=== PATIENT | female | born 1935 | race Caucasian/White ===

== ENCOUNTER 2018-02-07 02:00 | Inpatient (IN) | payer MEDICARE, OTHER ==
[2018-02-07 02:58] LABS: BASO % 0.6 % (0-2.0); EOS % 2.5 % (0-4.5); HEMATOCRIT 24.7 % (32.4-45.2); HEMOGLOBIN 8.1 GM/dL (10.7-15.3); LYMPH % 2.6 % (8-40); MCH 29.1 pg (25.7-33.7); MCHC 32.8 g/dl (32.0-36.0); MEAN CELL VOLUME 88.5 fl (80-96); MEAN PLT VOLUME 9.8 fl (7.5-11.1); MONO % 4.7 % (3.8-10.2); NEUT % 89.6 % (42.8-82.8); PLATELET COUNT 288 K/MM3 (134-434); RBC 2.79 M/mm3 (3.60-5.2); RDW 18.8 % (11.6-15.6); WHITE BLOOD COUNT 19.8 K/mm3 (4.0-10.0)
--- NOTE | 2018-02-07 03:07 | PDOC ---
Attending Attestation - Resident Resident Name: Lianna Tinajero - ED Attending Attestation I have performed the following: I have examined & evaluated the patient, The case was reviewed & discussed with the resident, I agree w/resident's findings & plan - HPI HPI: 02/07/18 03:06 Pt comes with SOB and decreased O2sat despite her trach collar/trach tube. Pt was suctioned with bloody mucus and sats came up. However she is not febrile, but continues to have mucus production thru tube and desaturation. - Physicial Exam PE: 02/07/18 23:57 AGree with resident exam - Critical Care Time Total Critical Care Time: 60 Critical Care Statement: The care of this patient involved high complexity decision making to prevent further life threatening deterioration of the patient 's condition and/or to evaluate & treat vital organ system(s) failure or risk of failure. - Medical Decision Making 02/07/18 04:56 Pt comes with fever,SOB, pneumonia, UTI, no sepsis, but SOB. Pt has a trach collar in place. She also has anasarca; BNP is in the thousands. BP is low, and BUN/Cr are elevated, so I will not treat with lasix 02/07/18 04:59 Vocomycin, Zosyn and Zithromax given. <Nelida Calvert - Last Filed: 02/07/18 23:57> Heart Score/ECG Review - ECG Intrepretation Comment:: 02/07/18 04:53 Completed 4:27:50 sinus rhythm with marked sinus arrhythia Low voltage QRS Cannot rule out Anteroseptal infarct, age undetermined Abnormal ECG Vent. rate [address] interval 172 ms QRS duration 68 ms <Donald Hernandez - Last Filed: 02/07/18 04:53>
[2018-02-07] MEDS ORDERED: ACETAMINOPHEN INJECTION 100 ML IVPB ONE (03:17)
[2018-02-07 03:18] LABS: URINE APPEARANCE TURBID; URINE BILIRUBIN NEGATIVE (<2.0 mg/dL); URINE COLOR AMBER; URINE GLUCOSE (UA) NEGATIVE (NEGATIVE); URINE KETONE TRACE (NEGATIVE); URINE NITRITE NEGATIVE (NEGATIVE); URINE UROBILINOGEN NEGATIVE mg/dL (0.2-1.0)
[2018-02-07 03:19] LABS: URINE LEUK ESTERASE 3+ (NEGATIVE); URINE PROTEIN 2+ (NEGATIVE)
[2018-02-07] MEDS ORDERED: ACETAMINOPHEN 1000 MG/100 ML VIAL (NON FORMULARY) IVPB ONE (03:21)
[2018-02-07] MEDS ORDERED: SODIUM CHLORIDE 0.9% 500 ML INFUS.BAG IV ONE (03:21)
[2018-02-07 03:25] LABS: URINE BACTERIA RARE /hpf (NONE SEEN); URINE MUCUS RARE; YEAST MANY
[2018-02-07 03:26] LABS: INR 1.19 (0.82-1.09); PROTHROMBIN TIME (PATIENT) 13.5 SEC (9.7-13.0)
[2018-02-07 03:28] LABS: ALBUMIN 1.8 g/dl (3.4-5.0); ANION GAP 5 (8-16); BILIRUBIN,TOTAL 0.2 mg/dL (0.2-1.0); BLOOD UREA NITROGEN 39 mg/dL (7-18); CALCIUM 9.6 mg/dL (8.5-10.1); CHLORIDE 94 mmol/L (98-107); CO2 39 mmol/L (21-32); CREATININE 1.1 mg/dL (0.55-1.02); GLUCOSE,RANDOM 148 mg/dL (74-106); SGOT/AST 15 U/L (15-37); SGPT/ALT < 6 U/L (12-78); SODIUM 138 mmol/L (136-145); TOT PROT 6.2 g/dl (6.4-8.2)
[2018-02-07 03:30] LABS: ALK PHOS 65 U/L (45-117); N-TERMINAL BNP 13485.56 pg/ml (5-450)
[2018-02-07] MEDS ORDERED: PIPERACILLIN/TAZOB 3.375 GM 3.375 GM/50 ML BAG IVPB ONE (03:43)
--- NOTE | 2018-02-07 03:56 | PDOC ---
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 EMS notes that when they arrived on scene at the SNF she was ashen and hypoxic. They removed her from the vent, suctioned her, and Ambu-Bagged her with improvement in her O2 and mental status. They do note that she coughed up what looked like Ensure chocolate shake and believe that she aspirated this. The patient has been seen here at [facility] for similar respiratory distress in the past and was most recently admitted for this in 10/2017. Here in the ED she is unable to provide any of her medical history as she is nonverbal. <Lianna Tinajero - Last Filed: 02/07/18 05:38> - General Chief Complaint: Respiratory Stated Complaint: DIFFICULTY BREATHING Time Seen by Provider: 02/07/18 02:55 Past History <EnrikeNelida - Last Filed: 02/07/18 05:00> - Past Medical History Anemia: No Cardiac Disorders: (Afib) COPD: No Diabetes: Yes GI Disorders: Yes (GERD,) HTN: Yes Hypercholesterolemia: Yes Psychiatric Problems: Yes (depression,) - Suicide/Smoking/Psychosocial Hx Smoking History: Unknown if ever smoked Have you smoked in the past 12 months: No Hx Alcohol Use: No Drug/Substance Use Hx: No Substance Use Type: None <Lianna Tinajero - Last Filed: 02/07/18 05:38> - Past Medical History Allergies/Adverse Reactions: Allergies Allergy/AdvReac Type Severity Reaction Status Date / Time No Known Allergies Allergy Verified 11/09/17 15:43 Home Medications: Ambulatory Orders Acetaminophen Oral Solution [Tylenol 160mg/5mL Oral Solution -] 160 mg GT Q6H PRN 11/09/17 Albuterol 0.083% Nebulizer Hue [Ventolin 0.083% Nebulizer Soln -] 1 neb NEB Q4H PRN 11/09/17 Aspirin [ASA -] 81 mg GT DAILY 11/09/17 Atorvastatin Ca [Lipitor] 80 mg GT HS 11/09/17 Budesonide [Pulmicort 0.5 mg Nebulizer -] 1 neb GT BID 11/09/17 Collagenase Clostridium Hist. [Santyl -] 1 applic TP DAILY 11/09/17 Insulin Glargine,Hum.rec.anlog [Lantus] 18 unit SQ HS 11/09/17 Ipratropium [place] [Atrovent Hfa] 4 puff IH Q4H 11/09/17 Ranitidine HCl 150 mg GT DAILY 11/09/17 Sennosides [Senna] 8.8 mg GT HS 11/09/17 Venlafaxine HCl ER [Effexor Xr -] 75 mg GT DAILY 11/09/17 Albuterol 2.5/Ipratropium 0.5 [Duoneb -] 1 amp NEB Q6H PRN #60 amp 11/26/17 Amino Acids/Protein Hydrolys [Prosource No Carb Liquid Pkt] 30 ml GT DAILY packet 11/26/17 Ascorbic Acid [Vitamin C -] 500 mg GT BID tablet 11/26/17 Bacitracin - [Bacitracin Topical Ointment -] 1 applic TP BID tube 11/26/17 Gabapentin Liquid [Neurontin Oral Liquid -] 100 mg GT TID ml 11/26/17 Insulin Sliding Scale [Novolog Vial Sliding Scale -] 1 vial SQ TIDAC units 10/15 Multivitamins [Multivit ([facility] Formulary)] 1 tab NR DAILY #30 tab 11/26/17 Nystatin/Triamcinolone Top Oin [Mycolog II -] 1 applic TP BID applic 11/26/17 traMADol HCL [Ultram -] 50 mg PO Q6H PRN tablet MDD 4 11/26/17 Insulin (Levemir) [Levemir Vial] 15 units SQ HS ml 11/27/17 Piperacillin/Tazob 3.375 gm [Zosyn 3.375GM Ivpb (Premix)] 3.375 gm IV TID #21 ivpb 11/27/17 Review of Systems - Review of Systems Able to Perform ROS?: No (Nonverbal) <Lianna Tinajero - Last Filed: 02/07/18 05:38> *Physical Exam - Vital Signs Last Vital Signs Temp Pulse Resp BP Pulse Ox 100.9 F H 100 H 14 129/71 98 02/07/18 03:15 02/07/18 02:16 02/07/18 04:30 02/07/18 02:00 02/07/18 02:16 <Nelida Calvert - Last Filed: 02/07/18 05:00> - Vital Signs Last Vital Signs Temp Pulse Resp BP Pulse Ox 100.9 F H 100 H 14 129/71 98 02/07/18 03:15 02/07/18 02:16 02/07/18 02:16 02/07/18 02:00 02/07/18 02:16 - Physical Exam General Appearance: Yes: Other (elderly female patient with tracheostomy tube in place, being Ambu-Bagged, eyes are open but she does not track with her eyes or interact with examiners, nightgown with emesis, wearing diaper, Cotter indwelling) HEENT: positive: SUZANNE, Hearing Grossly Normal, Other (dry mucous membranes). negative: Scleral Icterus (R), Scleral Icterus (L), Nasal Congestion Neck: positive: Trachea midline, Supple, Other (trach in place). negative: Tender, Rigid Respiratory/Chest: positive: Respiratory Distress (mild), Crackles (left>right) . negative: Rhonchi, Stridor, Wheezing Cardiovascular: positive: Regular Rhythm, Edema (1+ to 2+ anasarca), Tachycardia. negative: JVD Gastrointestinal/Abdominal: positive: Soft, Protuberent, Other (PEG tube in place). negative: Tender, Organomegaly, Pulsatile Mass, Guarding Musculoskeletal: positive: Normal Inspection Extremity: positive: Normal Capillary Refill, Pedal Edema. negative: Tender, Cyanosis Integumentary: positive: Dry, Warm, Pale. negative: Erythema, Diaphoresis, Rash , Bruising Neurologic: positive: Alert, Normal Mood/Affect, Normal Response, Motor Strength 5/5, Other (nonverbal, does not follow commands). negative: Fully Oriented, EOM Palsy, Facial Droop <Lianna Tinajero - Last Filed: 02/07/18 05:38> Heart Score/ECG Review #1 NSR, rate of 89, normal axis and intervals, Q-waves in V1-3, t wave flattening in I and aVL. <Lianna Tinajero - Last Filed: 02/07/18 05:38> ED Treatment Course - LABORATORY CBC & Chemistry Diagram: 02/07/18 02:30 02/07/18 02:30 - ADDITIONAL ORDERS Additional order review: Laboratory Results 02/07/18 02/07/18 02/07/18 03:00 02:30 02:30 WBC RBC Hgb Hct MCV MCH MCHC RDW Plt Count MPV Neutrophils % Lymphocytes % Monocytes % Eosinophils % Basophils % PT with INR 13.50 H INR 1.19 H Sodium 138 Potassium 4.0 Chloride 94 L Carbon Dioxide 39 H Anion Gap 5 L BUN 39 H Creatinine 1.1 H Creat Clearance w eGFR 47.67 Random Glucose 148 H Lactic Acid Calcium 9.6 Total Bilirubin 0.2 D AST 15 ALT < 6 L Alkaline Phosphatase 65 Creatine Kinase 30 Troponin I < 0.02 B-Natriuretic Peptide 10003.56 H Total Protein 6.2 L Albumin 1.8 L Urine Color [place] Urine Appearance Turbid Urine pH 5.0 Ur Specific [place] 1.017 Urine Protein 2+ H Urine Glucose (UA) Negative Urine Ketones Trace H Urine Blood Negative Urine Nitrite Negative Urine Bilirubin Negative Urine Urobilinogen Negative Ur Leukocyte Esterase 3+ H Urine WBC (Auto) 1996 Urine RBC (Auto) 70 Urine Bacteria Rare Urine Mucus Rare Urine Yeast Many 02/07/18 02/07/18 02:30 00:23 WBC 19.8 H D RBC 2.79 L Hgb 8.1 L D Hct 24.7 L MCV 88.5 MCH 29.1 MCHC 32.8 RDW 18.8 H Plt Count 288 D MPV 9.8 Neutrophils % 89.6 H Lymphocytes % 2.6 L D Monocytes % 4.7 Eosinophils % 2.5 Basophils % 0.6 PT with INR INR Sodium Potassium Chloride Carbon Dioxide Anion Gap BUN Creatinine Creat Clearance w eGFR Random Glucose Lactic Acid 0.9 Calcium Total Bilirubin AST ALT Alkaline Phosphatase Creatine Kinase Troponin I B-Natriuretic Peptide Total Protein Albumin Urine Color Urine Appearance Urine pH Ur Specific [place] Urine Protein Urine Glucose (UA) Urine Ketones Urine Blood Urine Nitrite Urine Bilirubin Urine Urobilinogen Ur Leukocyte Esterase Urine WBC (Auto) Urine RBC (Auto) Urine Bacteria Urine Mucus Urine Yeast 02/07/18 02:30 RBC 2.79 L MCV 88.5 MCHC 32.8 RDW 18.8 H MPV 9.8 Neutrophils % 89.6 H Lymphocytes % 2.6 L D Monocytes % 4.7 Eosinophils % 2.5 Basophils % 0.6 - RADIOLOGY Radiology Studies Ordered: Category Date Time Status CHEST X-RAY PORTABLE* [RAD] Stat Radiology 02/07/18 02:47 Taken - Medications Given in the ED: ED Medications Discontinued Medications Generic Name Dose Route Start Last Admin Trade Name Myrna PRN Reason Stop Dose Admin Acetaminophen 1,000 mg 02/07/18 03:21 02/07/18 03:22 Ofirmev Injection - IVPB 02/07/18 03:22 1,000 mg NOW ONE Administration Sodium Chloride 500 ml 02/07/18 03:21 02/07/18 03:21 Normal Saline - IV 02/07/18 03:22 500 ml NOW ONE Administration <Nelida Calvert - Last Filed: 02/07/18 05:00> - LABORATORY CBC & Chemistry Diagram: 02/07/18 02:30 02/07/18 02:30 - ADDITIONAL ORDERS Additional order review: Laboratory Results 02/07/18 02/07/18 02/07/18 03:00 02:30 02:30 PT with INR 13.50 H INR 1.19 H Sodium 138 Potassium 4.0 Chloride 94 L Carbon Dioxide 39 H Anion Gap 5 L BUN 39 H Creatinine 1.1 H Creat Clearance w eGFR 47.67 Random Glucose 148 H Lactic Acid Calcium 9.6 Total Bilirubin 0.2 D AST 15 ALT < 6 L Alkaline Phosphatase 65 Creatine Kinase 30 Troponin I < 0.02 B-Natriuretic Peptide 54698.56 H Total Protein 6.2 L Albumin 1.8 L Urine Color [place] Urine Appearance Turbid Urine pH 5.0 Ur Specific [place] 1.017 Urine Protein 2+ H Urine Glucose (UA) Negative Urine Ketones Trace H Urine Blood Negative Urine Nitrite Negative Urine Bilirubin Negative Urine Urobilinogen Negative Ur Leukocyte Esterase 3+ H Urine WBC (Auto) 1995 Urine RBC (Auto) 70 Urine Bacteria Rare Urine Mucus Rare Urine Yeast Many 02/07/18 00:23 PT with INR INR Sodium Potassium Chloride Carbon Dioxide Anion Gap BUN Creatinine Creat Clearance w eGFR Random Glucose Lactic Acid 0.9 Calcium Total Bilirubin AST ALT Alkaline Phosphatase Creatine Kinase Troponin I B-Natriuretic Peptide Total Protein Albumin Urine Color Urine Appearance Urine pH Ur Specific [place] Urine Protein Urine Glucose (UA) Urine Ketones Urine Blood Urine Nitrite Urine Bilirubin Urine Urobilinogen Ur Leukocyte Esterase Urine WBC (Auto) Urine RBC (Auto) Urine Bacteria Urine Mucus Urine Yeast 02/07/18 02:30 RBC 2.79 L MCV 88.5 MCHC 32.8 RDW 18.8 H MPV 9.8 Neutrophils % 89.6 H Lymphocytes % 2.6 L D Monocytes % 4.7 Eosinophils % 2.5 Basophils % 0.6 - Medications Given in the ED: ED Medications Discontinued Medications Generic Name Dose Route Start Last Admin Trade Name Myrna PRN Reason Stop Dose Admin Acetaminophen 1,000 mg 02/07/18 03:21 02/07/18 03:22 Ofirmev Injection - IVPB 02/07/18 03:22 1,000 mg NOW ONE Administration Sodium Chloride 500 ml 02/07/18 03:21 02/07/18 03:21 Normal Saline - IV 02/07/18 03:22 500 ml NOW ONE Administration <Lianna Tinajero - Last Filed: 02/07/18 05:38> Medical Decision Making - Medical Decision Making Elderly female patient BIBA for respiratory distress and hypoxia, apparent aspiration of Ensure shake. Initial Vital Signs Pulse Resp BP Pulse Ox 93 H 24 129/71 100 02/07/18 02:00 02/07/18 02:00 02/07/18 02:00 02/07/18 02:00 Exam: Nonverbal, mild respiratory distress, left-sided crackles > right, anasarca, trach and PEG in place, nightgown soaked in emesis. DDX IBNLT: VS abnormalities (e.g. fever), toxic-metabolic (e.g. medications, drugs, electrolytes, thyroid), structural (e.g. epilepsy, CVA/TIA, ACS, PE), infectious (e.g. UTI, PNA, bronchitis, cellulitis, meningitis), psychiatric ( e.g. delirium, dementia, psychosis), etc. W/U ordered: Sepsis w/u, CVC placement. TX ordered: Zosyn, Vancomycin, Azithromycin (coverage for HCAP). EKG: NSR, rate of 89, normal axis and intervals, Q-waves in V1-3, t wave flattening in I and aVL. CXR: patchy bilateral consolidations most concentrated in left lingula Laboratory Tests 02/07/18 02/07/18 02/07/18 00:23 02:30 02:30 WBC 19.8 H D RBC 2.79 L Hgb 8.1 L D Hct 24.7 L MCV 88.5 MCH 29.1 MCHC 32.8 RDW 18.8 H Plt Count 288 D MPV 9.8 Neutrophils % 89.6 H Lymphocytes % 2.6 L D Monocytes % 4.7 Eosinophils % 2.5 Basophils % 0.6 PT with INR INR Sodium 138 Potassium 4.0 Chloride 94 L Carbon Dioxide 39 H Anion Gap 5 L BUN 39 H Creatinine 1.1 H Creat Clearance w eGFR 47.67 Random Glucose 148 H Lactic Acid 0.9 Calcium 9.6 Total Bilirubin 0.2 D AST 15 ALT < 6 L Alkaline Phosphatase 65 Creatine Kinase 30 Troponin I < 0.02 B-Natriuretic Peptide 57593.56 H Total Protein 6.2 L Albumin 1.8 L Urine Color Urine Appearance Urine pH Ur Specific [place] Urine Protein Urine Glucose (UA) Urine Ketones Urine Blood Urine Nitrite Urine Bilirubin Urine Urobilinogen Ur Leukocyte Esterase Urine WBC (Auto) Urine RBC (Auto) Urine Bacteria Urine Mucus Urine Yeast 02/07/18 02/07/18 02:30 03:00 WBC RBC Hgb Hct MCV MCH MCHC RDW Plt Count MPV Neutrophils % Lymphocytes % Monocytes % Eosinophils % Basophils % PT with INR 13.50 H INR 1.19 H Sodium Potassium Chloride Carbon Dioxide Anion Gap BUN Creatinine Creat Clearance w eGFR Random Glucose Lactic Acid Calcium Total Bilirubin AST ALT Alkaline Phosphatase Creatine Kinase Troponin I B-Natriuretic Peptide Total Protein Albumin Urine Color [place] Urine Appearance Turbid Urine pH 5.0 Ur Specific [place] 1.017 Urine Protein 2+ H Urine Glucose (UA) Negative Urine Ketones Trace H Urine Blood Negative Urine Nitrite Negative Urine Bilirubin Negative Urine Urobilinogen Negative Ur Leukocyte Esterase 3+ H Urine WBC (Auto) 1996 Urine RBC (Auto) 70 Urine Bacteria Rare Urine Mucus Rare Urine Yeast Many Vital Signs Temperature 100.9 F H 02/07/18 03:15 Pulse Rate 91 H 02/07/18 05:10 Respiratory Rate 14 02/07/18 05:10 Blood Pressure 97/58 02/07/18 05:10 O2 Sat by Pulse Oximetry (%) 100 02/07/18 05:10 The patient is septic, has a UTI, also e/o aspiration PNA on CXR. They require further hospital observation, workup, and treatment. Microblog sent to [facility] for admission. Spoke with Soniachristine, in agreement patient to be admitted to ICU. Spoke with ICU HARDWARE TEST ENGINEER who will be leaving at 6 am. Decision to Admit order placed to [facility] covering attending Dr. Carlton. <Lianna Tinajero - Last Filed: 02/07/18 05:38> *DC/Admit/Observation/Transfer - Discharge Dispostion Decision to Admit order: Yes <CalvertVirginieNelida - Last Filed: 02/07/18 05:00> - Discharge Dispostion Decision to Admit order: Yes <Lianna Tinajero - Last Filed: 02/07/18 05:38> Diagnosis at time of Disposition: Decubitus ulcer of sacral region, stage 4 Sepsis Qualifiers: Sepsis type: sepsis due to unspecified organism Qualified Code(s): A41.9 - Sepsis, unspecified organism Pneumonia Qualifiers: Pneumonia type: due to unspecified organism Laterality: unspecified laterality Lung location: unspecified part of lung Qualified Code(s): J18.9 - Pneumonia, unspecified organism UTI (urinary tract infection) Qualifiers: Urinary tract infection type: site unspecified Hematuria presence: without hematuria Qualified Code(s): N39.0 - Urinary tract infection, site not specified CHF (congestive heart failure) Qualifiers: Heart failure type: unspecified Heart failure chronicity: unspecified Qualified Code(s): I50.9 - Heart failure, unspecified Fever Qualifiers: Fever type: unspecified Qualified Code(s): R50.9 - Fever, unspecified Dementia Qualifiers: Dementia type: unspecified type Dementia behavioral disturbance: without behavioral disturbance Qualified Code(s): F03.90 - Unspecified dementia without behavioral disturbance Atrial fibrillation Qualifiers: Atrial fibrillation type: paroxysmal Qualified Code(s): I48.0 - Paroxysmal atrial fibrillation - Discharge Dispostion Condition at time of disposition: Guarded
[2018-02-07] MEDS ORDERED: AZITHROMYCIN IVPB 500 MG in DEXTROSE 5%-WATER - 250 ML IVPB ONE (04:32)
[2018-02-07] MEDS ORDERED: VANCOMYCIN 1,000 MG in DEXTROSE 5%-WATER - 250 ML IVPB ONE (04:32)
[2018-02-07] MEDS ORDERED: AZITHROMYCIN IVPB 250 ML IVPB ONE (04:42)
[2018-02-07] MEDS ORDERED: VANCOMYCIN 1 GRAM (PRE-DOCKED) 1,000 MG/250 ML BAG IVPB ONE (04:43)
--- NOTE | 2018-02-07 05:12 | HP ---
CHIEF COMPLAINT: aspirated PCP: [facility] HISTORY OF PRESENT ILLNESS: Pt is an 82 y/o F [facility] resident with PMH COPD s/p trach, DM, DVT, AF, Lung CA, Stage IV decub, Dementia, nonverbal who was reportedly given ensure, which she aspirated. Pt became distressed and EMS was called. Suctioning yielded copious amounts of her ensure and her status improved. In ED, IV access was unsuccessful, so a L femoral line was placed. ER course was notable for: (1) Fever 100.9 (2) 19 (higher than usual leukocytosis), Hb 8.1, Migration Specialist 1.1, BNP 72998, Trop neg, UA 3+LE/WBCs, Yeast (3) CXR: b/l patchy opacification, blunting of R Costo-phrenic angle Recent Travel: no PAST MEDICAL HISTORY: [facility] resident with PMH COPD s/p trach, DM, DVT, AF, Lung CA, Stage IV decub, Dementia, nonverbal PAST SURGICAL HISTORY: Social History: Smoking: no Alcohol:no Drugs: no Family History: Allergies No Known Allergies Allergy (Verified 11/09/17 15:43) HOME MEDICATIONS: Home Medications Medication Instructions Recorded Acetaminophen Oral Solution 160 mg GT Q6H PRN 11/09/17 [Tylenol 160mg/5mL Oral Solution -] Albuterol 0.083% Nebulizer Hue 1 neb NEB Q4H PRN 11/09/17 [Ventolin 0.083% Nebulizer Soln -] Aspirin [ASA -] 81 mg GT DAILY 11/09/17 Atorvastatin Ca [Lipitor] 80 mg GT HS 11/09/17 Budesonide [Pulmicort 0.5 mg 1 neb GT BID 11/09/17 Nebulizer -] Collagenase Clostridium Hist. 1 applic TP DAILY 11/09/17 [Santyl -] Insulin Glargine,Hum.rec.anlog 18 unit SQ HS 11/09/17 [Lantus] Ipratropium [place] [Atrovent Hfa] 4 puff IH Q4H 11/09/17 Ranitidine HCl 150 mg GT DAILY 11/09/17 Sennosides [Senna] 8.8 mg GT HS 11/09/17 Venlafaxine HCl ER [Effexor Xr -] 75 mg GT DAILY 11/09/17 Albuterol 2.5/Ipratropium 0.5 1 amp NEB Q6H PRN #60 amp 11/26/17 [Duoneb -] Amino Acids/Protein Hydrolys 30 ml GT DAILY packet 11/26/17 [Prosource No Carb Liquid Pkt] Ascorbic Acid [Vitamin C -] 500 mg GT BID tablet 11/26/17 Bacitracin - [Bacitracin Topical 1 applic TP BID tube 11/26/17 Ointment -] Gabapentin Liquid [Neurontin Oral 100 mg GT TID ml 11/26/17 Liquid -] Insulin Sliding Scale [Novolog 1 vial SQ TIDAC units 11/26/17 Vial Sliding Scale -] Multivitamins [Multivit ([facility] 1 tab NR DAILY #30 tab 11/26/17 Formulary)] Nystatin/Triamcinolone Top Oin 1 applic TP BID applic 11/26/17 [Mycolog II -] traMADol HCL [Ultram -] 50 mg PO Q6H PRN tablet MDD 4 11/26/17 Insulin (Levemir) [Levemir Vial] 15 units SQ HS ml 11/27/17 Piperacillin/Tazob 3.375 gm [Zosyn 3.375 gm IV TID #21 ivpb 11/27/17 3.375GM Ivpb (Premix)] REVIEW OF SYSTEMS Unable to obtain. Pt nonverbal. PHYSICAL EXAMINATION Vital Signs - 24 hr 02/07/18 02/07/18 02/07/18 02:00 02:16 03:15 Temperature 100.9 F H Pulse Rate 93 H 100 H Respiratory 24 14 Rate Blood Pressure 129/71 O2 Sat by Pulse 100 98 Oximetry (%) 02/07/18 04:30 Temperature Pulse Rate Respiratory 14 Rate Blood Pressure O2 Sat by Pulse Oximetry (%) GENERAL: Awake, Unresponsive, not following commands. Reportedly this is baseline. HEAD: Normal with no signs of trauma. EYES: sclera anicteric, conjunctiva clear. No lid lag. EARS, NOSE, THROAT: oropharynx clear with food particulates around but no lesions. Pt does not cooperate with exam. Moist mucous membranes. NECK: Trach tube supple without lymphadenopathy, JVD, or masses. LUNGS: Breath sounds equal, Coarse breath sounds. No accessory muscle use. HEART: Regular rate and rhythm, normal S1 and S2 without murmur, rub or gallop. ABDOMEN: PEG cdi. L fem line cdi. Stage IV sacral decub. Soft, not distended, normoactive bowel sounds, no guarding, no rebound, no masses. No hepatomegaly or splenomegaly. MUSCULOSKELETAL: Normal range of motion at all joints. No bony deformities or tenderness. No CVA tenderness. UPPER EXTREMITIES: 2+ pulses, warm, well-perfused. No cyanosis. No clubbing. No peripheral edema. LOWER EXTREMITIES: 2+ pulses, warm, well-perfused. No calf tenderness. No peripheral edema. somewhat atrophic NEUROLOGICAL: nonverbal PSYCHIATRIC: nonverbal SKIN: Stage IV decub. Small superficial L buttock lesion appears self- inflicted. Laboratory Results - last 24 hr 02/07/18 02/07/18 02/07/18 00:23 02:30 02:30 WBC 19.8 H D RBC 2.79 L Hgb 8.1 L D Hct 24.7 L MCV 88.5 MCH 29.1 MCHC 32.8 RDW 18.8 H Plt Count 288 D MPV 9.8 Neutrophils % 89.6 H Lymphocytes % 2.6 L D Monocytes % 4.7 Eosinophils % 2.5 Basophils % 0.6 PT with INR INR Sodium 138 Potassium 4.0 Chloride 94 L Carbon Dioxide 39 H Anion Gap 5 L BUN 39 H Creatinine 1.1 H Creat Clearance w eGFR 47.67 Random Glucose 148 H Lactic Acid 0.9 Calcium 9.6 Total Bilirubin 0.2 D AST 15 ALT < 6 L Alkaline Phosphatase 65 Creatine Kinase 30 Troponin I < 0.02 B-Natriuretic Peptide 26784.56 H Total Protein 6.2 L Albumin 1.8 L Urine Color Urine Appearance Urine pH Ur Specific [place] Urine Protein Urine Glucose (UA) Urine Ketones Urine Blood Urine Nitrite Urine Bilirubin Urine Urobilinogen Ur Leukocyte Esterase Urine WBC (Auto) Urine RBC (Auto) Urine Bacteria Urine Mucus Urine Yeast 02/07/18 02/07/18 02:30 03:00 WBC RBC Hgb Hct MCV MCH MCHC RDW Plt Count MPV Neutrophils % Lymphocytes % Monocytes % Eosinophils % Basophils % PT with INR 13.50 H INR 1.19 H Sodium Potassium Chloride Carbon Dioxide Anion Gap BUN Creatinine Creat Clearance w eGFR Random Glucose Lactic Acid Calcium Total Bilirubin AST ALT Alkaline Phosphatase Creatine Kinase Troponin I B-Natriuretic Peptide Total Protein Albumin Urine Color [place] Urine Appearance Turbid Urine pH 5.0 Ur Specific [place] 1.017 Urine Protein 2+ H Urine Glucose (UA) Negative Urine Ketones Trace H Urine Blood Negative Urine Nitrite Negative Urine Bilirubin Negative Urine Urobilinogen Negative Ur Leukocyte Esterase 3+ H Urine WBC (Auto) 1995 Urine RBC (Auto) 70 Urine Bacteria Rare Urine Mucus Rare Urine Yeast Many ASSESSMENT/PLAN: Pt is an 82 y/o F [facility] resident with PMH COPD s/p trach, DM, DVT, AF, Lung CA, Stage IV decub, Dementia, nonverbal who was reportedly given ensure, which she aspirated. Pt is being admitted for evaluation and treatment of Aspiration PNA. #Sepsis 2/2 UTI vs Aspiration PNA -Suctioning yielde dlots of ensure -Ox improved after suction -febrile -WBC increased from baseline -CXR with opacities -Vanc, Zosyn -Hassan Cx -ID consult #UTI -LE, WBC on UA -on Zosyn #CHF exacerbation -BNP - #COPD s/p trach -vent AC mode. rate 14, tidal vol 500, FiO2 50 #DM -BGM ACHS -ISS #AF -Not on AC per record #Stage IV decub -local wound care #FEN -NS at 50. Sepsis, CHF -lytes wnl -NPO #PPx -HSQ #Dispo -Admit for Sepsis Visit type - Emergency Visit Emergency Visit: Yes ED Registration Date: 02/07/18 Care time: The patient presented to the Emergency Department on the above date and was hospitalized for further evaluation of their emergent condition. - New Patient This patient is new to me today: Yes Date on this admission: 02/09/18 - Critical Care Critical Care patient: Yes Total Critical Care Time (in minutes): 25 Hospitalist Screening - Colonoscopy Questionnaire Colonoscopy Questionnaire: Colonoscopy Questionnaire - Patient: 50 - 75 years old and never had a screening colonoscopy: Unknown History of colon or rectal polyps, or CA: Unknown History of IBD, Crohn's disease or UC: Unknown History of abdominal radiation therapy as a child: Unknown - Relative: 1 with colon or rectal CA, or polyps at age 60 or younger: Unknown Colon or rectal CA diagnosed at age 45 or younger: Unknown Multiple relatives with colon or rectal CA: Unknown - Outcome: Screening Result: Negative Screen
[2018-02-07] MEDS ORDERED: SODIUM CHLORIDE 1,000 ML IV SCH ×2 (05:15→05:27)
--- NOTE | 2018-02-07 05:30 | PN ---
Teaching Attending Note Name of Resident: Jesus Manuel Burns ATTENDING PHYSICIAN STATEMENT I saw and evaluated the patient. I reviewed the resident's note and discussed the case with the resident. I agree with the resident's findings and plan as documented. SUBJECTIVE: OBJECTIVE: ASSESSMENT AND PLAN: Pt is an 82 y/o F [facility] resident with PMH COPD s/p trach, DM, DVT, AF, Lung CA, Stage IV decub, Dementia, nonverbal who was reportedly given ensure, which she aspirated. Pt is being admitted for evaluation and treatment of Aspiration PNA. #Sepsis 2/2 UTI vs Aspiration PNA -febrile - neutrophilic -CXR with opacities -Vanc, Zosyn -Hassan Cx -ID consult - fluid hydration - admit to ICU #UTI -LE, WBC on UA -on Zosyn #CHF manage the patient for sepsis now will hold antihypertensive medication #COPD s/p trach -vent AC mode. rate 14, tidal vol 500, FiO2 50
[2018-02-07] MEDS ORDERED: HEPARIN NA (PORCINE) 5,000 UNITS/ML 1ML VIAL ONE (07:01)
[2018-02-07] MEDS: HEPARIN NA (PORCINE) 5,000 UNITS/ML 1ML VIAL SQ SCH ×3 (07:01→21:01)
[2018-02-07 07:19] LABS: HEMOGLOBIN 7.9 GM/dL (10.7-15.3); MCH 28.9 pg (25.7-33.7); MCHC 32.8 g/dl (32.0-36.0); MEAN CELL VOLUME 88.3 fl (80-96); MEAN PLT VOLUME 9.4 fl (7.5-11.1); PLATELET COUNT 264 K/MM3 (134-434); RBC 2.72 M/mm3 (3.60-5.2); RDW 18.8 % (11.6-15.6); WHITE BLOOD COUNT 22.7 K/mm3 (4.0-10.0)
[2018-02-07 07:42] LABS: ALBUMIN 1.8 g/dl (3.4-5.0); ALK PHOS 67 U/L (45-117); ANION GAP 6 (8-16); BILIRUBIN,TOTAL 0.3 mg/dL (0.2-1.0); BLOOD UREA NITROGEN 41 mg/dL (7-18); CALCIUM 9.5 mg/dL (8.5-10.1); CHLORIDE 94 mmol/L (98-107); CO2 36 mmol/L (21-32); CREATININE 1.1 mg/dL (0.55-1.02); GLUCOSE,RANDOM 137 mg/dL (74-106); INR 1.2 (0.82-1.09); POTASSIUM 4.1 mmol/L (3.5-5.1); PROTHROMBIN TIME (PATIENT) 13.6 SEC (9.7-13.0); SGOT/AST 15 U/L (15-37); SGPT/ALT < 6 U/L (12-78); SODIUM 136 mmol/L (136-145); TOT PROT 6.1 g/dl (6.4-8.2)
[2018-02-07 07:43] LABS: ARTERIAL BLD GAS O2 SATURATION 96.4 % (90-98.9); ARTERIAL BLOOD GAS PCO2 58.9 mmHg (35-45); ARTERIAL BLOOD GAS PO2 82.4 mmHg (68-100); ARTERIAL BLOOD GAS pH 7.38 (7.35-7.45)
[2018-02-07 07:44] LABS: ALLENS TEST POSITIVE
[2018-02-07 07:45] LABS: ACTIVATED PTT 26.5 SECONDS (26.9-34.4)
--- NOTE | 2018-02-07 08:20 | EKG ---
Test Reason : Blood Pressure : / mmHG Vent. Rate : 089 BPM Atrial Rate : 089 BPM P-R Int : 172 ms QRS Dur : 068 ms QT Int : 346 ms P-R-T Axes : 086 087 077 degrees QTc Int : 420 ms SINUS RHYTHM WITH MARKED SINUS ARRHYTHMIA LOW VOLTAGE QRS CANNOT RULE OUT ANTEROSEPTAL INFARCT (CITED ON OR BEFORE 27-JUN-2000) ABNORMAL ECG WHEN COMPARED WITH ECG OF 09-NOV-2017 15:00, NO SIGNIFICANT CHANGE WAS FOUND Confirmed by RAKAN BRYAN, JUAN JOSÉ ([id number]) on 02/07/2018 8:19:59 AM Referred By: Confirmed By:JUAN JOSÉ BLEDSOE MD
[2018-02-07 09:36] LABS: ANISOCYTOSIS 2+; PLATELET ESTIMATE NORMAL
--- NOTE | 2018-02-07 09:46 | CONSULT ---
Consult Consult Specialty:: CCM/PULM Referred by:: KRISTIE Reason for Consultation:: Sepsis - History of Present Illness History of Present Illness: 82 F, known to me from previous admissions. Chronic respiratory failure via tracheostomy, COPD, DVT, A-fib, PEG tube, known lung CA (dominant mass in the JANY with bilateral nodules likely mets), DM, sacral decubitus ulcer, and dementia. Admitted via the ER due to respiratory distress and O2 desaturation. Apparently EMS removed her from the vent, suctioned her, and Ambu-Bagged her with improvement in her O2 and mental status. Apparently she coughed out material that appeared like chocolate Ensure. IO and femoral TLC placed in the ER. - History Source History Provided By: Medical Record Limitations to Obtaining History: Clinical Condition - Past Medical History STORAGE MANAGER: Yes: Dementia Cardio/Vascular: Yes: AFIB, Other (DVT) Pulmonary: Yes: Cancer (Lung), COPD, Other (Tracheostomy) Gastrointestinal: Yes: Other (PEG) Endocrine: Yes: Diabetes Mellitus - Alcohol/Substance Use Hx Alcohol Use: No - Smoking History Smoking history: Unknown if ever smoked Have you smoked in the past 12 months: No Home Medications - Allergies Allergies/Adverse Reactions: Allergies Allergy/AdvReac Type Severity Reaction Status Date / Time No Known Allergies Allergy Verified 02/07/18 06:49 - Home Medications Home Medications: Ambulatory Orders Acetaminophen Oral Solution [Tylenol 160mg/5mL Oral Solution -] 160 mg GT Q6H PRN 11/09/17 Albuterol 0.083% Nebulizer Hue [Ventolin 0.083% Nebulizer Soln -] 1 neb NEB Q4H PRN 11/09/17 Aspirin [ASA -] 81 mg GT DAILY 11/09/17 Ipratropium Rusk [Atrovent Hfa] 4 puff IH Q4H 11/09/17 Sennosides [Senna] 9.7 ml GT HS 11/09/17 Albuterol 2.5/Ipratropium 0.5 [Duoneb -] 1 amp NEB Q6H PRN #60 amp 11/26/17 Amino Acids/Protein Hydrolys [Prosource No Carb Liquid Pkt] 30 ml GT DAILY packet 11/26/17 Bacitracin - [Bacitracin Topical Ointment -] 1 applic TP BID tube 11/26/17 Nystatin/Triamcinolone Top Oin [Mycolog II -] 1 applic TP BID applic 11/26/17 Ascorbic Acid [Vitamin C -] 500 mg GT BID 02/07/18 Budesonide/Formeterol Fumarate [SYMBICORT 160/4.5mcg -] 2 inh PO BID 02/07/18 Carbidopa/Levodopa [Carbidopa-Levodopa 25-100 Tab] 1 each GT Q8H 02/07/18 Docusate Liquid [Colace Liquid -] 100 mg GT TID 02/07/18 Ergocalciferol (Vitamin D2) [Ergocalciferol] 6.25 ml GT WEEKLY 02/07/18 Famotidine [Pepcid -] 20 mg GT DAILY 02/07/18 Ferrous Sulfate *Liquid* [Feosol] 6.8 ml PO DAILY 02/07/18 Insulin Glargine,Hum.rec.anlog [Lantus Solostar] 5 unit SQ HS 02/07/18 Zinc Oxide 20% Topical Oint 454 gm NR ASDIR 02/07/18 Review of Systems Unable to obtain ROS, reason: not able to provide Physical Exam Vital Signs: Vital Signs Temperature 100.7 F H 02/07/18 08:00 Pulse Rate 92 H 02/07/18 08:00 Respiratory Rate 14 02/07/18 09:24 Blood Pressure 90/56 02/07/18 08:00 O2 Sat by Pulse Oximetry (%) 93 L 02/07/18 07:45 Constitutional: Yes: Other (vented) Eyes: Yes: Conjunctiva Clear HENT: Yes: Atraumatic, Normocephalic Neck: Yes: Trachea Midline, Other (Trach intact) Cardiovascular: Yes: Pulse Irregular Respiratory: Yes: Mechanically Ventilated, Poor Air Entry, Rhonchi, Tachypnea. No: Stridor, Wheezes Gastrointestinal: Yes: Normal Bowel Sounds, Soft Musculoskeletal: Yes: WNL Extremities: Yes: WNL Edema: No Peripheral Pulses WNL: Yes Integumentary: Yes: WNL Neurological: Yes: Unresponsive Labs: CBC, BMP 02/07/18 07:00 02/07/18 07:00 Imaging - Results Chest X-ray: Report Reviewed, Image Reviewed Problem List - Problems (1) Atrial fibrillation Code(s): I48.91 - UNSPECIFIED ATRIAL FIBRILLATION Qualifiers: Atrial fibrillation type: paroxysmal Qualified Code(s): I48.0 - Paroxysmal atrial fibrillation (2) CHF (congestive heart failure) Code(s): I50.9 - HEART FAILURE, UNSPECIFIED Qualifiers: Heart failure type: unspecified Heart failure chronicity: unspecified Qualified Code(s): I50.9 - Heart failure, unspecified (3) Decubitus ulcer of sacral region, stage 4 Code(s): L89.154 - PRESSURE ULCER OF SACRAL REGION, STAGE 4 (4) Dementia Code(s): F03.90 - UNSPECIFIED DEMENTIA WITHOUT BEHAVIORAL DISTURBANCE Qualifiers: Dementia type: unspecified type Dementia behavioral disturbance: without behavioral disturbance Qualified Code(s): F03.90 - Unspecified dementia without behavioral disturbance (5) Fever Code(s): R50.9 - FEVER, UNSPECIFIED Qualifiers: Fever type: unspecified Qualified Code(s): R50.9 - Fever, unspecified (6) Pneumonia Code(s): J18.9 - PNEUMONIA, UNSPECIFIED ORGANISM Qualifiers: Pneumonia type: due to unspecified organism Laterality: unspecified laterality Lung location: unspecified part of lung Qualified Code(s): J18.9 - Pneumonia, unspecified organism (7) Acute on chronic respiratory failure with hypercapnia Code(s): J96.22 - ACUTE AND CHRONIC RESPIRATORY FAILURE WITH HYPERCAPNIA (8) Diabetes Code(s): E11.9 - TYPE 2 DIABETES MELLITUS WITHOUT COMPLICATIONS (9) Lung cancer Code(s): C34.90 - MALIGNANT NEOPLASM OF UNSP PART OF UNSP BRONCHUS OR LUNG Assessment/Plan ABX per ID AC Mode of vent BD TX Hassan-cultures IVF Titrate FiO2 Add PEEP 5 Follow CXR (possible JANY Post-obstructive PNA) VTE prophylaxis Suction as needed ICU monitoring Dr Smith Critical care time spent in reviewing chart, evaluating patient and formulating plan - 36 minutes.
[2018-02-07] MEDS ORDERED: DEXTROSE 5%-WATER - 50 ML IVPB ONE (09:55)
[2018-02-07] MEDS ORDERED: PIPERACILLIN/TAZOBACTAM 3.375 GM VIAL IVPB ONE (09:55)
[2018-02-07] MEDS: ACETAMINOPHEN 325 MG TABLET (FP) PO PRN ×2 (10:00→16:00)
[2018-02-07] MEDS ORDERED: PIPERACILLIN/TAZOB 3.375 GM 3.375 GM in DEXTROSE 5%-WATER - 50 ML IVPB SCH ×2 (10:00→18:00)
--- NOTE | 2018-02-07 10:13 | PN ---
Progress Note (short form) - Note Progress Note: ID consult dictated imp/reccd 82 year old female admitted from [place]- she has chronic resp failure with trach/ vent, lung cancer she was sent with SOB and hypoxia ambubagged and suctioned with improvement +copious secretions, ?ensure elevated WBC cxray with increased left perihilar infiltrate -?postobstructive possible pneumonia pyuria would continue zosyn/vancomycin -one dose tobramycin pending cultures- history of MDR pseudomonas and esbl Kleb in cultures in the past f/u cultures contact isolation wound care for sacral ulcer Problem List - Problems (1) Pneumonia Code(s): J18.9 - PNEUMONIA, UNSPECIFIED ORGANISM Qualifiers: Pneumonia type: due to unspecified organism Laterality: unspecified laterality Lung location: unspecified part of lung Qualified Code(s): J18.9 - Pneumonia, unspecified organism (2) UTI (urinary tract infection) Code(s): N39.0 - URINARY TRACT INFECTION, SITE NOT SPECIFIED Qualifiers: Urinary tract infection type: site unspecified Hematuria presence: without hematuria Qualified Code(s): N39.0 - Urinary tract infection, site not specified (3) Chronic respiratory failure Code(s): J96.10 - CHRONIC RESPIRATORY FAILURE, UNSP W HYPOXIA OR HYPERCAPNIA (4) Lung cancer Code(s): C34.90 - MALIGNANT NEOPLASM OF UNSP PART OF UNSP BRONCHUS OR LUNG (5) Multiple drug resistant organism (MDRO) culture positive Code(s): Z16.24 - RESISTANCE TO MULTIPLE ANTIBIOTICS
[2018-02-07] MEDS ORDERED: TOBRAMYCIN SULFATE IVPB ONE (10:31)
[2018-02-07] MEDS ORDERED: SODIUM CHLORIDE IVPB ONE (10:31)
[2018-02-07] MEDS ORDERED: SODIUM CHLORIDE 1,000 ML IV STA (10:31)
--- NOTE | 2018-02-07 11:40 | CONS ---
DATE OF CONSULTATION: 02/07/2018 REQUESTED BY: Alonzo Fontana MD HISTORY OF PRESENT ILLNESS: This is an 82-year-old woman with chronic respiratory failure. She has a tracheal tube. She is on a ventilator at the senior living as she developed hypoxia and shortness of breath. EMS was called; they Ambu bagged her and suctioned her. She had a large amount of secretions. She was brought to the emergency room where she was noted to have a temperature of 100.9 and some hypotension. IV access was placed. She was given some fluids and vancomycin and Zosyn for possible pneumonia. She had an elevated white count and was noted to have a chest x- ray with left-sided perihilar infiltrates. I am asked to evaluate her. PAST MEDICAL HISTORY: Is notable for a history of COPD, status post tracheostomy, diabetes, DVT, atrial fibrillation, lung cancer, chronic decubitus ulcer and dementia. Parkinson disease and diabetes based on her medication list. PAST SURGICAL HISTORY: Notable for the tracheotomy and she has a G-tube as well. ALLERGIES: She has no known drug allergies. MEDICATIONS: Her medications at the senior living include: 1. Atrovent. 2. ProSource Vitamin D. 3. Insulin. 4. DuoNeb. 5. Carbidopa and Levodopa. 6. Ferrous sulfate. 7. Pepcid. 8. Triamcinolone cream. 9. Senna. 10. Aspirin. FAMILY HISTORY: Not available. SOCIAL HISTORY: She resides at the senior living. REVIEW OF SYSTEMS: Is as per the ER note. She apparently was suctioned what they thought appeared to be Ensure from her tracheostomy and this was the aspiration. PHYSICAL EXAMINATION: Vital Signs: Current temperature is 100.7, pulse of 92, blood pressure 90/56, respiratory rate 14, and she is on FIO2 of 40%. HEENT: She is normocephalic. Eyes are nonicteric. She has a tracheostomy. Neck: Supple. Lungs: Have diminished breath sounds at the bases. Heart: Regular rate and rhythm. Abdomen: Soft. She has a G-tube site that is without any erythema. Extremities: Without edema. She has a stage IV sacral ulcer with some serous drainage. White count is 22.7, hemoglobin 7.9, and platelets of 264. Chemistries: BUN and creatinine of 41 and 1.1. Urinalysis has 3+ leukocytes with 1,996 white cells. ASSESSMENT AND RECOMMENDATIONS: In summary this is a senior living resident with : 1. Sepsis-?lung, ?urine, history MDR organisms 2. Chronic respiratory failure admitted with shortness of breath, hypoxia, copious secretions, and possible pneumonia and would consider aspiration or postobstructive given the diagnosis of lung cancer and the increasing perihilar infiltrate at the site of her malignancy as well. 3. Pyuria. 4. Would continue vancomycin and Zosyn. Prior admission was reviewed. She had a prior admission for which she was treated for pneumonia but had multiple multi- drug resistant organisms that were cultured from her sacral ulcer including Methicillin-resistant Staphylococcus aureus, pseudomonas, and extended-spectrum beta-lactamase. These were not treated on that admission and she did well. I would cover her at this time with 1 dose of tobramycin based on the prior cultures to cover for possible drug resistance and urinary tract infection as well as pneumonia. Would follow up tobramycin level and make adjustment as needed. 5. Lastly, she should remain in strict contact isolation with wound care for her ulcer. over 40 minutes spent in the care of this critically ill ICU patient-reviewing chart, prior cultures, exam, d/w ICU MD DAVID LEE M.D. SCOTT/[id number] MTDHeather
[2018-02-07] MEDS: NOREPINEPHRINE BITARTRATE 4,000 MCG in DEXTROSE 5%-WATER - 496 ML IV SCH ×2 (12:10→23:30)
[2018-02-07] MEDS ORDERED: NOREPINEPHRINE BITARTRATE 4 MG/4 ML ML IV ONE ×2 (12:23→22:52)
[2018-02-07] MEDS ORDERED: SODIUM CHLORIDE 500 ML IV ONE (12:30)
[2018-02-07] MEDS: SODIUM CHLORIDE 1,000 ML IV SCH ×2 (12:49→23:30)
[2018-02-07] MEDS ORDERED: PIPERACILLIN/TAZOBACTAM 4.5 GM VIAL IVPB ONE (17:35)
[2018-02-07] MEDS: PIPERACILLIN/TAZOB 4.5 GM 4.5 GM in DEXTROSE 5%-WATER 100 ML IVPB SCH (17:36)
[2018-02-07] MEDS ORDERED: DEXTROSE 5%-WATER 100 ML IVPB ONE (17:36)
[2018-02-07] MEDS: ARFORMOTEROL TARTRATE 15 MCG/2 ML VIAL NEB SCH (20:55)
[2018-02-08] MEDS ORDERED: PIPERACILLIN/TAZOBACTAM 4.5 GM VIAL IVPB ONE (01:16)
[2018-02-08] MEDS ORDERED: DEXTROSE 5%-WATER 100 ML IVPB ONE (01:17)
[2018-02-08] MEDS: PIPERACILLIN/TAZOB 4.5 GM 4.5 GM in DEXTROSE 5%-WATER 100 ML IVPB SCH (01:21)
[2018-02-08] MEDS: HEPARIN NA (PORCINE) 5,000 UNITS/ML 1ML VIAL SQ SCH ×3 (05:12→21:01)
[2018-02-08] MEDS: SODIUM CHLORIDE 1,000 ML IV SCH (05:13)
[2018-02-08] MEDS: ACETAMINOPHEN 325 MG TABLET (FP) PO PRN (05:48)
[2018-02-08 06:10] LABS: HEMATOCRIT 22.7 % (32.4-45.2); HEMOGLOBIN 7.5 GM/dL (10.7-15.3); MEAN CELL VOLUME 87.8 fl (80-96); MEAN PLT VOLUME 10.5 fl (7.5-11.1); PLATELET COUNT 323 K/MM3 (134-434); RBC 2.59 M/mm3 (3.60-5.2); RDW 18.6 % (11.6-15.6); WHITE BLOOD COUNT 28.8 K/mm3 (4.0-10.0)
[2018-02-08 06:45] LABS: MAGNESIUM 1.6 mg/dL (1.8-2.4)
[2018-02-08 06:47] LABS: CHLORIDE 97 mmol/L (98-107); POTASSIUM 3.9 mmol/L (3.5-5.1); SODIUM 136 mmol/L (136-145)
[2018-02-08 06:48] LABS: PHOSPHOROUS 3.6 mg/dL (2.5-4.9)
[2018-02-08 06:57] LABS: ALBUMIN 1.5 g/dl (3.4-5.0); ALK PHOS 76 U/L (45-117); ANION GAP 9 (8-16); BILIRUBIN,TOTAL 0.5 mg/dL (0.2-1.0); BLOOD UREA NITROGEN 37 mg/dL (7-18); CALCIUM 8.3 mg/dL (8.5-10.1); CO2 30 mmol/L (21-32); CREATININE 1.2 mg/dL (0.55-1.02); GLUCOSE,RANDOM 141 mg/dL (74-106); SGOT/AST 18 U/L (15-37); SGPT/ALT 7 U/L (12-78); TOT PROT 5.6 g/dl (6.4-8.2)
--- NOTE | 2018-02-08 07:36 | PN ---
Progress Note, Physician Chief Complaint: ID ICU follow up for sepsis and now bacteremia with GNB Empiric therapy initially Zosyn dose of Tobramycin (plus Vancomycin) - Current Medication List Current Medications: Active Medications Acetaminophen (Tylenol -) 650 mg PO Q6H PRN PRN Reason: FEVER Last Admin: 02/08/18 05:48 Dose: 650 mg Arformoterol Tartrate (Brovana (Restricted To Pulmonology/Resp) -) 1 amp NEB RBID [facility] Last Admin: 02/07/18 20:55 Dose: 1 amp Heparin Sodium (Porcine) (Heparin -) 5,000 unit SQ TID [facility] Last Admin: 02/08/18 05:12 Dose: 5,000 unit Piperacillin Sod/Tazobactam (Sod 4.5 gm/ Dextrose) 100 mls @ 200 mls/hr IVPB Q8H-IV ALEKSANDAR PRN Reason: Protocol Last Admin: 02/08/18 01:21 Dose: 200 mls/hr Vancomycin HCl 1,000 mg/ (Dextrose) 250 mls @ 166.667 mls/hr IVPB DAILY@1000 ALEKSANDAR PRN Reason: Protocol Sodium Chloride (Normal Saline -) 1,000 mls @ 150 mls/hr IV ASDIR ALEKSANDAR Stop: 02/08/18 12:29 Last Admin: 02/08/18 05:13 Dose: 150 mls/hr Norepinephrine Bitartrate 4, (000 mcg/ Dextrose) 500 mls @ 37.5 mls/hr IV TITR ALEKSANDAR; 5 MCG/MIN PRN Reason: Protocol Last Admin: 02/07/18 23:30 Dose: 12 mcg/min, 90 mls/hr - Objective Vital Signs: Vital Signs Temperature 100.6 F H 02/08/18 05:00 Pulse Rate 75 02/08/18 06:00 Respiratory Rate 14 02/08/18 06:23 Blood Pressure 112/56 02/08/18 06:00 O2 Sat by Pulse Oximetry (%) 96 02/07/18 21:38 HENT: Yes: Other (Trach) Cardiovascular: Yes: S1, S2 Respiratory: Yes: WNL, Regular, CTA Bilaterally Gastrointestinal: Yes: Soft. No: Tenderness Edema: No Integumentary: Yes: Other (Decubitus) Labs: CBC, BMP 02/08/18 05:00 02/08/18 05:00 INR, PTT INR 1.20 (0.82-1.09) H 02/07/18 07:00 Problem List - Problems (1) Gram-negative bacteremia Code(s): R78.81 - BACTEREMIA (2) Decubitus ulcer of sacral region, stage 4 Code(s): L89.154 - PRESSURE ULCER OF SACRAL REGION, STAGE 4 (3) Sepsis Code(s): A41.9 - SEPSIS, UNSPECIFIED ORGANISM Qualifiers: Sepsis type: sepsis due to unspecified organism Qualified Code(s): A41.9 - Sepsis, unspecified organism (4) UTI (urinary tract infection) Code(s): N39.0 - URINARY TRACT INFECTION, SITE NOT SPECIFIED Qualifiers: Urinary tract infection type: site unspecified Hematuria presence: without hematuria Qualified Code(s): N39.0 - Urinary tract infection, site not specified Assessment/Plan Microbiology 02/07/18 02:50 Blood - Peripheral Venous Blood Culture - Preliminary Pending Organism 02/07/18 02:50 Blood - Peripheral Venous Blood Culture - Preliminary Pending Organism Laboratory Tests 02/07/18 02/07/18 02/07/18 03:00 07:00 07:35 WBC Hgb Plt Count INR 1.20 H ABG pH 7.38 ABG pCO2 at Pt Temp 58.9 H Creatinine Total Bilirubin AST ALT Alkaline Phosphatase Ur Leukocyte Esterase 3+ H Urine WBC (Auto) 1996 Urine RBC (Auto) 70 Tobramycin Trough 02/08/18 02/08/18 02/08/18 05:00 05:00 05:00 WBC 28.8 H Hgb 7.5 L Plt Count 323 D INR ABG pH ABG pCO2 at Pt Temp Creatinine 1.2 H Total Bilirubin 0.5 D AST 18 ALT 7 L Alkaline Phosphatase 76 Ur Leukocyte Esterase Urine WBC (Auto) Urine RBC (Auto) Tobramycin Trough 1.6 Assessment Sepsis syndrorme Gram negative bacteremia suspect urinary tract Decubitus ulcer Chronic respiratory failure MDRO by history Plan Add a carbepenem though this may not be sufficient either Daily Tobra dosing Contact isolation Await sensitivities Prognosis poor due to age an multiple comorbid conditions and sepsis Debbie BRYAN
[2018-02-08] MEDS ORDERED: TOBRAMYCIN SULFATE 80 MG in SODIUM CHLORIDE 100 ML IVPB ONE (08:15)
[2018-02-08] MEDS: ARFORMOTEROL TARTRATE 15 MCG/2 ML VIAL NEB SCH (09:05)
[2018-02-08] MEDS ORDERED: PT OWN MED DRAWER 7, Y5N ONE ×2 (09:14→21:00)
[2018-02-08] MEDS ORDERED: VANCOMYCIN 1,000 MG in DEXTROSE 5%-WATER - 250 ML IVPB SCH (10:00)
[2018-02-08] MEDS: MEROPENEM 1 GM in DEXTROSE 5%-WATER 100 ML IVPB SCH ×2 (10:07→21:01)
[2018-02-08] MEDS ORDERED: SODIUM CHLORIDE 1,000 ML IV SCH (11:11)
[2018-02-08] MEDS ORDERED: MAGNESIUM 2GM/50ML STERILE WATER IVPB IVPB ONE (11:12)
[2018-02-08] MEDS: PANTOPRAZOLE SODIUM 40 MG VIAL IVPUSH SCH (11:36)
--- NOTE | 2018-02-08 11:56 | PN ---
Teaching Attending Note Name of Resident: Adam Molina ATTENDING PHYSICIAN STATEMENT I saw and evaluated the patient. I reviewed the resident's note and discussed the case with the resident. I agree with the resident's findings and plan as documented. SUBJECTIVE: Pt seen and examined in the ICU. Vented on volume assist control. High peak pressures. Remains on levophed gtt. Blood cultures growing gram negative bacilli. OBJECTIVE: Last Vital Signs Temp Pulse Resp BP Pulse Ox 99.6 F 87 17 111/54 96 02/08/18 10:00 02/08/18 11:00 02/08/18 11:15 02/08/18 11:00 02/08/18 09:00 Intake & Output 02/05/18 02/06/18 02/07/18 02/08/18 23:59 23:59 23:59 23:59 Intake Total 3627.5 3530 Output Total 325 200 Balance 3302.5 3330 Weight 72.5 kg 76.912 kg Gen: vented, poorly responsive Heart: RRR Lung: scattered rhonchi Abd: soft, nontender Ext: + edema CBC, BMP 02/08/18 05:00 02/08/18 05:00 Active Medications Acetaminophen (Tylenol -) 650 mg PO Q6H PRN PRN Reason: FEVER Last Admin: 02/08/18 05:48 Dose: 650 mg Albuterol/Ipratropium (Duoneb -) 1 amp NEB RQID ALEKSANDAR Heparin Sodium (Porcine) (Heparin -) 5,000 unit SQ TID ALEKSANDAR Last Admin: 02/08/18 05:12 Dose: 5,000 unit Norepinephrine Bitartrate 4, (000 mcg/ Dextrose) 500 mls @ 37.5 mls/hr IV TITR ALEKSANDAR; 5 MCG/MIN PRN Reason: Protocol Last Titration: 02/08/18 09:00 Dose: 10 mcg/min, 75 mls/hr Meropenem 1 gm/ Dextrose 100 mls @ 200 mls/hr IVPB BID ALEKSANDAR Last Admin: 02/08/18 10:07 Dose: 200 mls/hr Sodium Chloride (Normal Saline -) 1,000 mls @ 100 mls/hr IV ASDIR ALEKSANDAR Stop: 02/08/18 12:29 Last Admin: 02/08/18 11:40 Dose: 100 mls/hr Pantoprazole Sodium (Protonix Iv) 40 mg IVPUSH DAILY [facility] Last Admin: 02/08/18 11:36 Dose: 40 mg ASSESSMENT AND PLAN: UTI Pneumonia Septic Shock Acute Kidney Injury COPD Atrial Fibrillation DM Lung Ca Sacral Decubitus Ulcer Dementia - continue antibiotics - f/u cultures - IVF - taper levophed gtt to maintain MAP >65 - monitor urine output, creatinine - inhaled bronchodilators - adjusted vent settings - if peak pressures remain high, will consider short course of steroids - enteral feeds in AM - DVT/GI prophylaxis - continue ICU monitoring critical care time spent in reviewing chart, evaluating patient and formulating plan 35 min
[2018-02-08] MEDS: ALBUTEROL SO4 2.5/IPRATROPIUM 0.5 INH SOL 3 ML VIAL.NEB. NEB SCH ×3 (12:03→21:00)
--- NOTE | 2018-02-08 12:05 | PN ---
Physical Exam: SUBJECTIVE: Patient seen and examined. On levophed 8mcg/min Blood cultures growing gram neg bacilli Volume assist control ventilation. OBJECTIVE: Vital Signs Period Temp Pulse Resp BP Sys/Espinal Pulse Ox Last 24 Hr 98.3 F-100.7 F 64-95 13-18 59-131/36-67 96-96 GENERAL: awake, nonverbal, lethargic EYES: sclera anicteric, conjunctiva clear. No ptosis. ENT: oropharynx clear without exudates, moist mucous membranes. LUNGS: scattered rhonchi, trach in place, central and secured. vent settings: Rate 14, TV 500, O2 50%, Peep 0 HEART: Regular rate and rhythm, no murmurs appreciated ABDOMEN:no grimacing on palpation, peg tube in place EXTREMITIES: anasarca, Left femoral line Stage 4 decubitus ulcer Laboratory Results - last 24 hr 02/07/18 02/07/18 02/08/18 12:20 16:54 05:00 WBC RBC Hgb Hct MCV MCH MCHC RDW Plt Count MPV Sodium Potassium Chloride Carbon Dioxide Anion Gap BUN Creatinine Creat Clearance w eGFR POC Glucometer 145.90403 142.94092 Random Glucose Calcium Phosphorus 3.6 Magnesium 1.6 L Total Bilirubin AST ALT Alkaline Phosphatase Total Protein Albumin Tobramycin Trough 02/08/18 02/08/18 02/08/18 05:00 05:00 05:00 WBC 28.8 H RBC 2.59 L Hgb 7.5 L Hct 22.7 L MCV 87.8 MCH 29.0 MCHC 33.0 RDW 18.6 H Plt Count 323 D MPV 10.5 D Sodium 136 Potassium 3.9 Chloride 97 L Carbon Dioxide 30 Anion Gap 9 BUN 37 H Creatinine 1.2 H Creat Clearance w eGFR 43.12 POC Glucometer Random Glucose 141 H Calcium 8.3 L Phosphorus Magnesium Total Bilirubin 0.5 D AST 18 ALT 7 L Alkaline Phosphatase 76 Total Protein 5.6 L Albumin 1.5 L Tobramycin Trough 1.6 02/08/18 05:10 WBC RBC Hgb Hct MCV MCH MCHC RDW Plt Count MPV Sodium Potassium Chloride Carbon Dioxide Anion Gap BUN Creatinine Creat Clearance w eGFR POC Glucometer [phone] Random Glucose Calcium Phosphorus Magnesium Total Bilirubin AST ALT Alkaline Phosphatase Total Protein Albumin Tobramycin Trough Active Medications Generic Name Dose Route Start Last Admin Trade Name Freq PRN Reason Stop Dose Admin Acetaminophen 650 mg 02/07/18 10:31 02/08/18 05:48 Tylenol - PO 650 mg Q6H PRN Administration FEVER Albuterol/Ipratropium 1 amp 02/08/18 12:00 02/08/18 12:03 Duoneb - NEB 1 amp RQID ALEKSANDAR Administration Heparin Sodium (Porcine) 5,000 unit 02/07/18 06:00 02/08/18 05:12 Heparin - SQ 5,000 unit TID ALEKSANDAR Administration Norepinephrine Bitartrate 4, 500 mls @ 37.5 mls/hr 02/07/18 12:30 02/08/18 09 :00 000 mcg/ Dextrose IV 10 mcg/min TITR ALEKSANDAR 75 mls/hr Protocol Titration 5 MCG/MIN Meropenem 1 gm/ Dextrose 100 mls @ 200 mls/hr 02/08/18 10:00 02/08/18 10:07 IVPB 200 mls/hr BID ALEKSANDAR Administration Sodium Chloride 1,000 mls @ 100 mls/hr 02/08/18 11:11 02/08/18 11:40 Normal Saline - IV 02/08/18 12:29 100 mls/hr ASDIR ALEKSANDAR Administration Pantoprazole Sodium 40 mg 02/08/18 11:15 02/08/18 11:36 Protonix Iv IVPUSH 40 mg DAILY ALEKSANDAR Administration ASSESSMENT/PLAN: 82 F pmhx o Chronic respiratory failure via tracheostomy, COPD, DVT, A-fib, PEG tube, known lung CA (dominant mass in the JANY with bilateral nodules likely mets), DM, sacral decubitus ulcer, and dementia was admitted due to respiratory distress and hypoxia. #Neuro -Demented -patient likely at baseline #CV -currently hypotensive: Levophed 8mcg/min -taper levophed gtt to maintain MAP >65 -Paroxysmal A-fib: no on AC per record -Monitor BP #Pulmonary -Pneumonia possibly post-obstructive, aspiration -Known L Lung mass -COPD -Duonebs QID, Arformoterol held -IV abx (Day 2): Meropenem, Topramycin. Initial emperic therapy vanc/zosyn -FU Id reccs -Adjusted vent settings, if peak pressures remain high, will consider short course of steroids #GI -Start tube feeding tomorrow -PPx Protonix 40mg IV daily # -Sepsis secondary to UTI -Cont. IV abx as stated above -Bcx growing Gram - bacteria -yeast like organism in Ucx. -hx of MDRO, ESBL -Contact precautions -FU urine cultures -IVF -ADA -monitor urine output, creatinine -avoid nephrotoxins -Follow BMPs #Endocrine -BGM -ISS #Intugementary -Sacral Decub Stage 4 -no signs of infection #FEN -NS @ 100ml/ hour -Mag Repleted -NPO, Begin tube feeds tomorrow #PPx -hep sq -protonix Visit type - Emergency Visit Emergency Visit: Yes ED Registration Date: 02/07/18 Care time: The patient presented to the Emergency Department on the above date and was hospitalized for further evaluation of their emergent condition. - New Patient This patient is new to me today: Yes Date on this admission: 02/08/18 - Critical Care Critical Care patient: Yes Total Critical Care Time (in minutes): 40 Critical Care Statement: The care of this patient involved high complexity decision making to prevent further life threatening deterioration of the patient 's condition and/or to evaluate & treat vital organ system(s) failure or risk of failure.
[2018-02-08] MEDS: NOREPINEPHRINE BITARTRATE 4,000 MCG in DEXTROSE 5%-WATER - 496 ML IV SCH ×2 (13:00→21:02)
[2018-02-08] MEDS: INSULIN SLIDING SCALE (NOVOLOG) 1 VIAL SQ SCH ×2 (16:29→21:04)
--- NOTE | 2018-02-08 18:24 | PN ---
Progress Note (short form) - Note Progress Note: Pt seen/ examined in icu Cart reviewed Remains on vent support On pressors. on broad spectrum abx +ve cultures Vital Signs Temp 97.6 F 02/08/18 18:00 Pulse 69 02/08/18 18:00 Resp 10 L 02/08/18 18:00 BP 92/50 02/08/18 18:00 Pulse Ox 97 02/08/18 11:45 Intake & Output 02/07/18 02/08/18 02/08/18 23:59 11:59 23:59 Intake Total 3517.5 3530 1560 Output Total 325 200 250 Balance 3192.5 3330 1310 Weight 169 lb 9 oz Intake: IV 3217.5 3330 1510 Levophed - 4,000 Mcg In 517.5 1080 810 D5w - 496 ml @ 5 MCG/MIN 37.5 mls/hr IV TITR ALEKSANDAR Rx#:[id number] Normal Saline - 1,000 ml 300 @ 100 mls/hr IV ASDIR ALEKSANDAR Rx#:[id number] Normal Saline - 1,000 ml 700 @ 100 mls/hr IV ASDIR ALEKSANDAR Rx#:[id number] Normal Saline - 1,000 ml 1000 @ 1000 mls/hr IV ASDIR STA Rx#:[id number] Normal Saline - 1,000 ml 900 2250 @ 150 mls/hr IV ASDIR ALEKSANDAR Rx#:[id number] Normal Saline - 500 ml @ 500 500 mls/hr IV ONCE ONE Rx #:[id number] IVPB 200 200 50 Tube Irrigant 100 Output: Urine 325 200 250 Cotter 325 200 250 Other: Voiding Method Indwelling Catheter Indwelling Catheter Weight Measurement Method Built in [facility] Active Medications Acetaminophen (Tylenol -) 650 mg PO Q6H PRN PRN Reason: FEVER Last Admin: 02/08/18 05:48 Dose: 650 mg Albuterol/Ipratropium (Duoneb -) 1 amp NEB RQID [facility]END[facility] TO [facility] Last Admin: 02/08/18 16:15 Dose: 1 amp Chlorhexidine Gluconate (Hibiclens For Decolonization -) 1 applic TP HS [facility]END[facility] TO [facility] Heparin Sodium (Porcine) (Heparin -) 5,000 unit SQ TID [facility] Last Admin: 02/08/18 13:22 Dose: 5,000 unit Norepinephrine Bitartrate 4, (000 mcg/ Dextrose) 500 mls @ 37.5 mls/hr IV TITR ALEKSANDAR; 5 MCG/MIN PRN Reason: Protocol Last Admin: 02/08/18 13:00 Dose: 8 mcg/min, 60 mls/hr Meropenem 1 gm/ Dextrose 100 mls @ 200 mls/hr IVPB BID [facility] Last Admin: 02/08/18 10:07 Dose: 200 mls/hr Insulin Aspart (Novolog Vial Sliding Scale -) 1 vial SQ ACHS ALEKSANDAR PRN Reason: Protocol Last Admin: 02/08/18 16:29 Dose: Not Given Pantoprazole Sodium (Protonix Iv) 40 mg IVPUSH DAILY [facility] Last Admin: 02/08/18 11:36 Dose: 40 mg CBC, BMP 02/08/18 05:00 02/08/18 05:00 Microbiology 02/07/18 02:50 Blood Culture - Preliminary Blood - Peripheral Venous Lactose Fermenting Neg Bacilli Gram Positive Cocci 02/07/18 13:20 Legionella Antigen - Final Urine - Urine Cotter Streptococcus pneumoniae Antigen (M - Final 02/07/18 03:00 Urine Culture - Final Urine - Urine - Catheterized Yeast Like Organism 02/07/18 02:50 Blood Culture - Preliminary Blood - Peripheral Venous Non Lactose Fermenting Gnb PHysical Gen: Poorly responsive on vent ==s/p trach Heart: RRR Lung: Bilateral Rhonchi Abd: soft, nontender. Ext: + edema ASSESSMENT AND PLAN: Respiratory Failure Pneumonia Septic Shock Acute Renal Failure COPD Atrial Fibrillation. DM Lung Ca Sacral Ulcer--Stage 4 Uti Meds reviewed Continue present care. Abx Monitor lytes Overall Condition Poor continue ICU monitoring Will follow cc time 35 min Will consult wound care also Discussed with nursing staff also Problem List - Problems (1) Atrial fibrillation Code(s): I48.91 - UNSPECIFIED ATRIAL FIBRILLATION Qualifiers: Atrial fibrillation type: paroxysmal Qualified Code(s): I48.0 - Paroxysmal atrial fibrillation (2) CHF (congestive heart failure) Code(s): I50.9 - HEART FAILURE, UNSPECIFIED Qualifiers: Heart failure type: unspecified Heart failure chronicity: unspecified Qualified Code(s): I50.9 - Heart failure, unspecified (3) Decubitus ulcer of sacral region, stage 4 Code(s): L89.154 - PRESSURE ULCER OF SACRAL REGION, STAGE 4
[2018-02-08] MEDS ORDERED: NOREPINEPHRINE BITARTRATE 4 MG/4 ML ML IV ONE (20:45)
[2018-02-08] MEDS: CHLORHEXIDINE GLUCONATE 4% CLEANSER FOR DECOLONIZATION TP SCH ×2 (20:58→23:43)
[2018-02-09] MEDS: NOREPINEPHRINE BITARTRATE 4,000 MCG in DEXTROSE 5%-WATER - 496 ML IV SCH ×5 (03:00→21:58)
[2018-02-09] MEDS: HEPARIN NA (PORCINE) 5,000 UNITS/ML 1ML VIAL SQ SCH ×3 (05:07→21:57)
[2018-02-09 06:18] LABS: HEMATOCRIT 23.2 % (32.4-45.2); HEMOGLOBIN 7.3 GM/dL (10.7-15.3); MCH 28.3 pg (25.7-33.7); MCHC 31.6 g/dl (32.0-36.0); MEAN CELL VOLUME 89.6 fl (80-96); MEAN PLT VOLUME 10.1 fl (7.5-11.1); PLATELET COUNT 286 K/MM3 (134-434); RBC 2.58 M/mm3 (3.60-5.2); RDW 18.4 % (11.6-15.6)
[2018-02-09] MEDS: INSULIN SLIDING SCALE (NOVOLOG) 1 VIAL SQ SCH ×4 (06:20→22:17)
[2018-02-09] MEDS ORDERED: PT OWN MED DRAWER 7, Y5N ONE ×5 (06:49→21:56)
[2018-02-09 06:57] LABS: ALBUMIN 1.5 g/dl (3.4-5.0); ANION GAP 8 (8-16); BLOOD UREA NITROGEN 33 mg/dL (7-18); CHLORIDE 99 mmol/L (98-107); CO2 29 mmol/L (21-32); GLUCOSE,RANDOM 126 mg/dL (74-106); POTASSIUM 3.9 mmol/L (3.5-5.1); SODIUM 136 mmol/L (136-145)
[2018-02-09 07:00] LABS: ALK PHOS 77 U/L (45-117); BILIRUBIN,TOTAL 0.3 mg/dL (0.2-1.0); CREATININE 1.1 mg/dL (0.55-1.02); PHOSPHOROUS 4.4 mg/dL (2.5-4.9); SGOT/AST 14 U/L (15-37); SGPT/ALT < 6 U/L (12-78); TOT PROT 5.5 g/dl (6.4-8.2)
[2018-02-09] MEDS: ALBUTEROL SO4 2.5/IPRATROPIUM 0.5 INH SOL 3 ML VIAL.NEB. NEB SCH ×4 (07:25→20:55)
[2018-02-09] MEDS: MEROPENEM 1 GM in DEXTROSE 5%-WATER 100 ML IVPB SCH ×2 (09:10→21:57)
--- NOTE | 2018-02-09 09:14 | PN ---
Progress Note (short form) - Note Progress Note: pt seen/ examined in icu overall condition same remains dependent on pressor support afebrile Vital Signs Temp 99.1 F 02/09/18 09:00 Pulse 78 02/09/18 09:00 Resp 10 L 02/09/18 09:00 BP 106/52 02/09/18 09:00 Pulse Ox 99 02/09/18 08:00 Intake & Output 02/08/18 02/08/18 02/09/18 11:59 23:59 11:59 Intake Total 3530 1560 904 Output Total 200 775 550 Balance 3330 785 354 Weight 169 lb 9 oz 170 lb 4 oz Intake: IV 3330 1510 804 Levophed - 4,000 Mcg In 1080 810 744 D5w - 496 ml @ 5 MCG/MIN 37.5 mls/hr IV TITR ALEKSANDAR Rx#:[id number] Normal Saline - 1,000 ml 700 60 @ 100 mls/hr IV ASDIR ALEKSANDAR Rx#:[id number] Normal Saline - 1,000 ml 2250 @ 150 mls/hr IV ASDIR ALEKSANDAR Rx#:[id number] IVPB 200 50 100 Output: Urine 200 775 550 Cotter 200 775 550 Other: Voiding Method Indwelling Catheter Indwelling Catheter Indwelling Catheter Weight Measurement Method Built in [facility] Built in [facility] Active Medications Acetaminophen (Tylenol -) 650 mg PO Q6H PRN PRN Reason: FEVER Last Admin: 02/08/18 05:48 Dose: 650 mg Albuterol/Ipratropium (Duoneb -) 1 amp NEB RQID [facility] Last Admin: 02/09/18 07:25 Dose: 1 amp Chlorhexidine Gluconate (Hibiclens For Decolonization -) 1 applic TP HS [facility] Last Admin: 02/08/18 23:43 Dose: Not Given Heparin Sodium (Porcine) (Heparin -) 5,000 unit SQ TID ALEKSANDAR Last Admin: 02/09/18 05:07 Dose: 5,000 unit Norepinephrine Bitartrate 4, (000 mcg/ Dextrose) 500 mls @ 37.5 mls/hr IV TITR ALEKSANDAR; 5 MCG/MIN PRN Reason: Protocol Last Titration: 02/09/18 08:19 Dose: 12 mcg/min, 90 mls/hr Meropenem 1 gm/ Dextrose 100 mls @ 200 mls/hr IVPB BID [facility] Last Admin: 02/09/18 09:10 Dose: 200 mls/hr Insulin Aspart (Novolog Vial Sliding Scale -) 1 vial SQ ACHS [facility] PRN Reason: Protocol Last Admin: 02/09/18 06:20 Dose: Not Given Pantoprazole Sodium (Protonix Iv) 40 mg IVPUSH DAILY [facility] Last Admin: 02/08/18 11:36 Dose: 40 mg CBC, BMP 02/09/18 05:15 02/09/18 05:15 Microbiology 02/07/18 02:50 Blood Culture - Preliminary Blood - Peripheral Venous Lactose Fermenting Neg Bacilli Gram Positive Cocci 02/07/18 13:20 Legionella Antigen - Final Urine - Urine Cotter Streptococcus pneumoniae Antigen (M - Final 02/07/18 03:00 Urine Culture - Final Urine - Urine - Catheterized Yeast Like Organism 02/07/18 02:50 Blood Culture - Preliminary Blood - Peripheral Venous Non Lactose Fermenting Gnb Physical Gen: Poorly responsive on vent ==s/p trach Heart: RRR Lung: Bilateral Rhonchi Abd: soft, non tender. peg + Ext: + edema ASSESSMENT AND PLAN: Respiratory Failure Lung ca Pneumonia Septic Shock Acute Renal Failure COPD Paroxsysmal Atrial Fibrillation. DM Lung Ca Sacral Ulcer--Stage 4 Uti Meds reviewed Continue present care. Abx Monitor lytes Overall Condition Poor continue ICU monitoring Sacral decubitus care start on feeding Will follow cc time 30 min Discussed with nursing staff Problem List - Problems (1) Atrial fibrillation Code(s): I48.91 - UNSPECIFIED ATRIAL FIBRILLATION Qualifiers: Atrial fibrillation type: paroxysmal Qualified Code(s): I48.0 - Paroxysmal atrial fibrillation (2) CHF (congestive heart failure) Code(s): I50.9 - HEART FAILURE, UNSPECIFIED Qualifiers: Heart failure type: unspecified Heart failure chronicity: unspecified Qualified Code(s): I50.9 - Heart failure, unspecified (3) Decubitus ulcer of sacral region, stage 4 Code(s): L89.154 - PRESSURE ULCER OF SACRAL REGION, STAGE 4
--- NOTE | 2018-02-09 09:31 | CONSULT ---
- Consultation REQUESTING PROVIDER: CONSULT REQUEST: We have been asked to surgically evaluate this patient for decubitus ulcer. PCP:Alonzo Fontana HISTORY OF PRESENT ILLNESS: Pt is an 82 y/o F [facility] resident with PMH COPD s/p trach, DM, DVT, AF, Lung CA, Stage IV decub, Dementia, nonverbal who reportedly aspirated and is now admitted for aspiration pneumonia and sepsis. PMHx: COPD s/p trach, DM, DVT, AF, Lung CA, Stage IV decub, Dementia, nonverbal PSHx: Home Medications Medication Instructions Recorded Acetaminophen Oral Solution 160 mg GT Q6H PRN 11/09/17 [Tylenol 160mg/5mL Oral Solution -] Albuterol 0.083% Nebulizer Hue 1 neb NEB Q4H PRN 11/09/17 [Ventolin 0.083% Nebulizer Soln -] Aspirin [ASA -] 81 mg GT DAILY 11/09/17 Ipratropium [place] [Atrovent Hfa] 4 puff IH Q4H 11/09/17 Sennosides [Senna] 9.7 ml GT HS 11/09/17 Albuterol 2.5/Ipratropium 0.5 1 amp NEB Q6H PRN #60 amp 11/26/17 [Duoneb -] Amino Acids/Protein Hydrolys 30 ml GT DAILY packet 11/26/17 [Prosource No Carb Liquid Pkt] Bacitracin - [Bacitracin Topical 1 applic TP BID tube 11/26/17 Ointment -] Nystatin/Triamcinolone Top Oin 1 applic TP BID applic 11/26/17 [Mycolog II -] Ascorbic Acid [Vitamin C -] 500 mg GT BID 02/07/18 Budesonide/Formeterol Fumarate 2 inh PO BID 02/07/18 [SYMBICORT 160/4.5mcg -] Carbidopa/Levodopa 1 each GT Q8H 02/07/18 [Carbidopa-Levodopa 25-100 Tab] Docusate Liquid [Colace Liquid -] 100 mg GT TID 02/07/18 Ergocalciferol (Vitamin D2) 6.25 ml GT WEEKLY 02/07/18 [Ergocalciferol] Famotidine [Pepcid -] 20 mg GT DAILY 02/07/18 Ferrous Sulfate *Liquid* [Feosol] 6.8 ml PO DAILY 02/07/18 Insulin Glargine,Hum.rec.anlog 5 unit SQ HS 02/07/18 [Lantus Solostar] Zinc Oxide 20% Topical Oint 454 gm NR ASDIR 02/07/18 Allergies Allergy/AdvReac Type Severity Reaction Status Date / Time No Known Allergies Allergy Verified 02/07/18 06:49 REVIEW OF SYSTEMS: unable to obtain secondary to patient status PHYSICAL EXAM: GENERAL: resting comfortably HEAD: NC/AT LUNGS No accessory muscle use on vent with trach UPPER EXTREMITIES: warm, well-perfused LOWER EXTREMITIES: warm, well-perfused. with diffuse edema throughout Sacrum: 7x7cm decubitus stage 4 ulcer (no exposed bone) with beefy red base with no evidence of sinus/tracking and clean, well circumscribed boarders. Vital Signs Period Temp Pulse Resp BP Sys/Espinal Pulse Ox Last 24 Hr 98.1 F-99.2 F 69-101 10-30 89-127/43-87 93-99 CBC, BMP 02/10/18 05:55 02/10/18 05:55 Problem List - Problems (1) Decubitus ulcer of sacral region, stage 4 Assessment/Plan: Stage 4 decubitus ulcer currently stable with no indication for surgical debridement. Will treat with conservative management. 1) Santyl and Allevyn to sarcum daily 2) Off load area, q2 positioning 3) keep area clean and dry 4) reconsult PRN Thank you for the opportunity to participate in this patients care. Evaluation and plan discussed with Dr Pa Code(s): L89.154 - PRESSURE ULCER OF SACRAL REGION, STAGE 4
[2018-02-09] MEDS: PANTOPRAZOLE SODIUM 40 MG VIAL IVPUSH SCH (10:00)
--- NOTE | 2018-02-09 10:19 | PN ---
Progress Note (short form) - Note Progress Note: on pressors GNR bacteremia meropenem, tobramycin by levels history of MDRO Vital Signs Period Temp Pulse Resp BP Sys/Espinal Pulse Ox Last 24 Hr 97.6 F-99.5 F 69-97 10-24 84-113/41-56 90-99 cor-rrr lungs bilateral rhonchi abd sot,nt +GT sacral ulcer (clean) ext trace edema right femoral catheter CBC, BMP 02/09/18 05:15 02/09/18 05:15 Microbiology 02/07/18 02:50 Blood - Peripheral Venous Blood Culture - Preliminary Klebsiella Pneumoniae - Esbl Staphylococcus Coagulase Neg 02/07/18 02:50 Blood - Peripheral Venous Blood Culture - Final Proteus Mirabilis 02/07/18 13:20 Urine - Urine Garber Legionella Antigen - Final 02/07/18 13:20 Urine - Urine Garber Streptococcus pneumoniae Antigen (M - Final 02/07/18 03:00 Urine - Urine - Catheterized Urine Culture - Final Yeast Like Organism cxray bibasilar effusions/infiltrates, left hilar mass imp/reccd sepsis-polymicrobial - 82 year old female admitted from [place]- she has chronic resp failure with trach/ vent, lung cancer polymicrobial bacteremia- ?source- urine-apparently had garber at [facility], ?pneumonia - aspiration history of MDRO meropenem/tobramycin by levels- stat level ordered f/u cultures change femoral line if possible ct scan abd/pelvis when stable for imaging strict isolation -contact MDRO Problem List - Problems (1) Pneumonia Code(s): J18.9 - PNEUMONIA, UNSPECIFIED ORGANISM Qualifiers: Pneumonia type: due to unspecified organism Laterality: unspecified laterality Lung location: unspecified part of lung Qualified Code(s): J18.9 - Pneumonia, unspecified organism (2) UTI (urinary tract infection) Code(s): N39.0 - URINARY TRACT INFECTION, SITE NOT SPECIFIED Qualifiers: Urinary tract infection type: site unspecified Hematuria presence: without hematuria Qualified Code(s): N39.0 - Urinary tract infection, site not specified (3) Chronic respiratory failure Code(s): J96.10 - CHRONIC RESPIRATORY FAILURE, UNSP W HYPOXIA OR HYPERCAPNIA (4) Lung cancer Code(s): C34.90 - MALIGNANT NEOPLASM OF UNSP PART OF UNSP BRONCHUS OR LUNG (5) Multiple drug resistant organism (MDRO) culture positive Code(s): Z16.24 - RESISTANCE TO MULTIPLE ANTIBIOTICS
--- NOTE | 2018-02-09 12:18 | PN ---
Teaching Attending Note Name of Resident: Adam Molina ATTENDING PHYSICIAN STATEMENT I saw and evaluated the patient. I reviewed the resident's note and discussed the case with the resident. I agree with the resident's findings and plan as documented. SUBJECTIVE: Pt seen and examined in the ICU. Remains on levophed gtt. Vented on volume assist control with 50% FiO2. Blood cultures growing proteus and ESBL Klebsiella. OBJECTIVE: Last Vital Signs Temp Pulse Resp BP Pulse Ox 98.5 F 69 11 L 101/50 99 02/09/18 12:00 02/09/18 12:00 02/09/18 12:00 02/09/18 12:00 02/09/18 08:00 Intake & Output 02/06/18 02/07/18 02/08/18 02/09/18 23:59 23:59 23:59 23:59 Intake Total 3627.5 5090 904 Output Total 325 975 550 Balance 3302.5 4115 354 Weight 72.5 kg 76.912 kg 77.224 kg Gen: vented, poorly responsive Heart: RRR Lung: scattered rhonchi Abd: soft, nontender Ext: + edema CBC, BMP 02/09/18 05:15 02/09/18 05:15 Active Medications Acetaminophen (Tylenol -) 650 mg PO Q6H PRN PRN Reason: FEVER Last Admin: 02/08/18 05:48 Dose: 650 mg Albuterol/Ipratropium (Duoneb -) 1 amp NEB RQID [facility] Last Admin: 02/09/18 11:20 Dose: 1 amp Chlorhexidine Gluconate (Hibiclens For Decolonization -) 1 applic TP HS [facility] Last Admin: 02/08/18 23:43 Dose: Not Given Collagenase (Santyl -) 1 applic TP DAILY ALEKSANDAR Heparin Sodium (Porcine) (Heparin -) 5,000 unit SQ TID ALEKSANDAR Last Admin: 02/09/18 05:07 Dose: 5,000 unit Norepinephrine Bitartrate 4, (000 mcg/ Dextrose) 500 mls @ 37.5 mls/hr IV TITR ALEKSANDAR; 5 MCG/MIN PRN Reason: Protocol Last Admin: 02/09/18 10:00 Dose: 12 mcg/min, 90 mls/hr Meropenem 1 gm/ Dextrose 100 mls @ 200 mls/hr IVPB BID ALEKSANDAR Last Admin: 02/09/18 09:10 Dose: 200 mls/hr Insulin Aspart (Novolog Vial Sliding Scale -) 1 vial SQ ACHS ALEKSANDAR PRN Reason: Protocol Last Admin: 02/09/18 11:22 Dose: Not Given Pantoprazole Sodium (Protonix Iv) 40 mg IVPUSH DAILY [facility] Last Admin: 02/09/18 10:00 Dose: 40 mg ASSESSMENT AND PLAN: UTI Pneumonia Septic Shock Acute Kidney Injury COPD Atrial Fibrillation DM Lung Ca Sacral Decubitus Ulcer Dementia - continue antibiotics - f/u cultures - taper levophed gtt to maintain MAP >65 - transfuse PRBC - monitor H/H - will need to change femoral catheter - monitor urine output, creatinine - inhaled bronchodilators - if peak pressures remain high, will consider short course of steroids - enteral feeds - DVT/GI prophylaxis - continue ICU monitoring critical care time spent in reviewing chart, evaluating patient and formulating plan 35 min
[2018-02-09] MEDS ORDERED: MIDAZOLAM HCL 2 MG/2 ML SINGLE DOSE VIAL ONE (12:52)
[2018-02-09] MEDS ORDERED: MIDAZOLAM HCL 10 MG/10 ML VIAL IVPUSH ONE (13:00)
[2018-02-09 13:13] VITALS: BMI 33.2
[2018-02-09] MEDS ORDERED: HEMOQUE TEST 1 EACH EACH ONE (13:13)
--- NOTE | 2018-02-09 13:49 | PROC ---
<Nhung Dumont - Last Filed: 02/09/18 13:48> Central Line Insertion Indication: CVP Monitoring, Poor Venous Access, Sepsis, Vasopressor Central Line: Triple Lumen Catheter Anesthesia: 1% Lidocaine Sterile Technique: Yes Ultrasound Guided Assistance: Yes Position: Left Subclavian Post Insertion: Yes: Bilateral Breath Sounds, Chest X-Ray Ordered Sterile Dressing Applied: Yes <Alexi Broussard MD - Last Filed: 02/09/18 14:02> Procedure Note Procedure: I supervised and was present during the entire procedure. Alexi Broussard MD
[2018-02-09] MEDS ORDERED: TOBRAMYCIN SULFATE 80 MG in SODIUM CHLORIDE 100 ML IVPB ONE (13:51)
[2018-02-09] MEDS: COLLAGENASE CLOSTRIDIUM HIST. 30 GRAMS TUBE TP SCH (13:59)
--- NOTE | 2018-02-09 16:39 | PN ---
Physical Exam: SUBJECTIVE: Patient seen and examined. More lethargic today. Nonverbal. Tried to titrate levophed overnight but patient BP decreased 80's/40s. Levophed increased from 8 to 12. OBJECTIVE: Vital Signs Period Temp Pulse Resp BP Sys/Espinal Pulse Ox Last 24 Hr 97.6 F-99.1 F 69-94 10-21 84-113/41-79 94-99 GENERAL: lethargic, nonverbal, arousable to verbal stimuli EYES: sclera anicteric, conjunctiva clear. No ptosis. ENT: oropharynx clear without exudates, moist mucous membranes. LUNGS: scattered rhonchi, trach in place, central and secured. vent settings: Rate 10, TV 400, O2 50%, Peep 5 HEART: Regular rate and rhythm, no murmurs appreciated ABDOMEN:no grimacing on palpation, peg tube in place EXTREMITIES: anasarca, Left femoral line Stage 4 decubitus ulcer Laboratory Results - last 24 hr 02/08/18 02/08/18 02/09/18 16:22 20:57 05:14 WBC RBC Hgb Hct MCV MCH MCHC RDW Plt Count MPV Sodium Potassium Chloride Carbon Dioxide Anion Gap BUN Creatinine Creat Clearance w eGFR POC Glucometer 113.81457 118.52326 160.04624 Random Glucose Calcium Phosphorus Magnesium Total Bilirubin AST ALT Alkaline Phosphatase Total Protein Albumin Tobramycin Trough Blood Type Antibody Screen Crossmatch 02/09/18 02/09/18 02/09/18 05:15 05:15 11:15 WBC 16.0 H D RBC 2.58 L Hgb 7.3 L Hct 23.2 L MCV 89.6 MCH 28.3 MCHC 31.6 L RDW 18.4 H Plt Count 286 MPV 10.1 Sodium 136 Potassium 3.9 Chloride 99 Carbon Dioxide 29 Anion Gap 8 BUN 33 H Creatinine 1.1 H Creat Clearance w eGFR 47.67 POC Glucometer Random Glucose 126 H Calcium 8.0 L Phosphorus 4.4 Magnesium 2.0 Total Bilirubin 0.3 D AST 14 L ALT < 6 L Alkaline Phosphatase 77 Total Protein 5.5 L Albumin 1.5 L Tobramycin Trough 1.0 Blood Type Antibody Screen Crossmatch 02/09/18 02/09/18 11:17 12:35 WBC RBC Hgb Hct MCV MCH MCHC RDW Plt Count MPV Sodium Potassium Chloride Carbon Dioxide Anion Gap BUN Creatinine Creat Clearance w eGFR POC Glucometer 189.79942 Random Glucose Calcium Phosphorus Magnesium Total Bilirubin AST ALT Alkaline Phosphatase Total Protein Albumin Tobramycin Trough Blood Type A POSITIVE Antibody Screen Negative Crossmatch See Detail Active Medications Generic Name Dose Route Start Last Admin Trade Name Freq PRN Reason Stop Dose Admin Acetaminophen 650 mg 02/07/18 10:31 02/08/18 05:48 Tylenol - PO 650 mg Q6H PRN Administration FEVER Albuterol/Ipratropium 1 amp 02/08/18 12:00 02/09/18 11:20 Duoneb - NEB 1 amp RQID ALEKSANDAR Administration Chlorhexidine Gluconate 1 applic 02/08/18 22:00 02/08/18 23:43 Hibiclens For Decolonization - TP Not Given HS ALEKSANDAR Collagenase 1 applic 02/09/18 10:00 02/09/18 13:59 Santyl - TP 1 applic DAILY ALEKSANDAR Administration Heparin Sodium (Porcine) 5,000 unit 02/07/18 06:00 02/09/18 14:00 Heparin - SQ 5,000 unit TID ALEKSANDAR Administration Norepinephrine Bitartrate 4, 500 mls @ 37.5 mls/hr 02/07/18 12:30 02/09/18 15 :18 000 mcg/ Dextrose IV 12 mcg/min TITR ALEKSANDAR 90 mls/hr Protocol Administration 5 MCG/MIN Meropenem 1 gm/ Dextrose 100 mls @ 200 mls/hr 02/08/18 10:00 02/09/18 09:10 IVPB 200 mls/hr BID ALEKSANDAR Administration Insulin Aspart 1 vial 02/08/18 16:30 02/09/18 11:22 Novolog Vial Sliding Scale - SQ Not Given ACHS [facility] Protocol Pantoprazole Sodium 40 mg 02/08/18 11:15 02/09/18 10:00 Protonix Iv IVPUSH 40 mg DAILY ALEKSANDAR Administration ASSESSMENT/PLAN: 82 F pmhx o Chronic respiratory failure via tracheostomy, COPD, DVT, A-fib, PEG tube, known lung CA (dominant mass in the JANY with bilateral nodules likely mets), DM, sacral decubitus ulcer, and dementia was admitted due to respiratory distress and hypoxia. #Neuro -Demented - at baseline #CV -currently hypotensive: Levophed 12mcg/min -taper levophed gtt to maintain MAP >65 -L Subclavian line inserted. (2PC) -L femoral line removed. -CVP 9 -Paroxysmal A-fib: no on AC per record -Monitor BP #Pulmonary -Pneumonia possibly post-obstructive, aspiration -Known L Lung mass -COPD -Duonebs QID, Arformoterol held -IV abx (Day 3): Meropenem, Topramycin. Initial emperic therapy vanc/zosyn -FU Id reccs -ABG in am -if peak pressures remain high, will consider short course of steroids #GI -tube feeding started -PPx Protonix 40mg IV daily # -Sepsis secondary to UTI -Cont. IV abx as stated above -WBC down to 16 from 28 -Bcx growing proteus and ESBL Klebsiella -yeast like organism in Ucx. -hx of MDRO, ESBL -Contact precautions -FU urine cultures -IVF -ADA -monitor urine output, creatinine -avoid nephrotoxins -Follow BMPs #Endocrine -BGM -ISS #Intugementary -Sacral Decub Stage 4 -no signs of infection -wound care #Anemia -2 PRBC -monitor H&H #FEN -No IV fluids -Mag Repleted -NPO, Begin tube feeds tomorrow #PPx -hep sq -protonix Visit type - Emergency Visit Emergency Visit: Yes ED Registration Date: 02/07/18 Care time: The patient presented to the Emergency Department on the above date and was hospitalized for further evaluation of their emergent condition. - New Patient This patient is new to me today: No - Critical Care Critical Care patient: Yes Total Critical Care Time (in minutes): 45 Critical Care Statement: The care of this patient involved high complexity decision making to prevent further life threatening deterioration of the patient 's condition and/or to evaluate & treat vital organ system(s) failure or risk of failure.
[2018-02-09] MEDS ORDERED: NOREPINEPHRINE BITARTRATE 4 MG/4 ML ML IV ONE ×2 (21:38→21:56)
[2018-02-09] MEDS: CHLORHEXIDINE GLUCONATE 4% CLEANSER FOR DECOLONIZATION TP SCH (21:57)
[2018-02-09 23:27] LABS: HEMATOCRIT 33.5 % (32.4-45.2); HEMOGLOBIN 10.7 GM/dL (10.7-15.3); MCHC 31.9 g/dl (32.0-36.0); MEAN CELL VOLUME 87.7 fl (80-96); MEAN PLT VOLUME 8.5 fl (7.5-11.1); PLATELET COUNT 322 K/MM3 (134-434); RBC 3.82 M/mm3 (3.60-5.2); RDW 16.8 % (11.6-15.6); WHITE BLOOD COUNT 15.7 K/mm3 (4.0-10.0)
[2018-02-10] MEDS: HEPARIN NA (PORCINE) 5,000 UNITS/ML 1ML VIAL SQ SCH ×3 (05:13→22:04)
[2018-02-10] MEDS: NOREPINEPHRINE BITARTRATE 4,000 MCG in DEXTROSE 5%-WATER - 496 ML IV SCH (05:15)
[2018-02-10 06:03] LABS: ARTERIAL BLD GAS O2 SATURATION 97.5 % (90-98.9); ARTERIAL BLOOD GAS BASE EXCESS -0.8 meq/l (-2-2); ARTERIAL BLOOD GAS PO2 91.6 mmHg (68-100)
[2018-02-10 06:04] LABS: ALLENS TEST POSITIVE
[2018-02-10 06:13] LABS: BASO % 0.4 % (0-2.0); EOS % 2.1 % (0-4.5); HEMATOCRIT 31.5 % (32.4-45.2); HEMOGLOBIN 10.2 GM/dL (10.7-15.3); LYMPH % 3.7 % (8-40); MCH 28.6 pg (25.7-33.7); MCHC 32.5 g/dl (32.0-36.0); MEAN CELL VOLUME 88.1 fl (80-96); MEAN PLT VOLUME 9.5 fl (7.5-11.1); MONO % 5.4 % (3.8-10.2); NEUT % 88.4 % (42.8-82.8); PLATELET COUNT 278 K/MM3 (134-434); RBC 3.57 M/mm3 (3.60-5.2); WHITE BLOOD COUNT 14.3 K/mm3 (4.0-10.0)
[2018-02-10 06:26] LABS: ARTERIAL BLOOD GAS PCO2 70.2 mmHg (35-45); ARTERIAL BLOOD GAS pH 7.22 (7.35-7.45)
[2018-02-10] MEDS: INSULIN SLIDING SCALE (NOVOLOG) 1 VIAL SQ SCH ×4 (06:46→22:29)
[2018-02-10 06:50] LABS: CHLORIDE 98 mmol/L (98-107); SODIUM 134 mmol/L (136-145)
[2018-02-10 07:02] LABS: ALBUMIN 1.5 g/dl (3.4-5.0); ALK PHOS 73 U/L (45-117); ANION GAP 6 (8-16); BILIRUBIN,TOTAL 0.7 mg/dL (0.2-1.0); BLOOD UREA NITROGEN 31 mg/dL (7-18); CALCIUM 7.8 mg/dL (8.5-10.1); CO2 30 mmol/L (21-32); CREATININE 1.1 mg/dL (0.55-1.02); GLUCOSE,RANDOM 146 mg/dL (74-106); PHOSPHOROUS 3.8 mg/dL (2.5-4.9); SGOT/AST 14 U/L (15-37); SGPT/ALT 7 U/L (12-78); TOT PROT 5.4 g/dl (6.4-8.2)
--- NOTE | 2018-02-10 07:40 | PN ---
Progress Note (short form) - Note Progress Note: ID Meropenem & Tobramycin for polymicroibal bacteremia with sepsis Remains Levophed dependent Vent dependent via trach Selected Entries 02/10/18 02/10/18 06:00 06:58 Temperature 99 F Pulse Rate 88 Respiratory 20 Rate Blood Pressure 104/49 Microbiology 02/07/18 05:04 Sputum - Endotrachea Suction/Ventilator Gram Stain - Final 02/07/18 03:00 Urine - Urine - Catheterized Urine Culture - Final Yeast Like Organism 02/07/18 02:50 Blood - Peripheral Venous Blood Culture - Final Proteus Mirabilis 02/07/18 05:04 Sputum - Endotrachea Suction/Ventilator Sputum Culture - Preliminary Pseudomonas Species Lactose Fermenting Neg Bacilli 02/07/18 02:50 Blood - Peripheral Venous Blood Culture - Preliminary Klebsiella Pneumoniae - Esbl Staphylococcus Coagulase Neg Laboratory Tests 02/07/18 02/07/18 02/08/18 03:00 07:00 05:00 WBC 22.7 H 28.8 H Hgb Hct Plt Count ABG pH ABG pCO2 at Pt Temp ABG pO2 at Pt Temp BUN Creat Clearance w eGFR Ur Leukocyte Esterase 3+ H Urine WBC (Auto) 1996 Urine Yeast Many 02/10/18 02/10/18 02/10/18 05:55 05:55 06:00 WBC 14.3 H Hgb 10.2 L Hct 31.5 L Plt Count 278 ABG pH 7.22 L* D ABG pCO2 at Pt Temp 70.2 H* ABG pO2 at Pt Temp 91.6 BUN 31 H Creat Clearance w eGFR 47.67 Ur Leukocyte Esterase Urine WBC (Auto) Urine Yeast Assessment Sepsis syndrome urinary tract source MDRO noted in blood ESBL with polymicrobial blood culture Yeast in urine cultures as well Respiratory failure Respiratory acidosis Lung Cancer Plan Continue current threrapy though borderline sensitivity to carbepenem is noted Check tobra trough In this case repeat the blood cultures Add empiric antifungal therapy with diflucan given critical illness Her prognosis remains poor Debbie BRYAN Problem List - Problems (1) Gram-negative bacteremia Code(s): R78.81 - BACTEREMIA (2) Decubitus ulcer of sacral region, stage 4 Code(s): L89.154 - PRESSURE ULCER OF SACRAL REGION, STAGE 4 (3) Sepsis Code(s): A41.9 - SEPSIS, UNSPECIFIED ORGANISM Qualifiers: Sepsis type: sepsis due to unspecified organism Qualified Code(s): A41.9 - Sepsis, unspecified organism (4) UTI (urinary tract infection) Code(s): N39.0 - URINARY TRACT INFECTION, SITE NOT SPECIFIED Qualifiers: Urinary tract infection type: site unspecified Hematuria presence: without hematuria Qualified Code(s): N39.0 - Urinary tract infection, site not specified
[2018-02-10] MEDS ORDERED: VANCOMYCIN 1,250 MG in DEXTROSE 5%-WATER - 250 ML IVPB ONE (08:30)
[2018-02-10] MEDS ORDERED: FLUCONAZOLE 400 MG/NS 200 ML IVPB ONE (08:30)
[2018-02-10] MEDS: ALBUTEROL SO4 2.5/IPRATROPIUM 0.5 INH SOL 3 ML VIAL.NEB. NEB SCH ×4 (09:22→21:00)
--- NOTE | 2018-02-10 10:50 | PN ---
Progress Note (short form) - Note Progress Note: Events noted awakens when called drowsy not following commands Vital Signs - 24 hr 02/09/18 02/09/18 02/09/18 11:00 12:00 13:00 Temperature 98.6 F 98.5 F 98.5 F Pulse Rate 71 69 72 Respiratory 21 11 L 12 Rate Blood Pressure 104/54 101/50 96/50 O2 Sat by Pulse Oximetry (%) 02/09/18 02/09/18 02/09/18 14:00 14:06 15:00 Temperature 98.2 F 98.1 F Pulse Rate 69 74 Respiratory 13 10 L 10 L Rate Blood Pressure 104/55 98/79 O2 Sat by Pulse Oximetry (%) 02/09/18 02/09/18 02/09/18 16:00 16:15 Temperature 98.2 F Pulse Rate 74 76 Respiratory 12 14 Rate Blood Pressure 98/79 106/52 O2 Sat by Pulse Oximetry (%) 02/09/18 02/09/18 02/09/18 17:00 18:00 18:25 Temperature 98.3 F 98.2 F Pulse Rate 94 H 87 Respiratory 12 11 L 15 Rate Blood Pressure 105/63 105/63 O2 Sat by Pulse Oximetry (%) 02/09/18 02/09/18 02/09/18 19:00 19:53 20:00 Temperature Pulse Rate 83 83 Respiratory 10 L 10 L 16 Rate Blood Pressure 101/55 114/55 O2 Sat by Pulse 98 Oximetry (%) 02/09/18 02/09/18 02/09/18 21:00 21:11 21:58 Temperature Pulse Rate 94 H 91 H Respiratory 14 16 Rate Blood Pressure 127/87 126/61 O2 Sat by Pulse Oximetry (%) 02/09/18 02/09/18 02/09/18 22:00 22:13 22:33 Temperature 99 F Pulse Rate 95 H 96 H Respiratory 17 25 H Rate Blood Pressure 126/61 116/86 O2 Sat by Pulse 98 Oximetry (%) 02/10/18 02/10/18 02/10/18 00:00 00:10 01:00 Temperature 99.2 F Pulse Rate 93 H 101 H Respiratory 25 H 12 30 H Rate Blood Pressure 100/46 108/51 O2 Sat by Pulse Oximetry (%) 02/10/18 02/10/18 02/10/18 02:00 03:00 03:07 Temperature 98.4 F Pulse Rate 91 H 92 H Respiratory 12 14 15 Rate Blood Pressure 96/43 100/47 O2 Sat by Pulse Oximetry (%) 02/10/18 02/10/18 02/10/18 04:00 05:00 05:30 Temperature Pulse Rate 94 H 95 H Respiratory 14 14 14 Rate Blood Pressure 100/45 101/49 O2 Sat by Pulse Oximetry (%) 02/10/18 02/10/18 02/10/18 06:00 06:46 06:58 Temperature 99 F Pulse Rate 88 Respiratory 16 20 20 Rate Blood Pressure 104/49 O2 Sat by Pulse 96 Oximetry (%) 02/10/18 02/10/18 08:00 09:10 Temperature Pulse Rate 71 Respiratory 20 20 Rate Blood Pressure 95/67 O2 Sat by Pulse Oximetry (%) Current Medications Generic Name Dose Route Start Last Admin Trade Name Freq PRN Reason Stop Dose Admin Acetaminophen 650 mg 02/07/18 10:31 02/08/18 05:48 Tylenol - PO 650 mg Q6H PRN Administration FEVER Albuterol/Ipratropium 1 amp 02/08/18 12:00 02/10/18 09:22 Duoneb - NEB 1 amp RQID [facility] Administration Chlorhexidine Gluconate 1 applic 02/08/18 22:00 02/09/18 21:57 Hibiclens For Decolonization - TP 1 applic HS ALEKSANDAR Administration Collagenase 1 applic 02/09/18 10:00 02/09/18 13:59 Santyl - TP 1 applic DAILY [facility] Administration Heparin Sodium (Porcine) 5,000 unit 02/07/18 06:00 02/10/18 05:13 Heparin - SQ 5,000 unit TID [facility] Administration Norepinephrine Bitartrate 4, 500 mls @ 37.5 mls/hr 02/07/18 12:30 02/10/18 05 :15 000 mcg/ Dextrose IV 10 mcg/min TITR ALEKSANDAR 75 mls/hr Protocol Administration 5 MCG/MIN Meropenem 1 gm/ Dextrose 100 mls @ 200 mls/hr 02/08/18 10:00 02/09/18 21:57 IVPB 200 mls/hr BID [facility] Administration Fluconazole 100 mls @ 100 mls/hr 02/11/18 10:00 Diflucan 200 Mg/D5w Premixed Ivpb - IVPB DAILY [facility] Insulin Aspart 1 vial 02/08/18 16:30 02/10/18 06:46 Novolog Vial Sliding Scale - SQ Not Given ACHS [facility] Protocol Pantoprazole Sodium 40 mg 02/08/18 11:15 02/09/18 10:00 Protonix Iv IVPUSH 40 mg DAILY [facility] Administration Laboratory Results - last 24 hr 02/09/18 02/09/18 02/09/18 11:15 11:17 12:35 WBC RBC Hgb Hct MCV MCH MCHC RDW Plt Count MPV Neutrophils % Lymphocytes % Monocytes % Eosinophils % Basophils % Puncture Site ABG pH ABG pCO2 at Pt Temp ABG pO2 at Pt Temp ABG HCO3 ABG O2 Sat (Measured) ABG O2 Content ABG Base Excess Asaf Test O2 Delivery Device Oxygen Flow Rate Vent Rate PEEP Sodium Potassium Chloride Carbon Dioxide Anion Gap BUN Creatinine Creat Clearance w eGFR POC Glucometer 189.90667 Random Glucose Calcium Phosphorus Magnesium Total Bilirubin AST ALT Alkaline Phosphatase Total Protein Albumin Tobramycin Trough 1.0 Blood Type A POSITIVE Antibody Screen Negative Crossmatch See Detail 02/09/18 02/09/18 02/09/18 16:40 20:42 23:24 WBC 15.7 H RBC 3.82 D Hgb 10.7 D Hct 33.5 D MCV 87.7 MCH 28.0 MCHC 31.9 L RDW 16.8 H Plt Count 322 MPV 8.5 D Neutrophils % Lymphocytes % Monocytes % Eosinophils % Basophils % Puncture Site ABG pH ABG pCO2 at Pt Temp ABG pO2 at Pt Temp ABG HCO3 ABG O2 Sat (Measured) ABG O2 Content ABG Base Excess Asaf Test O2 Delivery Device Oxygen Flow Rate Vent Rate PEEP Sodium Potassium Chloride Carbon Dioxide Anion Gap BUN Creatinine Creat Clearance w eGFR POC Glucometer 190.66961 172.06560 Random Glucose Calcium Phosphorus Magnesium Total Bilirubin AST ALT Alkaline Phosphatase Total Protein Albumin Tobramycin Trough Blood Type Antibody Screen Crossmatch 02/10/18 02/10/18 02/10/18 05:25 05:55 05:55 WBC 14.3 H RBC 3.57 L Hgb 10.2 L Hct 31.5 L MCV 88.1 MCH 28.6 MCHC 32.5 RDW 17.0 H Plt Count 278 MPV 9.5 D Neutrophils % 88.4 H Lymphocytes % 3.7 L D Monocytes % 5.4 Eosinophils % 2.1 Basophils % 0.4 Puncture Site ABG pH ABG pCO2 at Pt Temp ABG pO2 at Pt Temp ABG HCO3 ABG O2 Sat (Measured) ABG O2 Content ABG Base Excess Asaf Test O2 Delivery Device Oxygen Flow Rate Vent Rate PEEP Sodium Potassium Chloride Carbon Dioxide Anion Gap BUN Creatinine Creat Clearance w eGFR POC Glucometer 169.86984 Random Glucose Calcium Phosphorus Magnesium Total Bilirubin AST ALT Alkaline Phosphatase Total Protein Albumin Tobramycin Trough 1.9 Blood Type Antibody Screen Crossmatch 02/10/18 02/10/18 05:55 06:00 WBC RBC Hgb Hct MCV MCH MCHC RDW Plt Count MPV Neutrophils % Lymphocytes % Monocytes % Eosinophils % Basophils % Puncture Site Right radial ABG pH 7.22 L* D ABG pCO2 at Pt Temp 70.2 H* ABG pO2 at Pt Temp 91.6 ABG HCO3 27.6 H ABG O2 Sat (Measured) 97.5 ABG O2 Content 13.8 L ABG Base Excess -0.8 Asaf Test Positive O2 Delivery Device Vent Oxygen Flow Rate Mech vent Vent Rate 10 PEEP 5.0 Sodium 134 L Potassium 4.0 Chloride 98 Carbon Dioxide 30 Anion Gap 6 L BUN 31 H Creatinine 1.1 H Creat Clearance w eGFR 47.67 POC Glucometer Random Glucose 146 H Calcium 7.8 L Phosphorus 3.8 Magnesium 2.0 Total Bilirubin 0.7 D AST 14 L ALT 7 L Alkaline Phosphatase 73 Total Protein 5.4 L Albumin 1.5 L Tobramycin Trough Blood Type Antibody Screen Crossmatch Physical Gen: on vent ==s/p trach Heart: RRR Lung: Bilateral Rhonchi Abd: soft, non tender. peg + Ext: + edema A/P Respiratory Failure Lung ca Pneumonia Septic Shock Acute Renal Failure COPD Paroxsysmal Atrial Fibrillation. DM Lung Ca Sacral Ulcer--Stage 4 Uti Abx Monitor lytes Overall Condition Poor continue ICU monitoring Sacral decubitus care start on feeding ABG noted ID follow up noted on pressor support
[2018-02-10] MEDS ORDERED: PT OWN MED DRAWER 7, Y5N ONE ×2 (11:36→21:52)
[2018-02-10] MEDS ORDERED: NOREPINEPHRINE BITARTRATE 4 MG/4 ML ML IV ONE (11:36)
[2018-02-10 11:38] LABS: ALLENS TEST POSITIVE; ARTERIAL BLD GAS O2 SATURATION 98.9 % (90-98.9); ARTERIAL BLOOD GAS BASE EXCESS 0.4 meq/l (-2-2); ARTERIAL BLOOD GAS pH 7.34 (7.35-7.45)
[2018-02-10] MEDS: MEROPENEM 1 GM in DEXTROSE 5%-WATER 100 ML IVPB SCH ×2 (11:43→22:04)
[2018-02-10] MEDS: PANTOPRAZOLE SODIUM 40 MG VIAL IVPUSH SCH (11:44)
--- NOTE | 2018-02-10 12:18 | PN ---
Physical Exam: SUBJECTIVE: Patient seen and examined This am, pt spiked fever of 100.9. She remains vented, on levo gtt, and is poorly responsive. OBJECTIVE: Vital Signs Period Temp Pulse Resp BP Sys/Espinal Pulse Ox Last 24 Hr 98.1 F-100.9 F 69-101 10-30 95-127/43-87 96-98 General: elderly female, lying in bed, vented and poorly responsive Heart: RRR, no murmurs appreciated Lungs: scattered rhonchi in anterior lung barnes Abdomen: soft, nontender, ND Extremities: 1+ edema in LEs Neuro: poorly responsive Laboratory Results - last 24 hr 02/09/18 02/09/18 02/09/18 11:15 11:17 12:35 WBC RBC Hgb Hct MCV MCH MCHC RDW Plt Count MPV Neutrophils % Lymphocytes % Monocytes % Eosinophils % Basophils % Anticoagulation Therapy Puncture Site ABG pH ABG pCO2 at Pt Temp ABG pO2 at Pt Temp ABG HCO3 ABG O2 Sat (Measured) ABG O2 Content ABG Base Excess Asaf Test O2 Delivery Device Oxygen Flow Rate Vent Mode Vent Rate Mechanical Rate PEEP Pressure Support Vent Sodium Potassium Chloride Carbon Dioxide Anion Gap BUN Creatinine Creat Clearance w eGFR POC Glucometer [phone] Random Glucose Calcium Phosphorus Magnesium Total Bilirubin AST ALT Alkaline Phosphatase Total Protein Albumin Tobramycin Trough 1.0 Blood Type A POSITIVE Antibody Screen Negative Crossmatch See Detail 02/09/18 02/09/18 02/09/18 16:40 20:42 23:24 WBC 15.7 H RBC 3.82 D Hgb 10.7 D Hct 33.5 D MCV 87.7 MCH 28.0 MCHC 31.9 L RDW 16.8 H Plt Count 322 MPV 8.5 D Neutrophils % Lymphocytes % Monocytes % Eosinophils % Basophils % Anticoagulation Therapy Puncture Site ABG pH ABG pCO2 at Pt Temp ABG pO2 at Pt Temp ABG HCO3 ABG O2 Sat (Measured) ABG O2 Content ABG Base Excess Asaf Test O2 Delivery Device Oxygen Flow Rate Vent Mode Vent Rate Mechanical Rate PEEP Pressure Support Vent Sodium Potassium Chloride Carbon Dioxide Anion Gap BUN Creatinine Creat Clearance w eGFR POC Glucometer 190.09301 172.03873 Random Glucose Calcium Phosphorus Magnesium Total Bilirubin AST ALT Alkaline Phosphatase Total Protein Albumin Tobramycin Trough Blood Type Antibody Screen Crossmatch 02/10/18 02/10/18 02/10/18 05:25 05:55 05:55 WBC 14.3 H RBC 3.57 L Hgb 10.2 L Hct 31.5 L MCV 88.1 MCH 28.6 MCHC 32.5 RDW 17.0 H Plt Count 278 MPV 9.5 D Neutrophils % 88.4 H Lymphocytes % 3.7 L D Monocytes % 5.4 Eosinophils % 2.1 Basophils % 0.4 Anticoagulation Therapy Puncture Site ABG pH ABG pCO2 at Pt Temp ABG pO2 at Pt Temp ABG HCO3 ABG O2 Sat (Measured) ABG O2 Content ABG Base Excess Asaf Test O2 Delivery Device Oxygen Flow Rate Vent Mode Vent Rate Mechanical Rate PEEP Pressure Support Vent Sodium Potassium Chloride Carbon Dioxide Anion Gap BUN Creatinine Creat Clearance w eGFR POC Glucometer 169.74564 Random Glucose Calcium Phosphorus Magnesium Total Bilirubin AST ALT Alkaline Phosphatase Total Protein Albumin Tobramycin Trough 1.9 Blood Type Antibody Screen Crossmatch 02/10/18 02/10/18 02/10/18 05:55 06:00 09:47 WBC RBC Hgb Hct MCV MCH MCHC RDW Plt Count MPV Neutrophils % Lymphocytes % Monocytes % Eosinophils % Basophils % Anticoagulation Therapy No Result Required. Puncture Site Right radial Right radial ABG pH 7.22 L* D 7.34 L ABG pCO2 at Pt Temp 70.2 H* 50.0 H D ABG pO2 at Pt Temp 91.6 109.0 H ABG HCO3 27.6 H 26.0 ABG O2 Sat (Measured) 97.5 98.9 ABG O2 Content 13.8 L 12.6 L ABG Base Excess -0.8 0.4 Asaf Test Positive Positive O2 Delivery Device Vent Mech vent Oxygen Flow Rate Mech vent 50% Vent Mode A/c Vent Rate 10 20 Mechanical Rate Yes PEEP 5.0 5.0 Pressure Support Vent 400 Sodium 134 L Potassium 4.0 Chloride 98 Carbon Dioxide 30 Anion Gap 6 L BUN 31 H Creatinine 1.1 H Creat Clearance w eGFR 47.67 POC Glucometer Random Glucose 146 H Calcium 7.8 L Phosphorus 3.8 Magnesium 2.0 Total Bilirubin 0.7 D AST 14 L ALT 7 L Alkaline Phosphatase 73 Total Protein 5.4 L Albumin 1.5 L Tobramycin Trough Blood Type Antibody Screen Crossmatch Active Medications Generic Name Dose Route Start Last Admin Trade Name Freq PRN Reason Stop Dose Admin Acetaminophen 650 mg 02/07/18 10:31 02/08/18 05:48 Tylenol - PO 650 mg Q6H PRN Administration FEVER Albuterol/Ipratropium 1 amp 02/08/18 12:00 02/10/18 11:58 Duoneb - NEB 1 amp RQID ALEKSANDAR Administration Chlorhexidine Gluconate 1 applic 02/08/18 22:00 02/09/18 21:57 Hibiclens For Decolonization - TP 1 applic HS ALEKSANDAR Administration Collagenase 1 applic 02/09/18 10:00 02/09/18 13:59 Santyl - TP 1 applic DAILY [facility] Administration Heparin Sodium (Porcine) 5,000 unit 02/07/18 06:00 02/10/18 05:13 Heparin - SQ 5,000 unit TID [facility] Administration Meropenem 1 gm/ Dextrose 100 mls @ 200 mls/hr 02/08/18 10:00 02/10/18 11:43 IVPB 200 mls/hr BID [facility] Administration Fluconazole 100 mls @ 100 mls/hr 02/11/18 10:00 Diflucan 200 Mg/D5w Premixed Ivpb - IVPB DAILY [facility] Norepinephrine Bitartrate 8, 500 mls @ 18.75 mls/hr 02/10/18 12:15 000 mcg/ Dextrose IV TITR [facility] Protocol 5 MCG/MIN Insulin Aspart 1 vial 02/08/18 16:30 02/10/18 06:46 Novolog Vial Sliding Scale - SQ Not Given ACHS [facility] Protocol Methylprednisolone Sodium Succinate 40 mg 02/10/18 12:15 Solu-Medrol - IVPUSH Q8H-IV [facility] Pantoprazole Sodium 40 mg 02/08/18 11:15 02/10/18 11:44 Protonix Iv IVPUSH 40 mg DAILY [facility] Administration ASSESSMENT/PLAN: 82F w/ pmhx of chronic respiratory failure via tracheostomy, COPD, DVT, A-fib, PEG tube, known lung CA (dominant mass in the JANY with bilateral nodules likely mets), DM, sacral decubitus ulcer, and dementia who was admitted due to respiratory distress and hypoxia. Neuro #dementia -poorly responsive CV -still hypotensive: on levophed. taper levophed gtt to maintain MAP >65 -L subclavian line -CVP measurements -Paroxysmal A-fib: no on AC per record Pulmonary #PNA #Known L Lung mass #COPD -Duonebs QID -IV abx (Day 4) per ID. Appreciate recs -due to high peak pressures, solumedrol 40mg q8h started GI -tube feeding -Protonix 40mg IV daily -Septic shock 2/2 UTI -IV abx per ID -leukokcytosis of 14, down from 15. Tmax of 99 overnight -Bcx: proteus and ESBL Klebsiella -hx of MDRO, ESBL -Contact precautions -F/U urine cultures -creatinine of 1.1, stable -avoid nephrotoxins Endocrine -BGM -ISS Derm #Sacral Decub ulcer Stage 4 -wound care Hematology -Hgb of 10.2 today, down from 10.7 -continue to monitor Hgb FEN/PPX -No IVF -electrolytes wnl -tube feeds -hep sq -protonix Case discussed with attending, Dr. Broussard. -Edd Rodriguez MD PGY1 ICU Team Visit type - Emergency Visit Emergency Visit: Yes ED Registration Date: 02/07/18 Care time: The patient presented to the Emergency Department on the above date and was hospitalized for further evaluation of their emergent condition. - New Patient This patient is new to me today: Yes Date on this admission: 02/11/18 - Critical Care Critical Care patient: Yes Total Critical Care Time (in minutes): 37 Critical Care Statement: The care of this patient involved high complexity decision making to prevent further life threatening deterioration of the patient 's condition and/or to evaluate & treat vital organ system(s) failure or risk of failure.
[2018-02-10] MEDS: NOREPINEPHRINE BITARTRATE 8,000 MCG in DEXTROSE 5%-WATER - 492 ML IV SCH (12:24)
[2018-02-10] MEDS: COLLAGENASE CLOSTRIDIUM HIST. 30 GRAMS TUBE TP SCH (12:26)
[2018-02-10] MEDS: methylPREDNISolone NA SUCC 40 MG/1 ML VIAL IVPUSH SCH ×2 (12:28→17:08)
--- NOTE | 2018-02-10 12:50 | PN ---
Teaching Attending Note Name of Resident: Edd Rodriguez ATTENDING PHYSICIAN STATEMENT I saw and evaluated the patient. I reviewed the resident's note and discussed the case with the resident. I agree with the resident's findings and plan as documented. SUBJECTIVE: Pt seen and examined in the ICU. Remains intubated, poorly responsive. Remains on levophed gtt. Fevers this AM. OBJECTIVE: Last Vital Signs Temp Pulse Resp BP Pulse Ox 100.9 F H 79 18 105/55 96 02/10/18 10:00 02/10/18 12:24 02/10/18 12:00 02/10/18 12:24 02/10/18 06:46 Intake & Output 02/07/18 02/08/18 02/09/18 02/10/18 23:59 23:59 23:59 23:59 Intake Total 3627.5 5090 3099 1720 Output Total 433 140 3831 550 Balance 3302.5 4115 1624 1170 Weight 72.5 kg 76.912 kg 77.111 kg 79.152 kg Gen: vented, poorly responsive Heart: RRR Lung: scattered rhonchi Abd: soft, nontender Ext: + edema CBC, BMP 02/10/18 05:55 02/10/18 05:55 Active Medications Acetaminophen (Tylenol -) 650 mg PO Q6H PRN PRN Reason: FEVER Last Admin: 02/08/18 05:48 Dose: 650 mg Albuterol/Ipratropium (Duoneb -) 1 amp NEB RQID [facility] Last Admin: 02/10/18 11:58 Dose: 1 amp Chlorhexidine Gluconate (Hibiclens For Decolonization -) 1 applic TP HS [facility] Last Admin: 02/09/18 21:57 Dose: 1 applic Collagenase (Santyl -) 1 applic TP DAILY [facility] Last Admin: 02/10/18 12:26 Dose: 1 applic Heparin Sodium (Porcine) (Heparin -) 5,000 unit SQ TID [facility] Last Admin: 02/10/18 05:13 Dose: 5,000 unit Meropenem 1 gm/ Dextrose 100 mls @ 200 mls/hr IVPB BID [facility] Last Admin: 02/10/18 11:43 Dose: 200 mls/hr Fluconazole (Diflucan 200 Mg/D5w Premixed Ivpb -) 100 mls @ 100 mls/hr IVPB DAILY [facility] Norepinephrine Bitartrate 8, (000 mcg/ Dextrose) 500 mls @ 18.75 mls/hr IV TITR ALEKSANDAR; 5 MCG/MIN PRN Reason: Protocol Last Admin: 02/10/18 12:24 Dose: 4.98 mcg/min, 18.7 mls/hr Insulin Aspart (Novolog Vial Sliding Scale -) 1 vial SQ ACHS A[facility]KSANDAR PRN Reason: Protocol Last Admin: 02/10/18 12:23 Dose: Not Given Methylprednisolone Sodium Succinate (Solu-Medrol -) 40 mg IVPUSH Q8H-IV [facility] Last Admin: 02/10/18 12:28 Dose: 40 mg Pantoprazole Sodium (Protonix Iv) 40 mg IVPUSH DAILY [facility] Last Admin: 02/10/18 11:44 Dose: 40 mg ASSESSMENT AND PLAN: Chronic Respiratory Failure UTI Pneumonia Septic Shock Acute Kidney Injury COPD Atrial Fibrillation DM Lung Ca Sacral Decubitus Ulcer Dementia - continue antibiotics - f/u cultures - check CVP, keep 8-12 - taper levophed gtt to maintain MAP >65 - monitor H/H - monitor urine output, creatinine - inhaled bronchodilators - start course of steroids for high peak pressures - enteral feeds - DVT/GI prophylaxis - continue ICU monitoring critical care time spent in reviewing chart, evaluating patient and formulating plan 35 min
[2018-02-10 14:27] LABS: ARTERIAL BLD GAS O2 SATURATION 93.1 % (90-98.9); ARTERIAL BLOOD GAS BASE EXCESS -1.9 meq/l (-2-2)
[2018-02-10 14:30] LABS: ALLENS TEST POSITIVE
[2018-02-10 14:34] LABS: ARTERIAL BLOOD GAS PCO2 71.6 mmHg (35-45); ARTERIAL BLOOD GAS PO2 70.6 mmHg (68-100)
[2018-02-10] MEDS ORDERED: TOBRAMYCIN SULFATE 80 MG in SODIUM CHLORIDE 100 ML IVPB ONE (14:35)
[2018-02-10 18:14] LABS: ARTERIAL BLD GAS O2 SATURATION 98.5 % (90-98.9); ARTERIAL BLOOD GAS PCO2 57.1 mmHg (35-45); ARTERIAL BLOOD GAS pH 7.29 (7.35-7.45)
[2018-02-10 18:17] LABS: ALLENS TEST POSITIVE
[2018-02-10] MEDS: CHLORHEXIDINE GLUCONATE 4% CLEANSER FOR DECOLONIZATION TP SCH (22:04)
[2018-02-11] MEDS: NOREPINEPHRINE BITARTRATE 8,000 MCG in DEXTROSE 5%-WATER - 492 ML IV SCH ×2 (01:46→23:40)
[2018-02-11] MEDS: methylPREDNISolone NA SUCC 40 MG/1 ML VIAL IVPUSH SCH ×3 (02:00→17:21)
[2018-02-11] MEDS: HEPARIN NA (PORCINE) 5,000 UNITS/ML 1ML VIAL SQ SCH ×3 (06:10→23:39)
[2018-02-11 06:49] LABS: BASO % 0.1 % (0-2.0); HEMATOCRIT 30.1 % (32.4-45.2); HEMOGLOBIN 10.2 GM/dL (10.7-15.3); LYMPH % 3.1 % (8-40); MCH 29.4 pg (25.7-33.7); MCHC 33.9 g/dl (32.0-36.0); MEAN CELL VOLUME 86.7 fl (80-96); MEAN PLT VOLUME 9.5 fl (7.5-11.1); MONO % 0.8 % (3.8-10.2); PLATELET COUNT 208 K/MM3 (134-434); RBC 3.47 M/mm3 (3.60-5.2); RDW 16.8 % (11.6-15.6); WHITE BLOOD COUNT 5.2 K/mm3 (4.0-10.0)
[2018-02-11] MEDS: INSULIN SLIDING SCALE (NOVOLOG) 1 VIAL SQ SCH ×4 (07:14→23:39)
[2018-02-11 07:17] LABS: ALBUMIN 1.5 g/dl (3.4-5.0); ANION GAP 7 (8-16); BLOOD UREA NITROGEN 34 mg/dL (7-18); CALCIUM 7.8 mg/dL (8.5-10.1); CHLORIDE 98 mmol/L (98-107); CO2 29 mmol/L (21-32); GLUCOSE,RANDOM 174 mg/dL (74-106); MAGNESIUM 1.9 mg/dL (1.8-2.4); POTASSIUM 4.7 mmol/L (3.5-5.1); SGOT/AST 13 U/L (15-37); SODIUM 134 mmol/L (136-145)
[2018-02-11 07:19] LABS: ALK PHOS 62 U/L (45-117); BILIRUBIN,TOTAL 0.4 mg/dL (0.2-1.0); CREATININE 1.1 mg/dL (0.55-1.02); PHOSPHOROUS 3.3 mg/dL (2.5-4.9); SGPT/ALT 9 U/L (12-78); TOT PROT 5.5 g/dl (6.4-8.2)
[2018-02-11] MEDS: ALBUTEROL SO4 2.5/IPRATROPIUM 0.5 INH SOL 3 ML VIAL.NEB. NEB SCH ×4 (07:50→20:44)
--- NOTE | 2018-02-11 08:50 | PN ---
Progress Note, Physician Chief Complaint: ID Vancomycin 1 dose Meropenem Tobra ( held) Diflucan - Current Medication List Current Medications: Active Medications Acetaminophen (Tylenol -) 650 mg PO Q6H PRN PRN Reason: FEVER Last Admin: 02/08/18 05:48 Dose: 650 mg Albuterol/Ipratropium (Duoneb -) 1 amp NEB RQID [facility] Last Admin: 02/10/18 21:00 Dose: 1 amp Chlorhexidine Gluconate (Hibiclens For Decolonization -) 1 applic TP HS [facility] Last Admin: 02/10/18 22:04 Dose: 1 applic Collagenase (Santyl -) 1 applic TP DAILY [facility] Last Admin: 02/10/18 12:26 Dose: 1 applic Heparin Sodium (Porcine) (Heparin -) 5,000 unit SQ TID [facility] Last Admin: 02/11/18 06:10 Dose: 5,000 unit Meropenem 1 gm/ Dextrose 100 mls @ 200 mls/hr IVPB BID [facility] Last Admin: 02/10/18 22:04 Dose: 200 mls/hr Fluconazole (Diflucan 200 Mg/D5w Premixed Ivpb -) 100 mls @ 100 mls/hr IVPB DAILY [facility] Norepinephrine Bitartrate 8, (000 mcg/ Dextrose) 500 mls @ 18.75 mls/hr IV TITR ALEKSANDAR; 5 MCG/MIN PRN Reason: Protocol Last Admin: 02/11/18 01:46 Dose: 5 mcg/min, 18.75 mls/hr Insulin Aspart (Novolog Vial Sliding Scale -) 1 vial SQ ACHS [facility] PRN Reason: Protocol Last Admin: 02/11/18 07:14 Dose: 2 units Methylprednisolone Sodium Succinate (Solu-Medrol -) 40 mg IVPUSH Q8H-IV [facility] Last Admin: 02/11/18 02:00 Dose: 40 mg Pantoprazole Sodium (Protonix Iv) 40 mg IVPUSH DAILY [facility] Last Admin: 02/10/18 11:44 Dose: 40 mg - Objective Vital Signs: Vital Signs Temperature 98.8 F 02/11/18 06:00 Pulse Rate 78 02/11/18 07:00 Respiratory Rate 18 02/11/18 07:00 Blood Pressure 107/54 02/11/18 07:00 O2 Sat by Pulse Oximetry (%) 96 02/10/18 18:33 Constitutional: Yes: No Distress Cardiovascular: Yes: S1, S2 Respiratory: Yes: WNL, Regular, CTA Bilaterally Gastrointestinal: Yes: Soft. No: Tenderness Labs: CBC, BMP 02/11/18 05:40 02/11/18 05:40 INR, PTT INR 1.20 (0.82-1.09) H 02/07/18 07:00 Problem List - Problems (1) Gram-negative bacteremia Code(s): R78.81 - BACTEREMIA (2) Decubitus ulcer of sacral region, stage 4 Code(s): L89.154 - PRESSURE ULCER OF SACRAL REGION, STAGE 4 (3) Sepsis Code(s): A41.9 - SEPSIS, UNSPECIFIED ORGANISM Qualifiers: Qualified Code(s): A41.9 - Sepsis, unspecified organism (4) UTI (urinary tract infection) Code(s): N39.0 - URINARY TRACT INFECTION, SITE NOT SPECIFIED Qualifiers: Qualified Code(s): N39.0 - Urinary tract infection, site not specified Assessment/Plan Microbiology 02/07/18 05:04 Sputum - Endotrachea Suction/Ventilator Gram Stain - Final 02/07/18 03:00 Urine - Urine - Catheterized Urine Culture - Final Yeast Like Organism 02/07/18 02:50 Blood - Peripheral Venous Blood Culture - Final Proteus Mirabilis 02/07/18 05:04 Sputum - Endotrachea Suction/Ventilator Sputum Culture - Preliminary Pseudomonas Aeruginosa Lactose Fermenting Neg Bacilli 02/07/18 02:50 Blood - Peripheral Venous Blood Culture - Preliminary Klebsiella Pneumoniae - Esbl Staphylococcus Coagulase Neg Laboratory Tests 02/07/18 02/10/18 02/11/18 07:00 05:55 05:40 WBC 22.7 H 5.2 D Hgb 10.2 L Hct 30.1 L Plt Count 208 D BUN Creatinine Creat Clearance w eGFR Tobramycin Trough Pending 02/11/18 05:40 WBC Hgb Hct Plt Count BUN 34 H Creatinine 1.1 H Creat Clearance w eGFR 47.67 Tobramycin Trough Assessment Sepsis polymicroial UTI CRE noted in 1 blood culture pansensitive Proteus in the other Seems sto be responding Plan Continue current therapy Tobramycin Add Ceftriaxone for Proteus ISOLATION Debbie BRYAN
[2018-02-11 09:53] LABS: ARTERIAL BLD GAS O2 SATURATION 97.3 % (90-98.9); ARTERIAL BLOOD GAS BASE EXCESS 1.3 meq/l (-2-2); ARTERIAL BLOOD GAS PCO2 57.8 mmHg (35-45); ARTERIAL BLOOD GAS PO2 86.7 mmHg (68-100)
[2018-02-11 09:54] LABS: ALLENS TEST POSITIVE
--- NOTE | 2018-02-11 09:55 | PN ---
Progress Note (short form) - Note Progress Note: low grade temp , cultures redrawn awakens when called drowsy not following commands Vital Signs - 24 hr 02/10/18 02/10/18 02/10/18 12:00 12:24 13:00 Temperature Pulse Rate 79 79 80 Respiratory 18 18 Rate Blood Pressure 105/55 105/55 108/71 O2 Sat by Pulse Oximetry (%) 02/10/18 02/10/18 02/10/18 14:00 14:20 15:00 Temperature 99.8 F H Pulse Rate 82 74 Respiratory 18 18 18 Rate Blood Pressure 128/83 111/52 O2 Sat by Pulse Oximetry (%) 02/10/18 02/10/18 02/10/18 16:00 16:45 16:54 Temperature 99.0 F Pulse Rate 75 Respiratory 18 18 Rate Blood Pressure 104/49 O2 Sat by Pulse 96 Oximetry (%) 02/10/18 02/10/18 02/10/18 17:00 17:05 18:00 Temperature Pulse Rate 72 68 76 Respiratory 18 18 Rate Blood Pressure 119/55 119/55 120/75 O2 Sat by Pulse Oximetry (%) 02/10/18 02/10/18 02/10/18 18:33 19:00 20:00 Temperature Pulse Rate 77 78 Respiratory 18 17 Rate Blood Pressure 117/59 123/58 O2 Sat by Pulse 96 Oximetry (%) 02/10/18 02/10/18 02/10/18 21:00 21:10 22:00 Temperature 99.1 F Pulse Rate 72 69 Respiratory 16 18 18 Rate Blood Pressure 111/48 135/57 O2 Sat by Pulse Oximetry (%) 02/10/18 02/11/18 02/11/18 23:00 00:00 00:35 Temperature Pulse Rate 80 79 Respiratory 18 19 18 Rate Blood Pressure 116/73 117/64 O2 Sat by Pulse Oximetry (%) 02/11/18 02/11/18 02/11/18 01:00 01:42 01:46 Temperature 99.2 F Pulse Rate 76 75 77 Respiratory 22 18 Rate Blood Pressure 121/69 101/52 101/52 O2 Sat by Pulse Oximetry (%) 02/11/18 02/11/18 02/11/18 03:33 04:00 05:00 Temperature Pulse Rate 77 74 Respiratory 18 18 18 Rate Blood Pressure 117/55 111/68 O2 Sat by Pulse Oximetry (%) 02/11/18 02/11/18 02/11/18 06:00 06:32 07:00 Temperature 98.8 F Pulse Rate 74 78 Respiratory 19 19 18 Rate Blood Pressure 125/82 107/54 O2 Sat by Pulse Oximetry (%) 02/11/18 02/11/18 02/11/18 08:00 09:00 10:00 Temperature 98.7 F Pulse Rate 89 90 Respiratory 19 18 14 Rate Blood Pressure 96/58 102/53 O2 Sat by Pulse 97 Oximetry (%) Current Medications Generic Name Dose Route Start Last Admin Trade Name Freq PRN Reason Stop Dose Admin Acetaminophen 650 mg 02/07/18 10:31 02/08/18 05:48 Tylenol - PO 650 mg Q6H PRN Administration FEVER Albuterol/Ipratropium 1 amp 02/08/18 12:00 02/11/18 07:50 Duoneb - NEB 1 amp RQID ALEKSANDAR Administration Chlorhexidine Gluconate 1 applic 02/08/18 22:00 02/10/18 22:04 Hibiclens For Decolonization - TP 1 applic HS ALEKSANDAR Administration Collagenase 1 applic 02/09/18 10:00 02/11/18 10:27 Santyl - TP 1 applic DAILY ALEKSANDAR Administration Heparin Sodium (Porcine) 5,000 unit 02/07/18 06:00 02/11/18 06:10 Heparin - SQ 5,000 unit TID ALEKSANDAR Administration Fluconazole 100 mls @ 100 mls/hr 02/11/18 10:00 02/11/18 10:24 Diflucan 200 Mg/D5w Premixed Ivpb - IVPB 100 mls/hr DAILY ALEKSANDAR Administration Norepinephrine Bitartrate 8, 500 mls @ 18.75 mls/hr 02/10/18 12:15 02/11/18 01:46 000 mcg/ Dextrose IV 5 mcg/min TITR ALEKSANDAR 18.75 mls/hr Protocol Administration 5 MCG/MIN Tobramycin Sulfate 80 mg/ 102 mls @ 100 mls/hr 02/11/18 10:00 Sodium Chloride IVPB DAILY ALEKSANDAR Protocol Insulin Aspart 1 vial 02/08/18 16:30 02/11/18 07:14 Novolog Vial Sliding Scale - SQ 2 units ACHS ALEKSANDAR Administration Protocol Methylprednisolone Sodium Succinate 40 mg 02/10/18 12:15 02/11/18 10:23 Solu-Medrol - IVPUSH 40 mg Q8H-IV ALEKSANDAR Administration Pantoprazole Sodium 40 mg 02/08/18 11:15 02/11/18 10:24 Protonix Iv IVPUSH 40 mg DAILY ALEKSANDAR Administration Laboratory Results - last 24 hr 02/07/18 02/10/18 02/10/18 21:35 09:47 14:17 WBC RBC Hgb Hct MCV MCH MCHC RDW Plt Count MPV Neutrophils % Lymphocytes % Monocytes % Eosinophils % Basophils % Anticoagulation Therapy No Result Required. Puncture Site Right radial Right radial ABG pH 7.34 L 7.20 L* ABG pCO2 at Pt Temp 50.0 H D 71.6 H* D ABG pO2 at Pt Temp 109.0 H 70.6 D ABG HCO3 26.0 27.0 H ABG O2 Sat (Measured) 98.9 93.1 ABG O2 Content 12.6 L 13.9 L ABG Base Excess 0.4 -1.9 Asaf Test Positive Positive O2 Delivery Device Mech vent Mech vent Oxygen Flow Rate 50% 50% Vent Mode A/c A/c Vent Rate 20 18 Mechanical Rate Yes Yes PEEP 5.0 5.0 Pressure Support Vent 400 360 Sodium Potassium Chloride Carbon Dioxide Anion Gap BUN Creatinine Creat Clearance w eGFR POC Glucometer [phone] Random Glucose Calcium Phosphorus Magnesium Total Bilirubin AST ALT Alkaline Phosphatase Total Protein Albumin Tobramycin Trough 02/10/18 02/10/18 02/10/18 16:15 17:28 18:02 WBC RBC Hgb Hct MCV MCH MCHC RDW Plt Count MPV Neutrophils % Lymphocytes % Monocytes % Eosinophils % Basophils % Anticoagulation Therapy No Result Required. No Result Required. Puncture Site Right radial ABG pH 7.29 L ABG pCO2 at Pt Temp 57.1 H D ABG pO2 at Pt Temp 108.0 H D ABG HCO3 26.7 H ABG O2 Sat (Measured) 98.5 ABG O2 Content 14.5 L ABG Base Excess 0.0 Asaf Test Positive O2 Delivery Device No Result Required. Mech vent Oxygen Flow Rate No Result Required. 60% Vent Mode No Result Required. A/c Vent Rate No Result Required. 18 Mechanical Rate No Result Required. No Result Required. PEEP 5.0 Pressure Support Vent No Result Required. 400 Sodium Potassium Chloride Carbon Dioxide Anion Gap BUN Creatinine Creat Clearance w eGFR POC Glucometer [phone] Random Glucose Calcium Phosphorus Magnesium Total Bilirubin AST ALT Alkaline Phosphatase Total Protein Albumin Tobramycin Trough 02/11/18 02/11/18 02/11/18 05:40 05:40 05:40 WBC 5.2 D RBC 3.47 L Hgb 10.2 L Hct 30.1 L MCV 86.7 MCH 29.4 MCHC 33.9 RDW 16.8 H Plt Count 208 D MPV 9.5 Neutrophils % 96.0 H Lymphocytes % 3.1 L Monocytes % 0.8 L D Eosinophils % 0.0 D Basophils % 0.1 Anticoagulation Therapy Puncture Site ABG pH ABG pCO2 at Pt Temp ABG pO2 at Pt Temp ABG HCO3 ABG O2 Sat (Measured) ABG O2 Content ABG Base Excess Asaf Test O2 Delivery Device Oxygen Flow Rate Vent Mode Vent Rate Mechanical Rate PEEP Pressure Support Vent Sodium 134 L Potassium 4.7 Chloride 98 Carbon Dioxide 29 Anion Gap 7 L BUN 34 H Creatinine 1.1 H Creat Clearance w eGFR 47.67 POC Glucometer Random Glucose 174 H Calcium 7.8 L Phosphorus 3.3 Magnesium 1.9 Total Bilirubin 0.4 D AST 13 L ALT 9 L Alkaline Phosphatase 62 Total Protein 5.5 L Albumin 1.5 L Tobramycin Trough 2.0 02/11/18 09:48 WBC RBC Hgb Hct MCV MCH MCHC RDW Plt Count MPV Neutrophils % Lymphocytes % Monocytes % Eosinophils % Basophils % Anticoagulation Therapy Puncture Site Right radial ABG pH 7.30 L ABG pCO2 at Pt Temp 57.8 H ABG pO2 at Pt Temp 86.7 D ABG HCO3 27.9 H ABG O2 Sat (Measured) 97.3 ABG O2 Content 13.1 L ABG Base Excess 1.3 Asaf Test Positive O2 Delivery Device Oxygen Flow Rate 40 Vent Mode A/c Vent Rate 18 Mechanical Rate PEEP 5.0 Pressure Support Vent 420 Sodium Potassium Chloride Carbon Dioxide Anion Gap BUN Creatinine Creat Clearance w eGFR POC Glucometer Random Glucose Calcium Phosphorus Magnesium Total Bilirubin AST ALT Alkaline Phosphatase Total Protein Albumin Tobramycin Trough Physical Gen: on vent ==s/p trach Heart: RRR Lung: Bilateral Rhonchi Abd: soft, non tender. peg + Ext: + edema A/P Respiratory Failure Lung ca Pneumonia Septic Shock Acute Renal Failure COPD Paroxsysmal Atrial Fibrillation. DM Sacral Ulcer--Stage 4 UtI Abx Monitor lytes Overall Condition Poor continue ICU monitoring Sacral decubitus care repeat blood cultures ABG noted ID follow up noted on pressor support on Solumedrol for high peak pressures
[2018-02-11] MEDS ORDERED: FLUCONAZOLE 200 MG/D5W 100 ML IVPB SCH (10:00)
[2018-02-11] MEDS ORDERED: TOBRAMYCIN SULFATE 80 MG in SODIUM CHLORIDE 100 ML IVPB SCH (10:00)
[2018-02-11] MEDS ORDERED: PT OWN MED DRAWER 7, Y5N ONE (10:19)
[2018-02-11] MEDS: PANTOPRAZOLE SODIUM 40 MG VIAL IVPUSH SCH (10:24)
[2018-02-11] MEDS: COLLAGENASE CLOSTRIDIUM HIST. 30 GRAMS TUBE TP SCH (10:27)
[2018-02-11] MEDS ORDERED: FUROSEMIDE 40 MG/4 ML INJECTABLE VIAL IVPUSH ONE (10:54)
--- NOTE | 2018-02-11 11:50 | PN ---
Teaching Attending Note Name of Resident: Adam Molina ATTENDING PHYSICIAN STATEMENT I saw and evaluated the patient. I reviewed the resident's note and discussed the case with the resident. I agree with the resident's findings and plan as documented. SUBJECTIVE: Pt seen and examined in the ICU. Vented, more awake. Off pressors overnight. OBJECTIVE: Last Vital Signs Temp Pulse Resp BP Pulse Ox 98.7 F 90 14 102/53 97 02/11/18 10:00 02/11/18 10:00 02/11/18 10:00 02/11/18 10:00 02/11/18 09:00 Intake & Output 02/08/18 02/09/18 02/10/18 02/11/18 23:59 23:59 23:59 23:59 Intake Total 5090 3099 3937 815 Output Total 975 1475 1650 400 Balance 4115 1624 2287 415 Weight 76.912 kg 77.111 kg 79.152 kg 81.1 kg Gen: vented, awake Heart: RRR Lung: bilateral rhonchi Abd: soft, nontender Ext: + edema CBC, BMP 02/11/18 05:40 02/11/18 05:40 Active Medications Acetaminophen (Tylenol -) 650 mg PO Q6H PRN PRN Reason: FEVER Last Admin: 02/08/18 05:48 Dose: 650 mg Albuterol/Ipratropium (Duoneb -) 1 amp NEB RQID [facility] Last Admin: 02/11/18 07:50 Dose: 1 amp Chlorhexidine Gluconate (Hibiclens For Decolonization -) 1 applic TP HS [facility] Last Admin: 02/10/18 22:04 Dose: 1 applic Collagenase (Santyl -) 1 applic TP DAILY [facility] Last Admin: 02/11/18 10:27 Dose: 1 applic Heparin Sodium (Porcine) (Heparin -) 5,000 unit SQ TID [facility] Last Admin: 02/11/18 06:10 Dose: 5,000 unit Fluconazole (Diflucan 200 Mg/D5w Premixed Ivpb -) 100 mls @ 100 mls/hr IVPB DAILY [facility] Last Admin: 02/11/18 10:24 Dose: 100 mls/hr Norepinephrine Bitartrate 8, (000 mcg/ Dextrose) 500 mls @ 18.75 mls/hr IV TITR ALEKSANDAR; 5 MCG/MIN PRN Reason: Protocol Last Admin: 02/11/18 01:46 Dose: 5 mcg/min, 18.75 mls/hr Tobramycin Sulfate 80 mg/ (Sodium Chloride) 102 mls @ 100 mls/hr IVPB DAILY [facility] PRN Reason: Protocol Insulin Aspart (Novolog Vial Sliding Scale -) 1 vial SQ ACHS ALEKSANDAR PRN Reason: Protocol Last Admin: 02/11/18 07:14 Dose: 2 units Methylprednisolone Sodium Succinate (Solu-Medrol -) 40 mg IVPUSH Q8H-IV [facility] Last Admin: 02/11/18 10:23 Dose: 40 mg Pantoprazole Sodium (Protonix Iv) 40 mg IVPUSH DAILY [facility] Last Admin: 02/11/18 10:24 Dose: 40 mg ASSESSMENT AND PLAN: Chronic Respiratory Failure UTI Pneumonia Septic Shock Acute Kidney Injury COPD Atrial Fibrillation DM Lung Ca Sacral Decubitus Ulcer Dementia - continue antibiotics - monitor off pressors, maintain MAP >65 - lasix today if remains hemodynamically stable - monitor H/H - monitor urine output, creatinine - inhaled bronchodilators - can start to taper steroids in AM - enteral feeds - DVT/GI prophylaxis - can monitor on vent floor critical care time spent in reviewing chart, evaluating patient and formulating plan 35 min
--- NOTE | 2018-02-11 12:04 | PN ---
Physical Exam: SUBJECTIVE: Patient seen and examined. Awake, more alert. Off pressors since last night. Maintaining BP. OBJECTIVE: Vital Signs Period Temp Pulse Resp BP Sys/Espinal Pulse Ox Last 24 Hr 98.7 F-99.8 F 68-90 14-22 96-135/48-83 96-97 GENERAL: awake, more alert, able to follow simple commands EYES: sclera anicteric, conjunctiva clear. No ptosis. ENT: oropharynx clear without exudates, moist mucous membranes. LUNGS: scattered rhonchi, trach in place, central and secured. vent settings: Rate 18, TV 420, O2 40%, Peep 5 HEART: Regular rate and rhythm, no murmurs appreciated ABDOMEN:no grimacing on palpation, peg tube in place EXTREMITIES: anasarca, 1+ edema LE Laboratory Results - last 24 hr 02/07/18 02/10/18 02/10/18 21:35 14:17 16:15 WBC RBC Hgb Hct MCV MCH MCHC RDW Plt Count MPV Neutrophils % Lymphocytes % Monocytes % Eosinophils % Basophils % Anticoagulation Therapy No Result Required. Puncture Site Right radial ABG pH 7.20 L* ABG pCO2 at Pt Temp 71.6 H* D ABG pO2 at Pt Temp 70.6 D ABG HCO3 27.0 H ABG O2 Sat (Measured) 93.1 ABG O2 Content 13.9 L ABG Base Excess -1.9 Asaf Test Positive O2 Delivery Device Mech vent No Result Required. Oxygen Flow Rate 50% No Result Required. Vent Mode A/c No Result Required. Vent Rate 18 No Result Required. Mechanical Rate Yes No Result Required. PEEP 5.0 Pressure Support Vent 360 No Result Required. Sodium Potassium Chloride Carbon Dioxide Anion Gap BUN Creatinine Creat Clearance w eGFR POC Glucometer [phone] Random Glucose Calcium Phosphorus Magnesium Total Bilirubin AST ALT Alkaline Phosphatase Total Protein Albumin Tobramycin Trough 02/10/18 02/10/18 02/11/18 17:28 18:02 05:40 WBC 5.2 D RBC 3.47 L Hgb 10.2 L Hct 30.1 L MCV 86.7 MCH 29.4 MCHC 33.9 RDW 16.8 H Plt Count 208 D MPV 9.5 Neutrophils % 96.0 H Lymphocytes % 3.1 L Monocytes % 0.8 L D Eosinophils % 0.0 D Basophils % 0.1 Anticoagulation Therapy No Result Required. Puncture Site Right radial ABG pH 7.29 L ABG pCO2 at Pt Temp 57.1 H D ABG pO2 at Pt Temp 108.0 H D ABG HCO3 26.7 H ABG O2 Sat (Measured) 98.5 ABG O2 Content 14.5 L ABG Base Excess 0.0 Asaf Test Positive O2 Delivery Device Mech vent Oxygen Flow Rate 60% Vent Mode A/c Vent Rate 18 Mechanical Rate No Result Required. PEEP 5.0 Pressure Support Vent 400 Sodium Potassium Chloride Carbon Dioxide Anion Gap BUN Creatinine Creat Clearance w eGFR POC Glucometer [phone] Random Glucose Calcium Phosphorus Magnesium Total Bilirubin AST ALT Alkaline Phosphatase Total Protein Albumin Tobramycin Trough 02/11/18 02/11/18 02/11/18 05:40 05:40 09:48 WBC RBC Hgb Hct MCV MCH MCHC RDW Plt Count MPV Neutrophils % Lymphocytes % Monocytes % Eosinophils % Basophils % Anticoagulation Therapy Puncture Site Right radial ABG pH 7.30 L ABG pCO2 at Pt Temp 57.8 H ABG pO2 at Pt Temp 86.7 D ABG HCO3 27.9 H ABG O2 Sat (Measured) 97.3 ABG O2 Content 13.1 L ABG Base Excess 1.3 Asaf Test Positive O2 Delivery Device Oxygen Flow Rate 40 Vent Mode A/c Vent Rate 18 Mechanical Rate PEEP 5.0 Pressure Support Vent 420 Sodium 134 L Potassium 4.7 Chloride 98 Carbon Dioxide 29 Anion Gap 7 L BUN 34 H Creatinine 1.1 H Creat Clearance w eGFR 47.67 POC Glucometer Random Glucose 174 H Calcium 7.8 L Phosphorus 3.3 Magnesium 1.9 Total Bilirubin 0.4 D AST 13 L ALT 9 L Alkaline Phosphatase 62 Total Protein 5.5 L Albumin 1.5 L Tobramycin Trough 2.0 Active Medications Generic Name Dose Route Start Last Admin Trade Name Freq PRN Reason Stop Dose Admin Acetaminophen 650 mg 02/07/18 10:31 02/08/18 05:48 Tylenol - PO 650 mg Q6H PRN Administration FEVER Albuterol/Ipratropium 1 amp 02/08/18 12:00 02/11/18 07:50 Duoneb - NEB 1 amp RQID ALEKSANDAR Administration Chlorhexidine Gluconate 1 applic 02/08/18 22:00 02/10/18 22:04 Hibiclens For Decolonization - TP 1 applic HS ALEKSANDAR Administration Collagenase 1 applic 02/09/18 10:00 02/11/18 10:27 Santyl - TP 1 applic DAILY ALEKSANDAR Administration Heparin Sodium (Porcine) 5,000 unit 02/07/18 06:00 02/11/18 06:10 Heparin - SQ 5,000 unit TID ALEKSANDAR Administration Fluconazole 100 mls @ 100 mls/hr 02/11/18 10:00 02/11/18 10:24 Diflucan 200 Mg/D5w Premixed Ivpb - IVPB 100 mls/hr DAILY ALEKSANDAR Administration Norepinephrine Bitartrate 8, 500 mls @ 18.75 mls/hr 02/10/18 12:15 02/11/18 01:46 000 mcg/ Dextrose IV 5 mcg/min TITR ALEKSANDAR 18.75 mls/hr Protocol Administration 5 MCG/MIN Tobramycin Sulfate 80 mg/ 102 mls @ 100 mls/hr 02/11/18 10:00 Sodium Chloride IVPB DAILY ALEKSANDAR Protocol Insulin Aspart 1 vial 02/08/18 16:30 02/11/18 07:14 Novolog Vial Sliding Scale - SQ 2 units ACHS ALEKSANDAR Administration Protocol Methylprednisolone Sodium Succinate 40 mg 02/10/18 12:15 02/11/18 10:23 Solu-Medrol - IVPUSH 40 mg Q8H-IV ALEKSANDAR Administration Pantoprazole Sodium 40 mg 02/08/18 11:15 02/11/18 10:24 Protonix Iv IVPUSH 40 mg DAILY ALEKSANDAR Administration ASSESSMENT/PLAN: 82 F pmhx o Chronic respiratory failure via tracheostomy, COPD, DVT, A-fib, PEG tube, known lung CA (dominant mass in the JANY with bilateral nodules likely mets), DM, sacral decubitus ulcer, and dementia was admitted due to respiratory distress and hypoxia. #Neuro - at baseline #CV -Off pressors, maintaining BP -L Subclavian line inserted. 02/09 -CVP 9 -Paroxysmal A-fib: no on AC per record -Monitor BP #Pulmonary -Pneumonia possibly post-obstructive, aspiration -Known L Lung mass -COPD -Duonebs QID, Arformoterol held -IV abx (Day 5):1 dose Vancomycin. Fluconazole. Tobramycin held. Will add Ceftriaxone as per ID -FU Id reccs -IV medrol 40mg q8h -1 dose 40mg IV lasix #GI -tube feeds -PPx Protonix 40mg IV daily # -Sepsis secondary to UTI -Cont. IV abx as stated above -WBC 5.2 -Bcx growing proteus and ESBL Klebsiella -yeast like organism in Ucx. -hx of MDRO, ESBL -Contact precautions -ADA -monitor urine output, creatinine -avoid nephrotoxins -Follow BMPs #Endocrine -BGM -ISS #Intugementary -Sacral Decub Stage 4 -wound care #Anemia -s/p 2 PRBC 02/09 -stable -monitor H&H #FEN -No IV fluids -Mag Repleted -NPO, Begin tube feeds tomorrow #PPx -hep sq -protonix Transfer Med-surge Visit type - Emergency Visit Emergency Visit: Yes ED Registration Date: 02/07/18 Care time: The patient presented to the Emergency Department on the above date and was hospitalized for further evaluation of their emergent condition. - New Patient This patient is new to me today: No - Critical Care Critical Care patient: Yes Total Critical Care Time (in minutes): 45 Critical Care Statement: The care of this patient involved high complexity decision making to prevent further life threatening deterioration of the patient 's condition and/or to evaluate & treat vital organ system(s) failure or risk of failure.
--- NOTE | 2018-02-11 14:43 | CONSULT ---
Admitting History and Physical - Primary Care Physician PCP: Alonzo Fontana - Admission History of Present Illness: Per EMR: 82 F pmhx o Chronic respiratory failure via tracheostomy, COPD, DVT, A-fib, PEG tube, known lung CA (dominant mass in the JANY with bilateral nodules likely mets), DM, sacral decubitus ulcer, and dementia was admitted due to respiratory distress and hypoxia. Elderly female patient BIBA for respiratory distress and hypoxia, apparent aspiration of Ensure shake.per emr note. Family requested swallowing evaluation. 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 TF. NPO? This is my first consult with this pt. History Source: Medical Record Limitations to Obtaining History: Clinical Condition - Past Medical History [employer]: Yes: Dementia Cardiovascular: Yes: AFIB, Other (DVT) Pulmonary: Yes: Cancer (Lung), COPD, Other (Tracheostomy) Gastrointestinal: Yes: Other (PEG) Endocrine: Yes: Diabetes Mellitus - Smoking History Smoking history: Unknown if ever smoked Have you smoked in the past 12 months: No - Alcohol/Substance Use Hx Alcohol Use: No History - Admission Reason For Visit: URINARY TRACT INFECTION,DECUBITUS OF SACRAL REGION - Diagnostics X-ray: Report Reviewed - General Mental Status: Awake and Alert, Able to Follow Commands, Confused (denies use of ventilator. Thinks she ate today (npo)) Attention: Distractible, Mild Impairment Ability to Follow Directions: Fair Head/Neck Control: Needs Assist - Hearing Hearing: Functional Speech Evaluation - Communication Primary Language: [place] Oral Expression Ability: Yes: Non-Vocal (ventilator dependent. Size 8 Shiley) - Language/Auditory Comprehension Follows: Yes: 1 Stage Simple Commands - Swallow Evaluation/Bedside Assessment Current Nutritional Intake: NPO, G Tube Recommendations - Speech Evaluation, Impression/Plan Impression: Mouths some words with reduced articulatory excursion, making it difficuklt to read pt's lips at times. Confused, says she ate today, denies vent use. Swallows her saliva. - Dysphagia Impressions/Plan *Silent aspiration: cannot be R/O at bedside Recommendations: Passy Dimas Valve (Size 8 shiley may be too large for successful passage of air around trach with PMV, but may be beneficial to assess. Swallow eval to follow), Other (Obtain info from family: Has she been strictly NPO at retirement? (documented suction of "Joe Ensure" looking substance upon admission. h/o CVA?How long has she been NPO/vented/trached? h/o PMV/PO intake trials?)
[2018-02-11] MEDS ORDERED: ACETAMINOPHEN 325 MG TABLET (FP) PO PRN (22:18)
[2018-02-11] MEDS: CHLORHEXIDINE GLUCONATE 4% CLEANSER FOR DECOLONIZATION TP SCH ×2 (23:40→23:44)
[2018-02-12] MEDS ORDERED: PT OWN MED DRAWER 7, Y5N ONE ×2 (00:11→08:08)
[2018-02-12] MEDS: methylPREDNISolone NA SUCC 40 MG/1 ML VIAL IVPUSH SCH ×3 (02:30→17:30)
[2018-02-12] MEDS: HEPARIN NA (PORCINE) 5,000 UNITS/ML 1ML VIAL SQ SCH ×3 (06:33→21:57)
[2018-02-12] MEDS: INSULIN SLIDING SCALE (NOVOLOG) 1 VIAL SQ SCH ×4 (06:41→22:07)
[2018-02-12 07:19] LABS: HEMATOCRIT 30.3 % (32.4-45.2); HEMOGLOBIN 10.2 GM/dL (10.7-15.3); MCH 29.4 pg (25.7-33.7); MCHC 33.5 g/dl (32.0-36.0); MEAN CELL VOLUME 87.8 fl (80-96); MEAN PLT VOLUME 9.5 fl (7.5-11.1); PLATELET COUNT 201 K/MM3 (134-434); RBC 3.46 M/mm3 (3.60-5.2); RDW 16.6 % (11.6-15.6); WHITE BLOOD COUNT 6.9 K/mm3 (4.0-10.0)
[2018-02-12] MEDS: ALBUTEROL SO4 2.5/IPRATROPIUM 0.5 INH SOL 3 ML VIAL.NEB. NEB SCH ×4 (07:30→20:40)
[2018-02-12] MEDS ORDERED: INSULIN (NOVOLOG) ASPART 100 UNITS/ML 10ML VIAL ONE (08:08)
[2018-02-12 08:20] LABS: CHLORIDE 100 mmol/L (98-107); POTASSIUM 5.4 mmol/L (3.5-5.1); SODIUM 134 mmol/L (136-145)
[2018-02-12 08:32] LABS: ALBUMIN 1.8 g/dl (3.4-5.0); ALK PHOS 57 U/L (45-117); ANION GAP 9 (8-16); BILIRUBIN,TOTAL 0.2 mg/dL (0.2-1.0); BLOOD UREA NITROGEN 45 mg/dL (7-18); CALCIUM 8.2 mg/dL (8.5-10.1); CO2 25 mmol/L (21-32); CREATININE 1.1 mg/dL (0.55-1.02); GLUCOSE,RANDOM 171 mg/dL (74-106); MAGNESIUM 2.2 mg/dL (1.8-2.4); PHOSPHOROUS 3.8 mg/dL (2.5-4.9); SGOT/AST 21 U/L (15-37); SGPT/ALT 13 U/L (12-78)
--- NOTE | 2018-02-12 10:08 | PN ---
Progress Note (short form) - Note Progress Note: pt seen/ examined. chart reviewed awake on vent all f/u noted wbc - normalized Vital Signs Temp 97.4 F L 02/12/18 06:00 Pulse 72 02/12/18 08:36 Resp 18 02/12/18 08:36 BP 132/67 02/12/18 06:00 Pulse Ox 97 02/12/18 08:36 Intake & Output 02/11/18 02/11/18 02/12/18 11:59 23:59 11:59 Intake Total 815 940 490 Output Total 400 400 400 Balance 415 540 90 Weight 178 lb 12.718 oz Intake: IV 75 0 Levophed - 8,000 Mcg In 75 0 D5w - 492 ml @ 5 MCG/MIN 18.75 mls/hr IV TITR ALEKSANDAR Rx#:[id number] IVPB 100 Tube Feeding 500 600 350 Tube Irrigant 240 240 140 Output: Urine 400 400 400 Cotter 400 400 400 Other: Voiding Method Indwelling Catheter Indwelling Catheter Indwelling Catheter Bowel Movement Yes Yes Yes # Bowel Movements 1 2 Weight Measurement Method Built in [facility] Active Medications Acetaminophen (Tylenol -) 650 mg PO Q6H PRN PRN Reason: FEVER Albuterol/Ipratropium (Duoneb -) 1 amp NEB RQID ALEKSANDAR Last Admin: 02/12/18 07:30 Dose: 1 amp Chlorhexidine Gluconate (Hibiclens For Decolonization -) 1 applic TP HS ALE[facility]AR Last Admin: 02/11/18 23:44 Dose: 1 applic Collagenase (Santyl -) 1 applic TP DAILY ALEKSANDAR Heparin Sodium (Porcine) (Heparin -) 5,000 unit SQ TID A[facility] Last Admin: 02/12/18 06:33 Dose: 5,000 unit Fluconazole (Diflucan 200 Mg/D5w Premixed Ivpb -) 100 mls @ 100 mls/hr IVPB DAILY ALEKSANDAR Tobramycin Sulfate 80 mg/ (Sodium Chloride) 102 mls @ 100 mls/hr IVPB DAILY [facility] PRN Reason: Protocol Insulin Aspart (Novolog Vial Sliding Scale -) 1 vial SQ ACHS ALEKSANDAR PRN Reason: Protocol Last Admin: 02/12/18 06:41 Dose: Not Given Methylprednisolone Sodium Succinate (Solu-Medrol -) 40 mg IVPUSH Q8H-IV [facility] Last Admin: 02/12/18 02:30 Dose: 40 mg Pantoprazole Sodium (Protonix Iv) 40 mg IVPUSH DAILY ALEKSANDAR CBC, BMP 02/12/18 06:50 02/12/18 06:50 Microbiology 02/10/18 08:20 Blood Culture - Preliminary Blood - Peripheral Venous NO GROWTH OBTAINED AFTER 48 HOURS, INCUBATION TO CONTINUE FOR 3 DAYS. 02/07/18 05:04 Gram Stain - Final Sputum - Endotrachea Suction/Ventilator Sputum Culture - Final Pseudomonas Aeruginosa Escherichia Coli 02/10/18 11:30 Blood Culture - Preliminary Blood - Central Line NO GROWTH OBTAINED AFTER 24 HOURS, INCUBATION TO CONTINUE FOR 4 DAYS. 02/07/18 02:50 Blood Culture - Final Blood - Peripheral Venous Klebsiella Pneumoniae - Esbl Staphylococcus Epidermidis Physical awake Gen: on vent ==s/p trach Heart: RRR Lung: Bilateral Rhonchi Abd: soft, non tender. peg + Ext: + edema A/P Respiratory Failure Lung ca Pneumonia Septic Shock Acute Renal Failure COPD Paroxsysmal Atrial Fibrillation. DM Sacral Ulcer--Stage 4 UtI Better Abx Monitor lytes Overall Condition improved continue present care will follow. Problem List - Problems (1) Atrial fibrillation Code(s): I48.91 - UNSPECIFIED ATRIAL FIBRILLATION Qualifiers: Atrial fibrillation type: paroxysmal Qualified Code(s): I48.0 - Paroxysmal atrial fibrillation (2) CHF (congestive heart failure) Code(s): I50.9 - HEART FAILURE, UNSPECIFIED Qualifiers: Heart failure type: unspecified Heart failure chronicity: unspecified Qualified Code(s): I50.9 - Heart failure, unspecified (3) Decubitus ulcer of sacral region, stage 4 Code(s): L89.154 - PRESSURE ULCER OF SACRAL REGION, STAGE 4
[2018-02-12] MEDS: FLUCONAZOLE 200 MG/D5W 100 ML IVPB SCH (10:28)
--- NOTE | 2018-02-12 11:02 | PN ---
Progress Note (short form) - Note Progress Note: PULMONARY Chart reviewed vss/afebrile Gen: vented, awake Heart: RRR Lung: bilateral rhonchi Abd: soft, nontender Ext: + edema labs/meds/notes/images reviewed Active Medications Acetaminophen (Tylenol -) 650 mg PO Q6H PRN PRN Reason: FEVER Last Admin: 02/08/18 05:48 Dose: 650 mg Albuterol/Ipratropium (Duoneb -) 1 amp NEB RQID [facility] Last Admin: 02/11/18 07:50 Dose: 1 amp Chlorhexidine Gluconate (Hibiclens For Decolonization -) 1 applic TP HS [facility] Last Admin: 02/10/18 22:04 Dose: 1 applic Collagenase (Santyl -) 1 applic TP DAILY [facility] Last Admin: 02/11/18 10:27 Dose: 1 applic Heparin Sodium (Porcine) (Heparin -) 5,000 unit SQ TID [facility] Last Admin: 02/11/18 06:10 Dose: 5,000 unit Fluconazole (Diflucan 200 Mg/D5w Premixed Ivpb -) 100 mls @ 100 mls/hr IVPB DAILY [facility] Last Admin: 02/11/18 10:24 Dose: 100 mls/hr Norepinephrine Bitartrate 8, (000 mcg/ Dextrose) 500 mls @ 18.75 mls/hr IV TITR [facility]; 5 MCG/MIN PRN Reason: Protocol Last Admin: 02/11/18 01:46 Dose: 5 mcg/min, 18.75 mls/hr Tobramycin Sulfate 80 mg/ (Sodium Chloride) 102 mls @ 100 mls/hr IVPB DAILY [facility] PRN Reason: Protocol Insulin Aspart (Novolog Vial Sliding Scale -) 1 vial SQ ACHS [facility] PRN Reason: Protocol Last Admin: 02/11/18 07:14 Dose: 2 units Methylprednisolone Sodium Succinate (Solu-Medrol -) 40 mg IVPUSH Q8H-IV [facility] Last Admin: 02/11/18 10:23 Dose: 40 mg Pantoprazole Sodium (Protonix Iv) 40 mg IVPUSH DAILY [facility] Last Admin: 02/11/18 10:24 Dose: 40 mg Chronic Respiratory Failure UTI Pneumonia Septic Shock Acute Kidney Injury COPD Atrial Fibrillation DM Lung Ca Sacral Decubitus Ulcer Dementia - continue antibiotics - lasix as needed - monitor H/H - monitor urine output, creatinine - inhaled bronchodilators - taper steroids - enteral feeds - DVT/GI prophylaxis - continue to monitor on vent floor Patrica HUDSON MD
[2018-02-12] MEDS: TOBRAMYCIN SULFATE 80 MG in SODIUM CHLORIDE 100 ML IVPB SCH (11:26)
[2018-02-12] MEDS: PANTOPRAZOLE SODIUM 40 MG VIAL IVPUSH SCH (11:28)
--- NOTE | 2018-02-12 13:45 | PN ---
Progress Note (short form) - Note Progress Note: ID Ceftriaxone and Tobramycin Selected Entries 02/12/18 02/12/18 10:00 12:11 Temperature 97.0 F L Pulse Rate 89 Respiratory 22 Rate Blood Pressure 126/69 Vented Microbiology 02/07/18 05:04 Sputum - Endotrachea Suction/Ventilator Gram Stain - Final 02/07/18 05:04 Sputum - Endotrachea Suction/Ventilator Sputum Culture - Final Pseudomonas Aeruginosa Escherichia Coli 02/07/18 03:00 Urine - Urine - Catheterized Urine Culture - Final Yeast Like Organism 02/07/18 02:50 Blood - Peripheral Venous Blood Culture - Final Proteus Mirabilis 02/07/18 02:50 Blood - Peripheral Venous Blood Culture - Final Klebsiella Pneumoniae - Esbl Staphylococcus Epidermidis 02/10/18 11:30 Blood - Central Line Blood Culture - Preliminary NO GROWTH OBTAINED AFTER 48 HOURS, INCUBATION TO CONTINUE FOR 3 DAYS. 02/10/18 08:20 Blood - Peripheral Venous Blood Culture - Preliminary NO GROWTH OBTAINED AFTER 48 HOURS, INCUBATION TO CONTINUE FOR 3 DAYS. Laboratory Tests 02/07/18 02/08/18 02/11/18 03:00 05:00 05:40 WBC 28.8 H Hgb 7.5 L Hct 22.7 L Plt Count 323 D BUN Creat Clearance w eGFR Ur Leukocyte Esterase 3+ H Urine RBC (Auto) 70 Tobramycin Trough 2.0 02/12/18 02/12/18 06:50 06:50 WBC 6.9 D Hgb 10.2 L Hct Plt Count 201 BUN 45 H Creat Clearance w eGFR 47.67 Ur Leukocyte Esterase Urine RBC (Auto) Tobramycin Trough Assessment Sepsis urinary trct Polymicrobial bacteremia includes yeast in the urine Plan Continue same antibiotic and Fluconazole Debbie BRYAN Problem List - Problems (1) Gram-negative bacteremia Code(s): R78.81 - BACTEREMIA (2) Decubitus ulcer of sacral region, stage 4 Code(s): L89.154 - PRESSURE ULCER OF SACRAL REGION, STAGE 4 (3) Sepsis Code(s): A41.9 - SEPSIS, UNSPECIFIED ORGANISM Qualifiers: Sepsis type: sepsis due to unspecified organism Qualified Code(s): A41.9 - Sepsis, unspecified organism (4) UTI (urinary tract infection) Code(s): N39.0 - URINARY TRACT INFECTION, SITE NOT SPECIFIED Qualifiers: Urinary tract infection type: site unspecified Hematuria presence: without hematuria Qualified Code(s): N39.0 - Urinary tract infection, site not specified
[2018-02-12] MEDS: COLLAGENASE CLOSTRIDIUM HIST. 30 GRAMS TUBE TP SCH (15:33)
[2018-02-13] MEDS: CHLORHEXIDINE GLUCONATE 4% CLEANSER FOR DECOLONIZATION TP SCH ×2 (00:56→22:23)
[2018-02-13] MEDS: methylPREDNISolone NA SUCC 40 MG/1 ML VIAL IVPUSH SCH ×3 (01:41→22:23)
[2018-02-13] MEDS: HEPARIN NA (PORCINE) 5,000 UNITS/ML 1ML VIAL SQ SCH ×3 (05:38→22:22)
[2018-02-13] MEDS: INSULIN SLIDING SCALE (NOVOLOG) 1 VIAL SQ SCH ×4 (06:07→22:22)
[2018-02-13 07:16] LABS: HEMATOCRIT 30.2 % (32.4-45.2); HEMOGLOBIN 10.2 GM/dL (10.7-15.3); MCHC 33.7 g/dl (32.0-36.0); MEAN CELL VOLUME 88.9 fl (80-96); MEAN PLT VOLUME 9.6 fl (7.5-11.1); PLATELET COUNT 217 K/MM3 (134-434); RDW 16.8 % (11.6-15.6); WHITE BLOOD COUNT 7.5 K/mm3 (4.0-10.0)
[2018-02-13 07:22] LABS: ARTERIAL BLD GAS O2 SATURATION 98.2 % (90-98.9); ARTERIAL BLOOD GAS BASE EXCESS 3.4 meq/l (-2-2); ARTERIAL BLOOD GAS PCO2 56.4 mmHg (35-45); ARTERIAL BLOOD GAS pH 7.34 (7.35-7.45)
[2018-02-13] MEDS: ALBUTEROL SO4 2.5/IPRATROPIUM 0.5 INH SOL 3 ML VIAL.NEB. NEB SCH ×4 (07:30→20:48)
[2018-02-13 07:33] LABS: ALLENS TEST POSITIVE
[2018-02-13 07:46] LABS: CHLORIDE 100 mmol/L (98-107); POTASSIUM 5.9 mmol/L (3.5-5.1); SODIUM 135 mmol/L (136-145)
[2018-02-13 07:52] LABS: ALBUMIN 1.9 g/dl (3.4-5.0); ALK PHOS 63 U/L (45-117); ANION GAP 3 (8-16); BILIRUBIN,TOTAL 0.5 mg/dL (0.2-1.0); BLOOD UREA NITROGEN 59 mg/dL (7-18); CALCIUM 8.2 mg/dL (8.5-10.1); CO2 32 mmol/L (21-32); CREATININE 1.2 mg/dL (0.55-1.02); GLUCOSE,RANDOM 186 mg/dL (74-106); SGOT/AST 44 U/L (15-37); SGPT/ALT 34 U/L (12-78); TOT PROT 6.1 g/dl (6.4-8.2)
[2018-02-13] MEDS ORDERED: SODIUM POLYSTYRENE SULFONATE 15 GM/60 ML BOTTLE GT ONE (08:28)
--- NOTE | 2018-02-13 08:29 | PN ---
Progress Note, Physician Chief Complaint: awake responds to simple commands on vent - Current Medication List Current Medications: Active Medications Acetaminophen (Tylenol -) 650 mg PO Q6H PRN PRN Reason: FEVER Albuterol/Ipratropium (Duoneb -) 1 amp NEB RQID [facility] Last Admin: 02/13/18 07:30 Dose: 1 amp Chlorhexidine Gluconate (Hibiclens For Decolonization -) 1 applic TP HS [facility] Last Admin: 02/13/18 00:56 Dose: 1 applic Collagenase (Santyl -) 1 applic TP DAILY [facility] Last Admin: 02/12/18 15:33 Dose: 1 applic Heparin Sodium (Porcine) (Heparin -) 5,000 unit SQ TID [facility] Last Admin: 02/13/18 05:38 Dose: 5,000 unit Fluconazole (Diflucan 200 Mg/D5w Premixed Ivpb -) 100 mls @ 100 mls/hr IVPB DAILY [facility] Last Admin: 02/12/18 10:28 Dose: 100 mls/hr Tobramycin Sulfate 80 mg/ (Sodium Chloride) 102 mls @ 100 mls/hr IVPB DAILY [facility] PRN Reason: Protocol Last Admin: 02/12/18 11:26 Dose: 100 mls/hr Insulin Aspart (Novolog Vial Sliding Scale -) 1 vial SQ ACHS [facility] PRN Reason: Protocol Last Admin: 02/13/18 06:07 Dose: Not Given Methylprednisolone Sodium Succinate (Solu-Medrol -) 40 mg IVPUSH Q8H-IV [facility] Last Admin: 02/13/18 01:41 Dose: 40 mg Pantoprazole Sodium (Protonix Iv) 40 mg IVPUSH DAILY [facility] Last Admin: 02/12/18 11:28 Dose: 40 mg - Objective Vital Signs: Vital Signs Temperature 98.8 F 02/13/18 06:00 Pulse Rate 75 02/13/18 08:16 Respiratory Rate 23 02/13/18 08:16 Blood Pressure 138/78 02/13/18 06:00 O2 Sat by Pulse Oximetry (%) 95 02/13/18 08:16 Constitutional: Yes: No Distress Cardiovascular: Yes: Pulse Irregular Respiratory: Yes: Diminished, Mechanically Ventilated Gastrointestinal: Yes: Normal Bowel Sounds, Soft, Other (gt). No: Tenderness Edema: No Labs: CBC, BMP 02/13/18 06:00 02/13/18 06:00 INR, PTT INR 1.20 (0.82-1.09) H 02/07/18 07:00 Problem List - Problems (1) Atrial fibrillation Code(s): I48.91 - UNSPECIFIED ATRIAL FIBRILLATION Qualifiers: Atrial fibrillation type: paroxysmal Qualified Code(s): I48.0 - Paroxysmal atrial fibrillation (2) CHF (congestive heart failure) Code(s): I50.9 - HEART FAILURE, UNSPECIFIED Qualifiers: Heart failure type: unspecified Heart failure chronicity: unspecified Qualified Code(s): I50.9 - Heart failure, unspecified (3) Decubitus ulcer of sacral region, stage 4 Code(s): L89.154 - PRESSURE ULCER OF SACRAL REGION, STAGE 4 (4) Multiple drug resistant organism (MDRO) culture positive Code(s): Z16.24 - RESISTANCE TO MULTIPLE ANTIBIOTICS (5) Diabetes Code(s): E11.9 - TYPE 2 DIABETES MELLITUS WITHOUT COMPLICATIONS (6) Hyperkalemia Code(s): E87.5 - HYPERKALEMIA Assessment/Plan PLAN Kayexalate to be given for hyperkalemia iv antibiotics taper solumedrol nebs GT feeding
[2018-02-13] MEDS ORDERED: PT OWN MED DRAWER 7, Y5N ONE (10:47)
[2018-02-13 10:49] LABS: PLATELET ESTIMATE ADEQUATE
[2018-02-13] MEDS: PANTOPRAZOLE SODIUM 40 MG VIAL IVPUSH SCH (11:05)
[2018-02-13] MEDS ORDERED: SODIUM POLYSTYRENE SULFONATE 15 GM/60 ML BOTTLE ONE (11:08)
[2018-02-13] MEDS: TOBRAMYCIN SULFATE 80 MG in SODIUM CHLORIDE 100 ML IVPB SCH (11:09)
[2018-02-13] MEDS ORDERED: INSULIN (NOVOLOG) ASPART 100 UNITS/ML 10ML VIAL ONE (11:25)
--- NOTE | 2018-02-13 11:28 | PN ---
Progress Note (short form) - Note Progress Note: PULMONARY Chart reviewed vss/afebrile/18/40/420/5 Gen: vented, awake Heart: RRR Lung: bilateral rhonchi Abd: soft, nontender Ext: + edema labs/meds/notes/images/abg reviewed Active Medications Acetaminophen (Tylenol -) 650 mg PO Q6H PRN PRN Reason: FEVER Last Admin: 02/08/18 05:48 Dose: 650 mg Albuterol/Ipratropium (Duoneb -) 1 amp NEB RQID [facility] Last Admin: 02/11/18 07:50 Dose: 1 amp Chlorhexidine Gluconate (Hibiclens For Decolonization -) 1 applic TP HS [facility] Last Admin: 02/10/18 22:04 Dose: 1 applic Collagenase (Santyl -) 1 applic TP DAILY [facility] Last Admin: 02/11/18 10:27 Dose: 1 applic Heparin Sodium (Porcine) (Heparin -) 5,000 unit SQ TID [facility] Last Admin: 02/11/18 06:10 Dose: 5,000 unit Fluconazole (Diflucan 200 Mg/D5w Premixed Ivpb -) 100 mls @ 100 mls/hr IVPB DAILY [facility] Last Admin: 02/11/18 10:24 Dose: 100 mls/hr Norepinephrine Bitartrate 8, (000 mcg/ Dextrose) 500 mls @ 18.75 mls/hr IV TITR [facility]; 5 MCG/MIN PRN Reason: Protocol Last Admin: 02/11/18 01:46 Dose: 5 mcg/min, 18.75 mls/hr Tobramycin Sulfate 80 mg/ (Sodium Chloride) 102 mls @ 100 mls/hr IVPB DAILY [facility] PRN Reason: Protocol Insulin Aspart (Novolog Vial Sliding Scale -) 1 vial SQ ACHS [facility] PRN Reason: Protocol Last Admin: 02/11/18 07:14 Dose: 2 units Methylprednisolone Sodium Succinate (Solu-Medrol -) 40 mg IVPUSH Q8H-IV [facility] Last Admin: 02/11/18 10:23 Dose: 40 mg Pantoprazole Sodium (Protonix Iv) 40 mg IVPUSH DAILY [facility] Last Admin: 02/11/18 10:24 Dose: 40 mg Chronic Respiratory Failure Gram neg bacteremia UTI Pneumonia Septic Shock Acute Kidney Injury COPD Atrial Fibrillation DM Lung Ca Sacral Decubitus Ulcer Dementia - continue antibiotics - lasix as needed - monitor H/H - monitor urine output, creatinine - inhaled bronchodilators - taper steroids - enteral feeds - DVT/GI prophylaxis - continue to monitor on vent floor/same settings Patrica HUDSON MD
[2018-02-13] MEDS: COLLAGENASE CLOSTRIDIUM HIST. 30 GRAMS TUBE TP SCH (13:58)
[2018-02-13] MEDS: FLUCONAZOLE 200 MG/D5W 100 ML IVPB SCH (13:58)
[2018-02-14] MEDS: HEPARIN NA (PORCINE) 5,000 UNITS/ML 1ML VIAL SQ SCH ×3 (05:41→22:34)
[2018-02-14] MEDS: INSULIN SLIDING SCALE (NOVOLOG) 1 VIAL SQ SCH ×4 (06:04→22:35)
[2018-02-14 07:18] LABS: ANION GAP 5 (8-16); BLOOD UREA NITROGEN 71 mg/dL (7-18); CALCIUM 8.5 mg/dL (8.5-10.1); CHLORIDE 101 mmol/L (98-107); CO2 34 mmol/L (21-32); CREATININE 1.2 mg/dL (0.55-1.02); GLUCOSE,RANDOM 181 mg/dL (74-106); POTASSIUM 5.7 mmol/L (3.5-5.1); SODIUM 140 mmol/L (136-145)
[2018-02-14] MEDS: ALBUTEROL SO4 2.5/IPRATROPIUM 0.5 INH SOL 3 ML VIAL.NEB. NEB SCH ×4 (07:30→21:30)
[2018-02-14] MEDS ORDERED: SODIUM POLYSTYRENE SULFONATE 15 GM/60 ML BOTTLE PO ONE (09:23)
[2018-02-14] MEDS: methylPREDNISolone NA SUCC 40 MG/1 ML VIAL IVPUSH SCH (11:09)
--- NOTE | 2018-02-14 11:10 | PN ---
Progress Note, Physician Chief Complaint: awake responds to simple commands on vent - Current Medication List Current Medications: Active Medications Acetaminophen (Tylenol -) 650 mg PO Q6H PRN PRN Reason: FEVER Albuterol/Ipratropium (Duoneb -) 1 amp NEB RQID [facility] Last Admin: 02/14/18 07:30 Dose: 1 amp Chlorhexidine Gluconate (Hibiclens For Decolonization -) 1 applic TP HS [facility] Last Admin: 02/13/18 22:23 Dose: 1 applic Collagenase (Santyl -) 1 applic TP DAILY [facility] Last Admin: 02/13/18 13:58 Dose: 1 applic Heparin Sodium (Porcine) (Heparin -) 5,000 unit SQ TID [facility] Last Admin: 02/14/18 05:41 Dose: 5,000 unit Fluconazole (Diflucan 200 Mg/D5w Premixed Ivpb -) 100 mls @ 100 mls/hr IVPB DAILY [facility] Last Admin: 02/13/18 13:58 Dose: 100 mls/hr Tobramycin Sulfate 80 mg/ (Sodium Chloride) 102 mls @ 100 mls/hr IVPB DAILY [facility] PRN Reason: Protocol Last Admin: 02/13/18 11:09 Dose: 100 mls/hr Insulin Aspart (Novolog Vial Sliding Scale -) 1 vial SQ ACHS [facility] PRN Reason: Protocol Last Admin: 02/14/18 06:04 Dose: 2 units Methylprednisolone Sodium Succinate (Solu-Medrol -) 40 mg IVPUSH Q12H [facility] Last Admin: 02/13/18 22:23 Dose: 40 mg Pantoprazole Sodium (Protonix Iv) 40 mg IVPUSH DAILY [facility] Last Admin: 02/13/18 11:05 Dose: 40 mg - Objective Vital Signs: Vital Signs Temperature 97.4 F L 02/14/18 06:00 Pulse Rate 68 02/14/18 08:21 Respiratory Rate 18 02/14/18 08:21 Blood Pressure 121/53 02/14/18 06:00 O2 Sat by Pulse Oximetry (%) 97 02/14/18 08:21 Constitutional: Yes: No Distress Cardiovascular: Yes: Regular Rate and Rhythm Respiratory: Yes: Diminished, Mechanically Ventilated, Rhonchi Gastrointestinal: Yes: Normal Bowel Sounds, Soft, Other (GT). No: Tenderness Edema: No Labs: CBC, BMP 02/13/18 06:00 02/14/18 06:30 INR, PTT INR 1.20 (0.82-1.09) H 02/07/18 07:00 Problem List - Problems (1) Atrial fibrillation Code(s): I48.91 - UNSPECIFIED ATRIAL FIBRILLATION Qualifiers: Atrial fibrillation type: paroxysmal Qualified Code(s): I48.0 - Paroxysmal atrial fibrillation (2) CHF (congestive heart failure) Code(s): I50.9 - HEART FAILURE, UNSPECIFIED Qualifiers: Heart failure type: unspecified Heart failure chronicity: unspecified Qualified Code(s): I50.9 - Heart failure, unspecified (3) Decubitus ulcer of sacral region, stage 4 Code(s): L89.154 - PRESSURE ULCER OF SACRAL REGION, STAGE 4 (4) Multiple drug resistant organism (MDRO) culture positive Code(s): Z16.24 - RESISTANCE TO MULTIPLE ANTIBIOTICS (5) Diabetes Code(s): E11.9 - TYPE 2 DIABETES MELLITUS WITHOUT COMPLICATIONS (6) Hyperkalemia Code(s): E87.5 - HYPERKALEMIA Assessment/Plan PLAN Kayexalate to be given for hyperkalemia iv antibiotics taper solumedrol nebs GT feeding
[2018-02-14] MEDS: PANTOPRAZOLE SODIUM 40 MG VIAL IVPUSH SCH (11:15)
[2018-02-14] MEDS: FLUCONAZOLE 200 MG/D5W 100 ML IVPB SCH (11:18)
[2018-02-14] MEDS: TOBRAMYCIN SULFATE 80 MG in SODIUM CHLORIDE 100 ML IVPB SCH (12:12)
--- NOTE | 2018-02-14 12:41 | PN ---
Progress Note (short form) - Note Progress Note: PULMONARY Chart reviewed vss/afebrile/18/40/420/5 Gen: vented, awake Heart: RRR Lung: bilateral rhonchi Abd: soft, nontender Ext: + edema labs/meds/notes/images/abg reviewed Active Medications Acetaminophen (Tylenol -) 650 mg PO Q6H PRN PRN Reason: FEVER Last Admin: 02/08/18 05:48 Dose: 650 mg Albuterol/Ipratropium (Duoneb -) 1 amp NEB RQID [facility] Last Admin: 02/11/18 07:50 Dose: 1 amp Chlorhexidine Gluconate (Hibiclens For Decolonization -) 1 applic TP HS [facility] Last Admin: 02/10/18 22:04 Dose: 1 applic Collagenase (Santyl -) 1 applic TP DAILY [facility] Last Admin: 02/11/18 10:27 Dose: 1 applic Heparin Sodium (Porcine) (Heparin -) 5,000 unit SQ TID [facility] Last Admin: 02/11/18 06:10 Dose: 5,000 unit Fluconazole (Diflucan 200 Mg/D5w Premixed Ivpb -) 100 mls @ 100 mls/hr IVPB DAILY [facility] Last Admin: 02/11/18 10:24 Dose: 100 mls/hr Norepinephrine Bitartrate 8, (000 mcg/ Dextrose) 500 mls @ 18.75 mls/hr IV TITR [facility]; 5 MCG/MIN PRN Reason: Protocol Last Admin: 02/11/18 01:46 Dose: 5 mcg/min, 18.75 mls/hr Tobramycin Sulfate 80 mg/ (Sodium Chloride) 102 mls @ 100 mls/hr IVPB DAILY [facility] PRN Reason: Protocol Insulin Aspart (Novolog Vial Sliding Scale -) 1 vial SQ ACHS [facility] PRN Reason: Protocol Last Admin: 02/11/18 07:14 Dose: 2 units Methylprednisolone Sodium Succinate (Solu-Medrol -) 40 mg IVPUSH Q8H-IV [facility] Last Admin: 02/11/18 10:23 Dose: 40 mg Pantoprazole Sodium (Protonix Iv) 40 mg IVPUSH DAILY [facility] Last Admin: 02/11/18 10:24 Dose: 40 mg Chronic Respiratory Failure Gram neg bacteremia UTI Pneumonia Septic Shock Acute Kidney Injury COPD Atrial Fibrillation DM Lung Ca Sacral Decubitus Ulcer Dementia - continue antibiotics - lasix as needed - monitor H/H and K+ - monitor urine output, creatinine - inhaled bronchodilators - taper steroids - enteral feeds - DVT/GI prophylaxis - continue to monitor on vent floor/same settings Patrica HUDSON MD
[2018-02-14] MEDS: CARBIDOPA/LEVODOPA 25/100 TABLET (FP) GT SCH ×2 (13:28→22:34)
[2018-02-14] MEDS: COLLAGENASE CLOSTRIDIUM HIST. 30 GRAMS TUBE TP SCH (14:35)
[2018-02-14] MEDS: CHLORHEXIDINE GLUCONATE 4% CLEANSER FOR DECOLONIZATION TP SCH (22:35)
[2018-02-15] MEDS: CARBIDOPA/LEVODOPA 25/100 TABLET (FP) GT SCH ×3 (05:31→23:43)
[2018-02-15] MEDS: HEPARIN NA (PORCINE) 5,000 UNITS/ML 1ML VIAL SQ SCH ×3 (05:31→23:45)
[2018-02-15] MEDS: INSULIN SLIDING SCALE (NOVOLOG) 1 VIAL SQ SCH ×3 (06:06→17:00)
[2018-02-15] MEDS: ALBUTEROL SO4 2.5/IPRATROPIUM 0.5 INH SOL 3 ML VIAL.NEB. NEB SCH ×4 (07:30→21:10)
[2018-02-15 07:44] LABS: ANION GAP 7 (8-16); BLOOD UREA NITROGEN 77 mg/dL (7-18); CALCIUM 8.5 mg/dL (8.5-10.1); CHLORIDE 103 mmol/L (98-107); CO2 32 mmol/L (21-32); GLUCOSE,RANDOM 164 mg/dL (74-106); POTASSIUM 4.9 mmol/L (3.5-5.1); SODIUM 142 mmol/L (136-145)
[2018-02-15 07:45] LABS: CREATININE 1.1 mg/dL (0.55-1.02)
[2018-02-15] MEDS ORDERED: PT OWN MED DRAWER 7, Y5N ONE (09:18)
[2018-02-15] MEDS: FLUCONAZOLE 200 MG/D5W 100 ML IVPB SCH (09:20)
[2018-02-15] MEDS: methylPREDNISolone NA SUCC 40 MG/1 ML VIAL IVPUSH SCH (09:20)
[2018-02-15] MEDS: PANTOPRAZOLE SODIUM 40 MG VIAL IVPUSH SCH (09:20)
[2018-02-15] MEDS: TOBRAMYCIN SULFATE 80 MG in SODIUM CHLORIDE 100 ML IVPB SCH (10:52)
[2018-02-15] MEDS: COLLAGENASE CLOSTRIDIUM HIST. 30 GRAMS TUBE TP SCH (10:52)
--- NOTE | 2018-02-15 11:42 | PN ---
Progress Note (short form) - Note Progress Note: day #9 tobramycin afebrile Vital Signs Period Temp Pulse Resp BP Sys/Espinal Pulse Ox Last 24 Hr 97.4 F-98.5 F 76-90 18-19 118-138/1-73 97-97 trach to vent left IJ CVP cor-rrr lungs- decreased bs at bases abd soft,+GT ext no edema garber sacral ulcer CBC, BMP 02/13/18 06:00 02/15/18 06:35 Microbiology 02/10/18 08:20 Blood - Peripheral Venous Blood Culture - Final NO GROWTH AFTER 5 DAYS INCUBATION 02/10/18 11:30 Blood - Central Line Blood Culture - Preliminary NO GROWTH OBTAINED AFTER 96 HOURS, INCUBATION TO CONTINUE FOR 1 DAYS. 02/07/18 05:04 Sputum - Endotrachea Suction/Ventilator Gram Stain - Final 02/07/18 05:04 Sputum - Endotrachea Suction/Ventilator Sputum Culture - Final Pseudomonas Aeruginosa Escherichia Coli 02/07/18 02:50 Blood - Peripheral Venous Blood Culture - Final Klebsiella Pneumoniae - Esbl Staphylococcus Epidermidis 02/07/18 02:50 Blood - Peripheral Venous Blood Culture - Final Proteus Mirabilis 02/07/18 13:20 Urine - Urine Garber Legionella Antigen - Final 02/07/18 13:20 Urine - Urine Garber Streptococcus pneumoniae Antigen (M - Final 02/07/18 03:00 Urine - Urine - Catheterized Urine Culture - Final Yeast Like Organism cxray bibasilar effusions/infiltrates, left hilar mass, congestion imp/reccd sepsis-polymicrobial -urine/decub day #9 of 10 tobramycin, d/c antiibotics after am dose tomorrow repeat blood cultures negative' lung ca chronic resp failure sacral ulcer- wound care per surgery strict isolation -contact MDRO Problem List - Problems (1) Pneumonia Code(s): J18.9 - PNEUMONIA, UNSPECIFIED ORGANISM Qualifiers: Pneumonia type: due to unspecified organism Laterality: unspecified laterality Lung location: unspecified part of lung Qualified Code(s): J18.9 - Pneumonia, unspecified organism (2) UTI (urinary tract infection) Code(s): N39.0 - URINARY TRACT INFECTION, SITE NOT SPECIFIED Qualifiers: Urinary tract infection type: site unspecified Hematuria presence: without hematuria Qualified Code(s): N39.0 - Urinary tract infection, site not specified (3) Chronic respiratory failure Code(s): J96.10 - CHRONIC RESPIRATORY FAILURE, UNSP W HYPOXIA OR HYPERCAPNIA (4) Lung cancer Code(s): C34.90 - MALIGNANT NEOPLASM OF UNSP PART OF UNSP BRONCHUS OR LUNG (5) Multiple drug resistant organism (MDRO) culture positive Code(s): Z16.24 - RESISTANCE TO MULTIPLE ANTIBIOTICS
--- NOTE | 2018-02-15 12:02 | PN ---
Progress Note (short form) - Note Progress Note: PULMONARY Vented, poorly responsive. No fevers recorded. Last Vital Signs Temp Pulse Resp BP Pulse Ox 98.0 F 88 18 129/65 97 02/15/18 09:30 02/15/18 09:30 02/15/18 09:30 02/15/18 09:30 02/15/18 09:52 Gen: vented, awake Heart: RRR Lung: decreased breath sounds at the bases Abd: soft, nontender Ext: + edema CBC, BMP 02/13/18 06:00 02/15/18 06:35 Active Medications Acetaminophen (Tylenol -) 650 mg PO Q6H PRN PRN Reason: FEVER Albuterol/Ipratropium (Duoneb -) 1 amp NEB RQID [facility] Last Admin: 02/15/18 07:30 Dose: 1 amp Carbidopa/Levodopa (Sinemet 25/100 -) 1 each GT TID [facility] Last Admin: 02/15/18 05:31 Dose: 1 each Chlorhexidine Gluconate (Hibiclens For Decolonization -) 1 applic TP HS [facility] Last Admin: 02/14/18 22:35 Dose: 1 applic Collagenase (Santyl -) 1 applic TP DAILY [facility] Last Admin: 02/15/18 10:52 Dose: 1 applic Heparin Sodium (Porcine) (Heparin -) 5,000 unit SQ TID [facility] Last Admin: 02/15/18 05:31 Dose: 5,000 unit Fluconazole (Diflucan 200 Mg/D5w Premixed Ivpb -) 100 mls @ 100 mls/hr IVPB DAILY [facility] Last Admin: 02/15/18 09:20 Dose: 100 mls/hr Tobramycin Sulfate 80 mg/ (Sodium Chloride) 102 mls @ 100 mls/hr IVPB DAILY [facility] PRN Reason: Protocol Last Admin: 02/15/18 10:52 Dose: 100 mls/hr Insulin Aspart (Novolog Vial Sliding Scale -) 1 vial SQ ACHS [facility] PRN Reason: Protocol Last Admin: 02/15/18 06:06 Dose: Not Given Methylprednisolone Sodium Succinate (Solu-Medrol -) 40 mg IVPUSH DAILY [facility] Last Admin: 02/15/18 09:20 Dose: 40 mg Pantoprazole Sodium (Protonix Iv) 40 mg IVPUSH DAILY [facility] Last Admin: 02/15/18 09:20 Dose: 40 mg A/P Chronic Respiratory Failure Gram negative Bacteremia UTI Pneumonia Sacral Decubitus Ulcer Septic Shock resolved Acute Kidney Injury improving COPD Atrial Fibrillation DM Lung Ca Dementia - continue antibiotics - lasix as needed - monitor urine output, creatinine - inhaled bronchodilators - taper steroids - enteral feeds - DVT/GI prophylaxis
--- NOTE | 2018-02-15 13:13 | PN ---
Progress Note (short form) - Note Progress Note: Awake Comfortable Chart reviewed All f/u noted afebrile Vital Signs Temp 98.0 F 02/15/18 09:30 Pulse 88 02/15/18 09:30 Resp 21 02/15/18 11:40 BP 129/65 02/15/18 09:30 Pulse Ox 100 02/15/18 10:00 Intake & Output 02/14/18 02/15/18 02/15/18 23:59 11:59 23:59 Intake Total 1075 1050 Output Total 650 350 Balance 425 700 Intake: IVPB 200 200 Tube Feeding 575 550 Tube Irrigant 300 300 Output: Urine 650 350 Cotter 650 350 Other: Voiding Method Indwelling Catheter Indwelling Catheter Bowel Movement No Yes Active Medications Acetaminophen (Tylenol -) 650 mg PO Q6H PRN PRN Reason: FEVER Albuterol/Ipratropium (Duoneb -) 1 amp NEB RQID [facility] Last Admin: 02/15/18 11:40 Dose: 1 amp Carbidopa/Levodopa (Sinemet 25/100 -) 1 each GT TID [facility] Last Admin: 02/15/18 05:31 Dose: 1 each Chlorhexidine Gluconate (Hibiclens For Decolonization -) 1 applic TP HS [facility] Last Admin: 02/14/18 22:35 Dose: 1 applic Collagenase (Santyl -) 1 applic TP DAILY [facility] Last Admin: 02/15/18 10:52 Dose: 1 applic Heparin Sodium (Porcine) (Heparin -) 5,000 unit SQ TID [facility] Last Admin: 02/15/18 05:31 Dose: 5,000 unit Fluconazole (Diflucan 200 Mg/D5w Premixed Ivpb -) 100 mls @ 100 mls/hr IVPB DAILY [facility] Last Admin: 02/15/18 09:20 Dose: 100 mls/hr Tobramycin Sulfate 80 mg/ (Sodium Chloride) 102 mls @ 100 mls/hr IVPB DAILY [facility] PRN Reason: Protocol Last Admin: 02/15/18 10:52 Dose: 100 mls/hr Insulin Aspart (Novolog Vial Sliding Scale -) 1 vial SQ ACHS [facility] PRN Reason: Protocol Last Admin: 02/15/18 12:41 Dose: Not Given Methylprednisolone Sodium Succinate (Solu-Medrol -) 40 mg IVPUSH DAILY [facility] Last Admin: 02/15/18 09:20 Dose: 40 mg Pantoprazole Sodium (Protonix Iv) 40 mg IVPUSH DAILY [facility] Last Admin: 02/15/18 09:20 Dose: 40 mg CBC, BMP 02/13/18 06:00 02/15/18 06:35 Microbiology 02/10/18 11:30 Blood Culture - Final Blood - Central Line NO GROWTH AFTER 5 DAYS INCUBATION 02/10/18 08:20 Blood Culture - Final Blood - Peripheral Venous NO GROWTH AFTER 5 DAYS INCUBATION Physical awake Gen: on vent ==s/p trach Heart: RRR Lung: Bilateral Rhonchi-- diminished at bases Abd: soft, non tender. peg + Ext: + edema A/P Respiratory Failure Lung ca Pneumonia Septic Shock Acute Renal Failure COPD Paroxsysmal Atrial Fibrillation. DM Sacral Ulcer--Stage 4 UtI Better Abx per i/d -- d/c in am after am dose Monitor lytes/ cultures Overall Condition improved continue present care will follow. Local wound care Problem List - Problems (1) Atrial fibrillation Code(s): I48.91 - UNSPECIFIED ATRIAL FIBRILLATION Qualifiers: Atrial fibrillation type: paroxysmal Qualified Code(s): I48.0 - Paroxysmal atrial fibrillation (2) CHF (congestive heart failure) Code(s): I50.9 - HEART FAILURE, UNSPECIFIED Qualifiers: Heart failure type: unspecified Heart failure chronicity: unspecified Qualified Code(s): I50.9 - Heart failure, unspecified (3) Decubitus ulcer of sacral region, stage 4 Code(s): L89.154 - PRESSURE ULCER OF SACRAL REGION, STAGE 4
[2018-02-15] MEDS: CHLORHEXIDINE GLUCONATE 4% CLEANSER FOR DECOLONIZATION TP SCH (23:44)
[2018-02-16] MEDS: INSULIN SLIDING SCALE (NOVOLOG) 1 VIAL SQ SCH ×5 (00:01→22:03)
[2018-02-16] MEDS: CARBIDOPA/LEVODOPA 25/100 TABLET (FP) GT SCH ×3 (06:05→22:02)
[2018-02-16] MEDS: HEPARIN NA (PORCINE) 5,000 UNITS/ML 1ML VIAL SQ SCH ×2 (06:05→22:01)
[2018-02-16] MEDS: ALBUTEROL SO4 2.5/IPRATROPIUM 0.5 INH SOL 3 ML VIAL.NEB. NEB SCH ×4 (07:55→20:35)
[2018-02-16] MEDS: methylPREDNISolone NA SUCC 40 MG/1 ML VIAL IVPUSH SCH (10:57)
[2018-02-16] MEDS: PANTOPRAZOLE SODIUM 40 MG VIAL IVPUSH SCH (11:03)
[2018-02-16] MEDS: TOBRAMYCIN SULFATE 80 MG in SODIUM CHLORIDE 100 ML IVPB SCH (11:08)
--- NOTE | 2018-02-16 11:09 | PN ---
Progress Note (short form) - Note Progress Note: PULMONARY Vented, awake. No fevers recorded. Last Vital Signs Temp Pulse Resp BP Pulse Ox 97.7 F 93 H 18 142/75 100 02/16/18 06:00 02/16/18 06:00 02/16/18 06:03 02/16/18 06:00 02/15/18 21:00 Gen: vented, awake Heart: RRR Lung: decreased breath sounds at the bases Abd: soft, nontender Ext: + edema CBC, BMP 02/13/18 06:00 02/15/18 06:35 Active Medications Acetaminophen (Tylenol -) 650 mg PO Q6H PRN PRN Reason: FEVER Last Admin: 02/15/18 23:43 Dose: 650 mg Albuterol/Ipratropium (Duoneb -) 1 amp NEB RQID [facility] Last Admin: 02/16/18 07:55 Dose: 1 amp Carbidopa/Levodopa (Sinemet 25/100 -) 1 each GT TID [facility] Last Admin: 02/16/18 06:05 Dose: 1 each Chlorhexidine Gluconate (Hibiclens For Decolonization -) 1 applic TP HS [facility] Last Admin: 02/15/18 23:44 Dose: 1 applic Collagenase (Santyl -) 1 applic TP DAILY [facility] Last Admin: 02/15/18 10:52 Dose: 1 applic Heparin Sodium (Porcine) (Heparin -) 5,000 unit SQ TID [facility] Last Admin: 02/16/18 06:05 Dose: 5,000 unit Fluconazole (Diflucan 200 Mg/D5w Premixed Ivpb -) 100 mls @ 100 mls/hr IVPB DAILY [facility] Last Admin: 02/15/18 09:20 Dose: 100 mls/hr Tobramycin Sulfate 80 mg/ (Sodium Chloride) 102 mls @ 100 mls/hr IVPB DAILY [facility] PRN Reason: Protocol Last Admin: 02/16/18 11:08 Dose: 100 mls/hr Insulin Aspart (Novolog Vial Sliding Scale -) 1 vial SQ ACHS [facility] PRN Reason: Protocol Last Admin: 02/16/18 06:04 Dose: Not Given Methylprednisolone Sodium Succinate (Solu-Medrol -) 40 mg IVPUSH DAILY [facility] Last Admin: 02/16/18 10:57 Dose: 40 mg Pantoprazole Sodium (Protonix Iv) 40 mg IVPUSH DAILY [facility] Last Admin: 02/16/18 11:03 Dose: 40 mg A/P Chronic Respiratory Failure Gram Negative Bacteremia UTI Pneumonia Sacral Decubitus Ulcer Septic Shock resolved Acute Kidney Injury improving COPD Atrial Fibrillation DM Lung Ca Dementia - continue antibiotics per ID - lasix as needed - monitor urine output, creatinine - inhaled bronchodilators - taper off steroids - continue volume assist control - poor candidate for weaning at this time - enteral feeds - DVT/GI prophylaxis
--- NOTE | 2018-02-16 11:24 | PN ---
Progress Note, Physician Chief Complaint: awake , alert Appears depressed no distress - Current Medication List Current Medications: Active Medications Acetaminophen (Tylenol -) 650 mg PO Q6H [facility] Albuterol/Ipratropium (Duoneb -) 1 amp NEB RQID [facility] Last Admin: 02/16/18 07:55 Dose: 1 amp Carbidopa/Levodopa (Sinemet 25/100 -) 1 each GT TID [facility] Last Admin: 02/16/18 06:05 Dose: 1 each Chlorhexidine Gluconate (Hibiclens For Decolonization -) 1 applic TP HS [facility] Last Admin: 02/15/18 23:44 Dose: 1 applic Collagenase (Santyl -) 1 applic TP DAILY [facility] Last Admin: 02/15/18 10:52 Dose: 1 applic Escitalopram Oxalate (Lexapro Oral Solution -) 10 mg PEG DAILY [facility] Heparin Sodium (Porcine) (Heparin -) 5,000 unit SQ BID [facility] Fluconazole (Diflucan 200 Mg/D5w Premixed Ivpb -) 100 mls @ 100 mls/hr IVPB DAILY [facility] Last Admin: 02/15/18 09:20 Dose: 100 mls/hr Tobramycin Sulfate 80 mg/ (Sodium Chloride) 102 mls @ 100 mls/hr IVPB DAILY [facility] PRN Reason: Protocol Last Admin: 02/16/18 11:08 Dose: 100 mls/hr Insulin Aspart (Novolog Vial Sliding Scale -) 1 vial SQ ACHS [facility] PRN Reason: Protocol Last Admin: 02/16/18 11:10 Dose: Not Given Pantoprazole Sodium (Protonix Iv) 40 mg IVPUSH DAILY [facility] Last Admin: 02/16/18 11:03 Dose: 40 mg Prednisone (Deltasone -) 30 mg PEG DAILY ONE Stop: 02/16/18 11:19 - Objective Vital Signs: Vital Signs Temperature 97.7 F 02/16/18 06:00 Pulse Rate 93 H 02/16/18 06:00 Respiratory Rate 18 02/16/18 10:35 Blood Pressure 142/75 02/16/18 06:00 O2 Sat by Pulse Oximetry (%) 100 02/15/18 21:00 Constitutional: Yes: No Distress, Calm Cardiovascular: Yes: Pulse Irregular Respiratory: Yes: Diminished, Mechanically Ventilated. No: Rales, Rhonchi Gastrointestinal: Yes: Normal Bowel Sounds, Soft, Abdomen, Obese. No: Tenderness Edema: Yes Labs: CBC, BMP 02/13/18 06:00 02/15/18 06:35 INR, PTT INR 1.20 (0.82-1.09) H 02/07/18 07:00 Problem List - Problems (1) Atrial fibrillation Code(s): I48.91 - UNSPECIFIED ATRIAL FIBRILLATION Qualifiers: Atrial fibrillation type: paroxysmal Qualified Code(s): I48.0 - Paroxysmal atrial fibrillation (2) CHF (congestive heart failure) Code(s): I50.9 - HEART FAILURE, UNSPECIFIED Qualifiers: Heart failure type: unspecified Heart failure chronicity: unspecified Qualified Code(s): I50.9 - Heart failure, unspecified (3) Decubitus ulcer of sacral region, stage 4 Code(s): L89.154 - PRESSURE ULCER OF SACRAL REGION, STAGE 4 (4) Multiple drug resistant organism (MDRO) culture positive Code(s): Z16.24 - RESISTANCE TO MULTIPLE ANTIBIOTICS (5) Diabetes Code(s): E11.9 - TYPE 2 DIABETES MELLITUS WITHOUT COMPLICATIONS (6) Hyperkalemia Code(s): E87.5 - HYPERKALEMIA Assessment/Plan PLAN last day Tobramycin today will dc after today's dose change to Prednsione continue with Diflucan If she remains afebrile, will dc tomorrow Heparin sc for DVT prophylaxis add lexapro -- for depression
[2018-02-16] MEDS ORDERED: ACETAMINOPHEN 325 MG TABLET (FP) PO SCH (11:30)
[2018-02-16] MEDS: FLUCONAZOLE 200 MG/D5W 100 ML IVPB SCH (12:07)
[2018-02-16] MEDS: ACETAMINOPHEN 650 MG/20.3 ML ORAL SOLUTION (CUPS) PEG SCH ×3 (12:07→23:29)
[2018-02-16] MEDS: ESCITALOPRAM OXALATE 5 MG/5 ML PEG SCH (14:12)
[2018-02-16] MEDS: COLLAGENASE CLOSTRIDIUM HIST. 30 GRAMS TUBE TP SCH (14:47)
--- NOTE | 2018-02-16 15:55 | PN ---
Progress Note (short form) - Note Progress Note: day #10 tobramycin alert afebrile Vital Signs Period Temp Pulse Resp BP Sys/Espinal Pulse Ox Last 24 Hr 97.7 F-98.7 F 64-93 18-18 131-151/64-86 100 trach to vent cor-rrr lungs clear abd soft,nt, +gt ext no edema CBC, BMP 02/13/18 06:00 02/15/18 06:35 Microbiology 02/10/18 11:30 Blood - Central Line Blood Culture - Final NO GROWTH AFTER 5 DAYS INCUBATION 02/10/18 08:20 Blood - Peripheral Venous Blood Culture - Final NO GROWTH AFTER 5 DAYS INCUBATION 02/07/18 05:04 Sputum - Endotrachea Suction/Ventilator Gram Stain - Final 02/07/18 05:04 Sputum - Endotrachea Suction/Ventilator Sputum Culture - Final Pseudomonas Aeruginosa Escherichia Coli 02/07/18 02:50 Blood - Peripheral Venous Blood Culture - Final Klebsiella Pneumoniae - Esbl Staphylococcus Epidermidis 02/07/18 02:50 Blood - Peripheral Venous Blood Culture - Final Proteus Mirabilis 02/07/18 13:20 Urine - Urine Cotter Legionella Antigen - Final 02/07/18 13:20 Urine - Urine [place] Streptococcus pneumoniae Antigen (M - Final 02/07/18 03:00 Urine - Urine - Catheterized Urine Culture - Final Yeast Like Organism cxray bibasilar effusions/infiltrates, left hilar mass, congestion imp/reccd sepsis-polymicrobial -urine/decub day #10 f 10 tobramycin, d/c tobramycin repeat blood cultures negative' lung ca chronic resp failure sacral ulcer- wound care per surgery strict isolation -contact MDRO Problem List - Problems (1) Pneumonia Code(s): J18.9 - PNEUMONIA, UNSPECIFIED ORGANISM Qualifiers: Pneumonia type: due to unspecified organism Laterality: unspecified laterality Lung location: unspecified part of lung Qualified Code(s): J18.9 - Pneumonia, unspecified organism (2) UTI (urinary tract infection) Code(s): N39.0 - URINARY TRACT INFECTION, SITE NOT SPECIFIED Qualifiers: Urinary tract infection type: site unspecified Hematuria presence: without hematuria Qualified Code(s): N39.0 - Urinary tract infection, site not specified (3) Chronic respiratory failure Code(s): J96.10 - CHRONIC RESPIRATORY FAILURE, UNSP W HYPOXIA OR HYPERCAPNIA (4) Lung cancer Code(s): C34.90 - MALIGNANT NEOPLASM OF UNSP PART OF UNSP BRONCHUS OR LUNG (5) Multiple drug resistant organism (MDRO) culture positive Code(s): Z16.24 - RESISTANCE TO MULTIPLE ANTIBIOTICS
[2018-02-16] MEDS ORDERED: INSULIN (NOVOLOG) ASPART 100 UNITS/ML 10ML VIAL ONE ×2 (18:36→21:47)
[2018-02-16] MEDS: CHLORHEXIDINE GLUCONATE 4% CLEANSER FOR DECOLONIZATION TP SCH (22:01)
[2018-02-17] MEDS: CARBIDOPA/LEVODOPA 25/100 TABLET (FP) GT SCH ×2 (06:40→15:07)
[2018-02-17] MEDS: ACETAMINOPHEN 650 MG/20.3 ML ORAL SOLUTION (CUPS) PEG SCH ×2 (06:40→11:52)
[2018-02-17] MEDS: INSULIN SLIDING SCALE (NOVOLOG) 1 VIAL SQ SCH ×2 (06:42→11:51)
[2018-02-17 06:53] VITALS: BP 166/91; PULSE 103; TEMP 98
[2018-02-17] MEDS: ALBUTEROL SO4 2.5/IPRATROPIUM 0.5 INH SOL 3 ML VIAL.NEB. NEB SCH ×2 (08:00→11:55)
[2018-02-17] MEDS ORDERED: predniSONE 5 MG/5 ML ORAL SOLN- UNIT-DOSE CUP PEG SCH (10:00)
[2018-02-17] MEDS ORDERED: PT OWN MED DRAWER 7, Y5N ONE (10:20)
[2018-02-17] MEDS: FLUCONAZOLE 200 MG/D5W 100 ML IVPB SCH (10:31)
[2018-02-17] MEDS: HEPARIN NA (PORCINE) 5,000 UNITS/ML 1ML VIAL SQ SCH (10:33)
[2018-02-17] MEDS: PANTOPRAZOLE SODIUM 40 MG VIAL IVPUSH SCH (10:33)
[2018-02-17] MEDS: ESCITALOPRAM OXALATE 5 MG/5 ML PEG SCH (10:33)
[2018-02-17] MEDS: COLLAGENASE CLOSTRIDIUM HIST. 30 GRAMS TUBE TP SCH (10:34)
--- NOTE | 2018-02-17 12:04 | DS ---
Physical Examination Vital Signs: Vital Signs Temperature 98.0 F 02/17/18 06:00 Pulse Rate 103 H 02/17/18 06:00 Respiratory Rate 18 02/17/18 10:33 Blood Pressure 166/91 02/17/18 06:00 O2 Sat by Pulse Oximetry (%) 100 02/15/18 21:00 Constitutional: Yes: No Distress, Calm Cardiovascular: Yes: Regular Rate and Rhythm Respiratory: Yes: Mechanically Ventilated Gastrointestinal: Yes: Normal Bowel Sounds, Soft. No: Tenderness Edema: No Labs: CBC, BMP 02/13/18 06:00 02/15/18 06:35 Discharge Summary Reason For Visit: URINARY TRACT INFECTION,DECUBITUS OF SACRAL REGION Current Active Problems Atrial fibrillation (Acute) CHF (congestive heart failure) (Acute) Chronic respiratory failure (Acute) Decubitus ulcer of sacral region, stage 4 (Acute) Dementia (Acute) Fever (Acute) Gram-negative bacteremia (Acute) Hyperkalemia (Acute) Multiple drug resistant organism (MDRO) culture positive (Acute) Pneumonia (Acute) Sepsis (Acute) UTI (urinary tract infection) (Acute) Hospital Course: PCP: [facility] HISTORY OF PRESENT ILLNESS: Pt is an 82 y/o F [facility] resident with PMH COPD s/p trach, DM, DVT, AF, Lung CA, Stage IV decub, Dementia, nonverbal who was reportedly given ensure, which she aspirated. Pt became distressed and EMS was called. Suctioning yielded copious amounts of her ensure and her status improved. In ED, IV access was unsuccessful, so a L femoral line was placed. ER course was notable for: (1) Fever 100.9 (2) 19 (higher than usual leucocytosis), Hb 8.1, [facility] 1.1, BNP 51830, Trop neg, UA 3+LE/WBCs, Yeast (3) CXR: b/l patchy opacification, blunting of R Costo-phrenic angle HOSPITALIZATION COURSE Seen by ID , Pulmonary -- Was septic On antibiotics MULTI DRUG resistant Klebsiella, gram negative bacteremia- positive blood cultures Sepsis resolved WBC better pt clinincally improved on Steroids and antibiotics Completed 10 days of Tobramycin Afebrile awake and at baseline mental status Will need tapering off Prednisone stable for dc to [facility] Condition: Improved - Instructions Disposition: [facility] FACILITY - Home Medications Comprehensive Discharge Medication List: Ambulatory Orders Acetaminophen Oral Solution [Tylenol 160mg/5mL Oral Solution -] 160 mg GT Q6H PRN 11/09/17 Albuterol 0.083% Nebulizer Hue [Ventolin 0.083% Nebulizer Soln -] 1 neb NEB Q4H PRN 11/09/17 Aspirin [ASA -] 81 mg GT DAILY 11/09/17 Ipratropium [place] [Atrovent Hfa] 4 puff IH Q4H 11/09/17 Sennosides [Senna] 9.7 ml GT HS 11/09/17 Albuterol 2.5/Ipratropium 0.5 [Duoneb -] 1 amp NEB Q6H PRN #60 amp 11/26/17 Amino Acids/Protein Hydrolys [Prosource No Carb Liquid Pkt] 30 ml GT DAILY packet 11/26/17 Bacitracin - [Bacitracin Topical Ointment -] 1 applic TP BID tube 11/26/17 Nystatin/Triamcinolone Top Oin [Mycolog II -] 1 applic TP BID applic 11/26/17 Ascorbic Acid [Vitamin C -] 500 mg GT BID 02/07/18 Budesonide/Formeterol Fumarate [SYMBICORT 160/4.5mcg -] 2 inh PO BID 02/07/18 Carbidopa/Levodopa [Carbidopa-Levodopa 25-100 Tab] 1 each GT Q8H 02/07/18 Docusate Liquid [Colace Liquid -] 100 mg GT TID 02/07/18 Ergocalciferol (Vitamin D2) [Ergocalciferol] 6.25 ml GT WEEKLY 02/07/18 Famotidine [Pepcid -] 20 mg GT DAILY 02/07/18 Ferrous Sulfate *Liquid* [Feosol] 6.8 ml PO DAILY 02/07/18 Insulin Glargine,Hum.rec.anlog [Lantus Solostar] 5 unit SQ HS 02/07/18 Zinc Oxide 20% Topical Oint 454 gm NR ASDIR 02/07/18
--- NOTE | 2018-02-17 12:16 | PN ---
Progress Note, Physician History of Present Illness: PULMONARY AWAKE,ALERT ON VENT SUPPORT,-RESP DISTRESS - Current Medication List Current Medications: Active Medications Acetaminophen (Tylenol Oral Solution -) 650 mg PEG Q6H [facility] Last Admin: 02/17/18 11:52 Dose: 650 mg Albuterol/Ipratropium (Duoneb -) 1 amp NEB RQID [facility] Last Admin: 02/17/18 08:00 Dose: 1 amp Carbidopa/Levodopa (Sinemet 25/100 -) 1 each GT TID [facility] Last Admin: 02/17/18 06:40 Dose: 1 each Chlorhexidine Gluconate (Hibiclens For Decolonization -) 1 applic TP HS [facility] Last Admin: 02/16/18 22:01 Dose: 1 applic Collagenase (Santyl -) 1 applic TP DAILY [facility] Last Admin: 02/17/18 10:34 Dose: 1 applic Escitalopram Oxalate (Lexapro Oral Solution -) 10 mg PEG DAILY [facility] Last Admin: 02/17/18 10:33 Dose: 10 mg Heparin Sodium (Porcine) (Heparin -) 5,000 unit SQ BID [facility] Last Admin: 02/17/18 10:33 Dose: 5,000 unit Fluconazole (Diflucan 200 Mg/D5w Premixed Ivpb -) 100 mls @ 100 mls/hr IVPB DAILY [facility] Last Admin: 02/17/18 10:31 Dose: 100 mls/hr Tobramycin Sulfate 80 mg/ (Sodium Chloride) 102 mls @ 100 mls/hr IVPB DAILY [facility] ; Protocol Last Admin: 02/16/18 11:08 Dose: 100 mls/hr Insulin Aspart (Novolog Vial Sliding Scale -) 1 vial SQ ACHS [facility]; Protocol Last Admin: 02/17/18 11:51 Dose: 2 units Pantoprazole Sodium (Protonix Iv) 40 mg IVPUSH DAILY [facility] Last Admin: 02/17/18 10:33 Dose: 40 mg Prednisone (Deltasone -) 30 mg PEG DAILY [facility] Last Admin: 02/17/18 10:32 Dose: 30 mg - Objective Vital Signs: Vital Signs Temperature 98.0 F 02/17/18 06:00 Pulse Rate 103 H 02/17/18 06:00 Respiratory Rate 18 02/17/18 10:33 Blood Pressure 166/91 02/17/18 06:00 O2 Sat by Pulse Oximetry (%) 100 02/15/18 21:00 Constitutional: Yes: Well Nourished, Calm Eyes: Yes: WNL HENT: Yes: WNL Neck: Yes: Supple (TRACH) Cardiovascular: Yes: Pulse Irregular, S1, S2 Respiratory: Yes: Diminished Gastrointestinal: Yes: Normal Bowel Sounds, Soft Extremities: Yes: WNL Edema: No Problem List - Problems (1) Atrial fibrillation Code(s): I48.91 - UNSPECIFIED ATRIAL FIBRILLATION Qualifiers: Atrial fibrillation type: paroxysmal Qualified Code(s): I48.0 - Paroxysmal atrial fibrillation (2) CHF (congestive heart failure) Code(s): I50.9 - HEART FAILURE, UNSPECIFIED Qualifiers: Heart failure type: unspecified Heart failure chronicity: unspecified Qualified Code(s): I50.9 - Heart failure, unspecified (3) Chronic respiratory failure Code(s): J96.10 - CHRONIC RESPIRATORY FAILURE, UNSP W HYPOXIA OR HYPERCAPNIA (4) Dementia Code(s): F03.90 - UNSPECIFIED DEMENTIA WITHOUT BEHAVIORAL DISTURBANCE Qualifiers: Dementia type: unspecified type Dementia behavioral disturbance: without behavioral disturbance Qualified Code(s): F03.90 - Unspecified dementia without behavioral disturbance (5) Gram-negative bacteremia Code(s): R78.81 - BACTEREMIA (6) Diabetes Code(s): E11.9 - TYPE 2 DIABETES MELLITUS WITHOUT COMPLICATIONS (7) Lung cancer Code(s): C34.90 - MALIGNANT NEOPLASM OF UNSP PART OF UNSP BRONCHUS OR LUNG (8) Ulcer of sacral region, stage 4 Code(s): L98.429 - NON-PRESSURE CHRONIC ULCER OF BACK WITH UNSPECIFIED SEVERITY Assessment/Plan A/P Chronic Respiratory Failure Gram Negative Bacteremia UTI Pneumonia Sacral Decubitus Ulcer Septic Shock resolved Acute Kidney Injury improving COPD Atrial Fibrillation DM Lung Ca Dementia - continue antibiotics per ID - lasix as needed - monitor urine output, creatinine - inhaled bronchodilators - taper off steroids - continue volume assist control - poor candidate for weaning at this time - enteral feeds - DVT/GI prophylaxis
[2018-02-17] MEDS: TOBRAMYCIN SULFATE 80 MG in SODIUM CHLORIDE 100 ML IVPB SCH (12:50)
== END 2018-02-17 15:25 | DRG 870 ==
LOC: JER 02:00 → UNDOADMIN 05:01 → JERBED 05:01 → JICU 07:45 → J5S 02-11 21:45
PROVIDERS: ADMIT Internal Medicine; ATTEND Internal Medicine
PROC: 5A1955Z Respiratory Ventilation, Greater than 96 Consecutive Hours (ICD-10-PCS; principal; 2018-02-07)
PROC: 05H633Z Insertion of Infusion Device into Left Subclavian Vein, Percutaneous Approach (ICD-10-PCS; 2018-02-09)
PROC: 30233N1 Transfusion of Nonautologous Red Blood Cells into Peripheral Vein, Percutaneous Approach (ICD-10-PCS; 2018-02-09)
DX: A41.9 Sepsis, unspecified organism (principal); L89.154 Pressure ulcer of sacral region, stage 4; R65.21 Severe sepsis with septic shock; J18.9 Pneumonia, unspecified organism; J96.22 Acute and chronic respiratory failure with hypercapnia; N39.0 Urinary tract infection, site not specified; Z99.11 Dependence on respirator [ventilator] status; C34.90 Malignant neoplasm of unspecified part of unspecified bronchus or lung; N17.9 Acute kidney failure, unspecified; E87.2 Acidosis; F03.90 Unspecified dementia, unspecified severity, without behavioral disturbance, psychotic disturbance, mood disturbance, and anxiety; J44.9 Chronic obstructive pulmonary disease, unspecified; I50.9 Heart failure, unspecified; Z93.0 Tracheostomy status; I48.0 Paroxysmal atrial fibrillation; E11.9 Type 2 diabetes mellitus without complications; E87.5 Hyperkalemia; Z16.24 Resistance to multiple antibiotics; D64.9 Anemia, unspecified
CPT/HCPCS: 36415; 36430; 36600; 71045-TC-FY; 80048; 80053; 80200; 81003; 81015; 82375; 82550; 82803; 82962; 83050; 83605; 83735; 83880; 84100; 84484; 85025; 85027; 85610; 85730; 86850; 86900; 86901; 86922; 87040; 87070; 87077; 87086; 87184; 87186; 87205; 87899; 93005; 93010; 94002; 94640; 99285-25; J0131; J1644; J7030; J7620; P9038; P9058